=== PATIENT | male | born 1960 | race Two or more races ===

== ENCOUNTER → 2020-01-05 08:18 | Outpatient (REF) | payer OTHER, SELFPAY ==
--- NOTE | 2020-01-05 08:26 | CA_ITS ---
Transthoracic Echocardiogram Patient (Last, First, Middle): Tavares Cummings, Gender: Male Date of : 1960 Age: 59 Procedure Date: 01/05/2020 Procedure Type: Transthoracic Echocardiogram Location: OP Height: 162.56 cm Weight: 68.04 kg BSA: 1.73 m2 Heart Rate: bpm BP: 116 / 61 mmHg Analyst: JEAN CARLOS Referring MD: Glory Saeed MD Radiation Control Worker: Bimal Carlton MD Symptoms: Q21.0 - Ventricular septal defect Study Quality: Good ECG Rhythm: Sinus Conclusions: - 1. Small muscular VSD 2. Normal LV systolic and RV systolic function 3. Normal cardiac valvular Doppler 4. Normal RV systolic pressure 5. No pericardial effusion Findings Left Ventricle Normal left ventricular size, thickness, and systolic function. The visually estimated ejection fraction is between 60-65%. Diastolic function is normal for age. There is evidence of a small muscular ventricular septal defect with left to right shunting. Right Ventricle Normal right ventricular cavity size and systolic function. Atria Both atria are normal in size. There is no evidence of interatrial shunt. Aortic Valve Normal aortic valve structure and function. There is no aortic valve stenosis. There is no aortic valve regurgitation. Mitral Valve Normal mitral valve structure and function. There is trace mitral valve regurgitation. There is no mitral valve stenosis. Pulmonic Valve The pulmonic valve is likely normal. Tricuspid Valve Normal tricuspid valve structure. There is trace tricuspid valve regurgitation. The right ventricular systolic pressure is normal. The right ventricular systolic pressure is 25 mmHg. Normal right atrial pressure. There is no evidence of pulmonary hypertension. Great Vessels All visible segments of the aorta are normal in size. The pulmonary artery was not well visualized. Venous The inferior vena cava is normal in size and collapses greater than 50% with inspiration. Pericardium/Pleural There is no evidence of pericardial effusion. Prior Study Comparison No significant change compared to prior study dated: 09/06/2015. Measurements 2D Linear Measurements IVSd: 0.91 0.6-0.9/0.6-1.0 cm LVIDd: 4.81 3.9-5.3/4.2-5.9 cm LVIDd Index: 2.78 2.4-3.2/2.2-3.1 cm/m2 LVIDs: 3.47 2.0-3.6 cm LVPWd: 0.88 0.7-1.1 cm Ao Root: 2.70 2.1-3.5 cm LA Diam: 3.00 2.7-3.8/3.0-4.0 cm LAIDs Index: 1.73 1.5-2.3 cm/m2 LV Mass: 183.26 67-162/88-224 g LV Mass Index: 105.93 43-95/49-115 g/m2 LVOT Diam: 2.00 3.0+(-)1.3 cm 2D Systolic Function EF 4C: 54.10 >55% EF 2C: 61.40 >55% EF BiP: 56.70 >55% Mitral Valve MV Pk E: 0.78 MV PK A: 0.49 MV Decel Time: 187.00 E/A: 1.60 E'Lateral: 12.40 E'Medial: 10.20 E/E' Med: 7.60 E/E' Lat: 6.30 PHT: 55.00 MVA PHT: 4.00 Decel [place]: 4.14 Aortic Valve AoV Pk Ari: 1.21 AoV Pk Grad: 6.00 LVOT LVOT Pk Ari: 0.99 LVOT Mn Ari: 0.61 LVOT VTI: 0.21 LVOT Pk Grad: 4.00 LVOT Mn Grad: 2.00 LVOT Diam: 2.00 LVOT Area: 3.14 Diastolic Function MV Pk E: 0.78 MV Pk A: 0.49 E/A: 1.60 E'Medial: 10.20 E/E' Med: 7.60 E' Laterial: 12.40 E/E' Lat: 6.30 Tricuspid Valve TR Pk Ari: 2.33 TR Pk Grad: 22.00 RA Press: 3.00 RVSP: 25.00 Great Vessels Aorta Ao Root-2D: 2.70 2.0-3.7 cm Ao Asc: 2.90 2.1-3.4 cm Updated in Other Vendor System with Status of Final Bimal Carlton MD electronically signed on 01/06/2020 9:40:30 AM with status of Final
== END ==
LOC: HO.CARD 08:18
PROVIDERS: Visit Provider Internal Medicine
DX: Q21.0 Ventricular septal defect (principal)
CPT/HCPCS: 93306

== ENCOUNTER 2020-03-16 11:34 | Outpatient (REF) | payer OTHER, SELFPAY | END 2020-03-16 11:35 | disposition home or self-care (01) | LOC: HO.LAB 11:34 | PROVIDERS: PCP Internal Medicine; Visit Provider Internal Medicine | DX: Z20.828 Contact with and (suspected) exposure to other viral communicable diseases (principal) | CPT/HCPCS: 36415; C9803; U0003 ==

== ENCOUNTER 2020-05-11 15:11 | Outpatient (REF) | payer OTHER, SELFPAY | END 2020-05-11 15:12 | disposition home or self-care (01) | LOC: HO.LAB 15:11 | PROVIDERS: Visit Provider Internal Medicine | DX: Z20.822 Contact with and (suspected) exposure to COVID-19 (principal) | CPT/HCPCS: 36415; C9803; U0003; U0005 ==

== ENCOUNTER 2020-07-23 17:45 | Emergency (ER) | payer OTHER, SELFPAY ==
--- NOTE | ~2020-07-23 | XR_ITS ---
EXAMINATION: XR CHEST CLINICAL INFORMATION: Chest pain COMPARISON: 10/31/2017 TECHNIQUE: Frontal view of the chest was obtained. FINDINGS: The lungs are well expanded. There is no focal consolidation, edema, or effusion. No pneumothorax. The cardiomediastinal silhouette is within normal limits. No acute osseous abnormality. XR/XR chest 1V IMPRESSION: Clear lungs.
[2020-07-23 18:24] VITALS: BP 137/86; PULSE 58; RESP 20; TEMP 36.8; O2SAT 99; BMI 24.9
--- NOTE | 2020-07-23 18:26 | ECG_ITS ---
Test Reason : CHEST PAIN Blood Pressure : / mmHG Vent. Rate : 054 BPM Atrial Rate : 054 BPM P-R Int : 148 ms QRS Dur : 090 ms QT Int : 392 ms P-R-T Axes : 019 002 008 degrees QTc Int : 371 ms Sinus bradycardia Minimal voltage criteria for LVH, may be normal variant Borderline ECG When compared with ECG of 29-AUG-2019 20:28, No significant change was found Referred By: Generic ED Physician Electronically Signed By:WM WINTERS MD
[2020-07-23 18:55] LABS: MANUAL DIFF FLAG NO
[2020-07-23 19:03] LABS: Basophils Percent Auto 0.3 % (0-2); Eosinophils Absolute Auto 0.1 X10*3/uL (0.0-0.4); Eosinophils Percent Auto 1.3 % (0-4); Hematocrit 41.5 % (42-52); Hemoglobin 14.1 g/dl (14.0-18.0); Imm Gran Abs Auto 0.01 X10*3/uL (0.00-0.03); Imm Gran Pct Auto 0.1 % (0.0-0.4); Lymphocytes Absolute Auto 2.8 X10*3/uL (1.2-4.9); Lymphocytes Percent Auto 35.1 % (20-40); Mean Corpuscular Hemoglobin 29.4 pg (27.0-33.0); Mean Corpuscular Volume 86.6 fL (80-98); Mean Platelet Volume 10.3 fL (9.4-12.4); Monocytes Absolute Auto 0.7 X10*3/uL (0.1-1.2); Monocytes Percent Auto 8.2 % (2-11); Neutrophils Absolute Auto 4.4 X10*3/uL (2.0-8.3); Platelet Count 210 X10*3/uL (160-400); Red Blood Count 4.79 X10*6/uL (4.60-5.80)
[2020-07-23 19:24] LABS: Anion Gap 13 (12-20); Blood Urea Nitrogen 17 mg/dL (9-16); Carbon Dioxide 29 mmol/L (22-29); Chloride 101 mmol/L (96-108); Creatinine Clr Calc Pharmacy 63.1; Estimated Glomerular Filt Rate > 60; Glucose Random 90 mg/dL (60-115); Sodium 139 mmol/L (135-145)
[2020-07-23 19:32] LABS: Troponin-I High Sensitivity < 3.5 ng/L (<3.5-35.0)
--- NOTE | 2020-07-24 01:48 | ED_ITS ---
HPI - Chest Pain General Chief Complaint: Chest Pain Stated Complaint: chest pain Time Seen by Provider: 07/24/20 00:17 Source: patient Mode of arrival: ambulatory Limitations: language barrier History of Present Illness HPI narrative: 59-year-old male with past history of ventral septal defect presents with chest pain that started while he was working in the heat. 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 He stated that he was sweating and noted to have substernal chest pain that is now alleviated. The pain started at 4:00 p.m., felt tight, and was easily resolved with rest. He did report some dizziness. At this time he denies chest pain or pressure, palpitations, shortness of breath, shortness breath on exertion, abdominal pain, abdominal distention, dysuria, hematuria, fevers, chills, nausea, vomiting, diarrhea, constipation, ed fannie, dizziness, lightheadedness, or weakness. MD complaint: chest discomfort Pertinent past history: other (Ventral septal defect) Onset (ago): hour(s) (4:00 p.m.) Timing of current episode: episodic and now resolved Prior episodes: No Onset: during exertion (And prolonged heat exposure) Pain location: substernal Pain radiation: none Severity: mild Quality: tightness Relieving factors: rest Exacerbating factors: exertion (Prolonged heat exposure) Treatment prior to arrival: none Risk Factors Thoracic aortic dissection risk factors: none Related Data Previous Rx's Medication Instructions Recorded acetaminophen 650 mg 650 mg PO Q8H PRN 30 Days #90 tab 06/19/20 tablet,extended release Allergies Allergy/AdvReac Type Severity Reaction Status Date / Time omeprazole Allergy Intermediate sob,tachyca Verified 07/23/20 18:23 rdia ribavirin Allergy Intermediate rash Verified 07/23/20 18:23 Review of Systems Review of Systems: Constitutional: No Weight loss, No Fever, No Chills, No Night Sweats, No Fatigue, No Malaise ENT/Mouth: No Hearing loss, No Ear Pain, No Nasal Congestion, No Sinus Pain, No Hoarseness, No sore throat, No Rhinorrhea, No Swallowing Difficulty Eyes: No Eye Pain, No Swelling, No Redness, No Foreign Body, No Discharge, No Vision Changes Cardiovascular: Positive and now resolved Chest Pain, no SOB, no Dyspnea on Exertion, No Orthopnea, No Edema, No Palpitations Respiratory: No Cough, No Sputum, No Wheezing, No Smoke Exposure, No Dyspnea Gastrointestinal: pos Nausea, No Vomiting, No Diarrhea, No abdominal Pain, No Hematochezia, No Melena Genitourinary: No irregular bleeding, No Dysuria, No Urinary Frequency, No Hematuria, No Urinary Incontinence, No Urgency, No Flank Pain, No Urinary Flow Changes, No Hesitancy Musculoskeletal: No joint pain, No Myalgias, No Joint Swelling Skin: No Skin Lesions, No rash Neuro: No Weakness, No Numbness, No Paresthesias, No Loss of Consciousness, No Dizziness, No Headache Psych: No Anxiety/Panic, No Depression, No SI/HI/AH/VH Heme/Lymph: No Bruising, No Bleeding,No Lymphadenopathy Endocrine: No Polyuria, No Polydipsia, No Temperature Intolerance Yes all other systems are reviewed and are negative [facility] Past Medical History Attestation statement: The following information was validated with the patient. Source: old records reviewed Medical History History of hepatitis C virus infection VSD (ventricular septal defect) Surgical History No pertinent past surgical history Family History Family History Father CVD (cardiovascular disease) Mother Hypertension Family/Other FH: mental illness Social History Social History Alcohol intake: former Year quit: 2009 Smoking Status: Former smoker Tobacco Type: Cigarette Advance Directives: No Advance Directives Information Provided: No Physical Exam Vital Signs: Vital Signs: Last Vital Signs Temp 98.2 F 07/23/20 18:24 Pulse 58 07/23/20 18:24 Resp 20 07/23/20 18:24 BP 137/86 07/23/20 18:24 Pulse Ox 99 07/23/20 18:24 Body Mass Index 24.9 Appearance: Alert. Oriented X3. No acute distress. Eyes: Pupils equal, round and reactive to light. ENT: Pharynx normal. Neck: Normal inspection. Neck supple. CVS: Normal heart rate and rhythm. Pulses normal. Respiratory: No respiratory distress. Breath sounds normal. Abdomen: Soft and nontender. Skin: Skin warm and dry. Normal skin color. Normal skin turgor. Extremities: No lower extremity edema. Neuro: No motor deficit. No sensory deficit. Course Course Course Narrative: 59-year-old male with past medical history of ventral septal defect presents with an episode of chest pain that occurred while he was working in prolonged heat. Patient's lab values, chest x-ray and EKG were completed while he was in the waiting room. Lab values are negative, troponin is 0, EKG shows no changes from prior EKGs dating back to August of 2019. There are no electrolyte imbalances, patient does not have any chest pain at this time, is eating, drinking, and has no symptoms. Chest x-ray is negative. Plan of care is to discharge home. Patient verbalized understanding of and agrees to plan of care. negative cleaner utilized for all correspondence. Google translate utilized for discharge instructions. MDM - Chest Pain Differential Diagnosis Differential diagnosis: Likely pneumothorax, atypical chest pain, st elevation myocardial infarction and costochondritis Differential diagnosis: Heat exhaustion, electrolyte imbalance Medical Records Data Attestation: I reviewed the patient's medical records. Lab Data Attestation: I reviewed the patient's lab results. Result diagrams: 07/23/20 18:49 07/23/20 18:49 Labs: Lab Results 07/23/20 07/23/20 07/23/20 Range/Units 18:49 18:49 18:49 WBC 8.0 (4.8-10.8) X10*3/uL RBC 4.79 (4.60-5.80) X10*6/uL Hgb 14.1 (14.0-18.0) g/dl Hct 41.5 L (42-52) % MCV 86.6 (80-98) fL MCH 29.4 (27.0-33.0) pg MCHC 34.0 (31.0-36.0) g/dl RDW 12.0 (11.0-16.0) % Plt Count 210 (160-400) X10*3/uL MPV 10.3 (9.4-12.4) fL Immature Gran % (Auto) 0.1 (0.0-0.4) % Neut % (Auto) 55.0 (45-73) % Lymph % (Auto) 35.1 (20-40) % [place] % (Auto) 8.2 (2-11) % Eos % (Auto) 1.3 (0-4) % Baso % (Auto) 0.3 (0-2) % Lymph # (Auto) 2.8 (1.2-4.9) X10*3/uL [place] # (Auto) 0.7 (0.1-1.2) X10*3/uL Eos # (Auto) 0.1 (0.0-0.4) X10*3/uL Baso # (Auto) 0.0 (0.0-0.2) X10*3/uL Abs Immat Gran (auto) 0.01 (0.00-0.03) X10*3/uL Absolute Neuts (auto) 4.4 (2.0-8.3) X10*3/uL Absolute Nucleated RBC 0.000 (0.0-0.012) X10*3/uL Nucleated RBC % (auto) 0.0 (0.0-0.2) /100WBC Hold Blue Top SEE NOTE Sodium 139 (135-145) mmol/L Potassium 4.0 (3.3-5.1) mmol/L Chloride 101 (96-108) mmol/L Carbon Dioxide 29 (22-29) mmol/L Anion Gap 13 (12-20) BUN 17 H (9-16) mg/dL Creatinine 1.08 (0.5-1.4) mg/dL Estim Creat Clear Calc 63.1 Estimated GFR > 60 Random Glucose 90 (60-115) mg/dL Calcium 10.0 (8.4-10.2) mg/dL Troponin I High Sens (<3.5-35.0) ng/L 07/23/20 Range/Units 18:49 WBC (4.8-10.8) X10*3/uL RBC (4.60-5.80) X10*6/uL Hgb (14.0-18.0) g/dl Hct (42-52) % MCV (80-98) fL MCH (27.0-33.0) pg MCHC (31.0-36.0) g/dl RDW (11.0-16.0) % Plt Count (160-400) X10*3/uL MPV (9.4-12.4) fL Immature Gran % (Auto) (0.0-0.4) % Neut % (Auto) (45-73) % Lymph % (Auto) (20-40) % [place] % (Auto) (2-11) % Eos % (Auto) (0-4) % Baso % (Auto) (0-2) % Lymph # (Auto) (1.2-4.9) X10*3/uL [place] # (Auto) (0.1-1.2) X10*3/uL Eos # (Auto) (0.0-0.4) X10*3/uL Baso # (Auto) (0.0-0.2) X10*3/uL Abs Immat Gran (auto) (0.00-0.03) X10*3/uL Absolute Neuts (auto) (2.0-8.3) X10*3/uL Absolute Nucleated RBC (0.0-0.012) X10*3/uL Nucleated RBC % (auto) (0.0-0.2) /100WBC Hold Blue Top Sodium (135-145) mmol/L Potassium (3.3-5.1) mmol/L Chloride (96-108) mmol/L Carbon Dioxide (22-29) mmol/L Anion Gap (12-20) BUN (9-16) mg/dL Creatinine (0.5-1.4) mg/dL Estim Creat Clear Calc Estimated GFR Random Glucose (60-115) mg/dL Calcium (8.4-10.2) mg/dL Troponin I High Sens < 3.5 (<3.5-35.0) ng/L Imaging Data Chest x-ray: Attestation: I personally reviewed and interpreted this imaging study as follows: Radiologist's impression: EXAMINATION: XR CHEST CLINICAL INFORMATION: Chest pain COMPARISON: 10/31/2017 TECHNIQUE: Frontal view of the chest was obtained. FINDINGS: The lungs are well expanded. There is no focal consolidation, edema, or effusion. No pneumothorax. The cardiomediastinal silhouette is within normal limits. No acute osseous abnormality. XR/XR chest 1V IMPRESSION: Clear lungs. ECG Data ECG #1: Attestation: I personally reviewed and interpreted this ECG as follows: ECG interpretation date: 07/23/20 ECG interpretation time: 18:41 Interpretation: Vent. rate 54 BPM UT interval 148 ms QRS duration 90 ms QT/QTc 392/371 ms P-R-T axes 19 2 8 Sinus bradycardia Minimal voltage criteria for LVH, may be normal variant Borderline ECG When compared with ECG of 29-AUG-2019 20:28, No significant change was found Scores Heart Score History: -0- slightly suspicious ECG: -1- non specific repolarization disturbance Age: -1- >45 - <65 Risk factory: -0- no risk factors known Troponin: -0- < or = normal limit Score: 2 Risk: 1.7% Discharge Plan Discharge Clinical Impression: Heat exhaustion Qualifiers: Encounter type: initial encounter Qualified Code(s): T67.5XXA - Heat exhaustion, unspecified, initial encounter Chest pain Qualifiers: Chest pain type: unspecified Qualified Code(s): R07.9 - Chest pain, unspecified Patient Disposition: Home, Self-Care Instructions: Heat Exhaustion (ED), Noncardiac Chest Pain (ED) Additional Instructions: Se le evalu? por dolor en el pecho que se present? con agotamiento por calor. Si las enzimas card?acas son normales, flores radiograf?a de t?rax es normal, flores EKG es ritmo sinusal normal y no tiene cambios desde 2019. Ya no tiene dolor en el pecho, es muy probable que poli dolor en el pecho se deba a un golpe de calor. Aumente la cantidad de l?quidos stefania las pr?ximas 24 horas. Madelin un seguimiento con flores m?dico de atenci?n primaria a finales de esta semana. Thanh por elegir poli departamento de emergencias para flores evaluaci?n. Madelin un seguimiento con el m?dico de atenci?n primaria seg?n sea necesario. Regrese al departamento de emergencias por cualquier s?ntoma nuevo, preocupante o que empeore. You were evaluated for chest pain that presented with heat exhaustion. If cardiac enzymes are normal, your chest x-ray is normal, your EKG is normal sinus rhythm and has no changes since August of 2019. You no longer have chest pain, it is highly likely that this chest pain is because of heat stroke. Please increase fluids over the next 24 hours. Follow- up with primary care physician later this week. Thank you for choosing this emergency department for evaluation. Please follow-up with primary care physician as needed. Return to the emergency department for any new, concerning, or worsening symptoms. Prescriptions: No Action acetaminophen 650 mg tablet extended release 650 mg PO Q8H PRN (Reason: pain) 30 Days Qty: 90 RF: 4 Interventions: ED Discharge Assessment Last Done: 07/24/20 00:45 Discharge Date/Time: 07/24/20 00:46
== END 2020-07-24 00:46 | disposition home or self-care (01) ==
PROVIDERS: Emergency Provider Emergency Medicine; PCP Internal Medicine
DX: R07.9 Chest pain, unspecified (principal); T67.5XXA Heat exhaustion, unspecified, initial encounter; X30.XXXA Exposure to excessive natural heat, initial encounter; Y93.89 Activity, other specified; Y92.9 Unspecified place or not applicable; Y99.9 Unspecified external cause status
CPT/HCPCS: 36415; 71045; 80048; 84484; 85025; 93005; 99283

== ENCOUNTER 2021-01-08 09:09 | Outpatient (REF) | payer OTHER, SELFPAY | END 2021-01-08 09:10 | disposition home or self-care (01) | LOC: HO.LAB 09:09 | PROVIDERS: PCP Internal Medicine; Visit Provider Internal Medicine | DX: Z20.822 Contact with and (suspected) exposure to COVID-19 (principal) | CPT/HCPCS: C9803; U0003; U0005 ==

== ENCOUNTER 2021-02-18 10:24 | Emergency (ER) | payer OTHER, SELFPAY ==
--- NOTE | ~2021-02-18 | XR_ITS ---
EXAMINATION: XR CHEST CLINICAL INFORMATION: Chest pain COMPARISON: 07/23/2010 TECHNIQUE: Frontal view of the chest was obtained. FINDINGS: No significant abnormality is noted involving the heart, lungs, mediastinum, bony thorax or soft tissues. XR/XR chest 1V IMPRESSION: No acute pulmonary disease. No significant change from prior study.
--- NOTE | 2021-02-18 10:28 | ECG_ITS ---
Test Reason : cp Blood Pressure : / mmHG Vent. Rate : 076 BPM Atrial Rate : 076 BPM P-R Int : 138 ms QRS Dur : 086 ms QT Int : 392 ms P-R-T Axes : 029 000 -01 degrees QTc Int : 441 ms Sinus rhythm with marked sinus arrhythmia Minimal voltage criteria for LVH, may be normal variant ( R in aVL ) Borderline ECG When compared with ECG of 23-JUL-2020 18:41, QT has lengthened Referred By: Generic ED Physician Electronically Signed By:WM WINTERS MD
[2021-02-18 12:16] VITALS: BP 148/97; PULSE 54; RESP 17; TEMP 36.8; O2SAT 100; BMI 24.9
[2021-02-18 12:51] LABS: MANUAL DIFF FLAG NO
[2021-02-18 12:53] LABS: Basophils Percent Auto 0.3 % (0-2); Eosinophils Absolute Auto 0.1 X10*3/uL (0.0-0.4); Hematocrit 43.3 % (42.0-52.0); Hemoglobin 14.6 g/dl (14.0-18.0); Imm Gran Abs Auto 0.01 X10*3/uL (0.00-0.03); Imm Gran Pct Auto 0.1 % (0.0-0.4); Lymphocytes Absolute Auto 1.9 X10*3/uL (1.2-4.9); Lymphocytes Percent Auto 26.6 % (20-40); Mean Corpuscular HGB Conc 33.7 g/dl (31.0-36.0); Mean Corpuscular Hemoglobin 29.3 pg (27.0-33.0); Mean Corpuscular Volume 86.8 fL (80.0-98.0); Mean Platelet Volume 10.1 fL (9.4-12.4); Monocytes Absolute Auto 0.6 X10*3/uL (0.1-1.2); Monocytes Percent Auto 8.1 % (2-11); Neutrophils Absolute Auto 4.5 x10*3/uL (2.0-8.3); Neutrophils Percent Auto 63.9 % (45-73); Platelet Count 238 X10*3/uL (160-400); Red Blood Count 4.99 X10*6/uL (4.60-5.80)
[2021-02-18 13:11] LABS: Anion Gap 13 (12-20); Blood Urea Nitrogen 13 mg/dL (9-16); Carbon Dioxide 28 mmol/L (22-29); Chloride 102 mmol/L (96-108); Creatinine Clr Calc Pharmacy 65.4; Estimated Glomerular Filt Rate > 60; Glucose Random 100 mg/dL (60-115); Potassium 4.3 mmol/L (3.3-5.1); Sodium 139 mmol/L (135-145)
[2021-02-18 13:15] LABS: Troponin-I High Sensitivity < 3.5 ng/L (<3.5-35.0)
[2021-02-18 13:17] LABS: Calcium 10.7 mg/dL (8.4-10.2)
--- NOTE | 2021-02-18 16:40 | ED.CHESTPAIN ---
HPI - Chest Pain General Chief Complaint: Chest Pain Stated Complaint: chest pain, heart murmur Time Seen by Provider: 02/18/21 16:27 History of Present Illness HPI narrative: Patient is a 60-year-old male presents today with having palpitation. The symptoms started last night. Has been fairly constant. Not associated with ambulation or exertion. Not associated with any shortness of breath. No history of diabetes, hypertension, high cholesterol, smoking. No history of syncope or near syncope. No history of [place]. No history of recreational drug use. Patient from home. No leg swelling. No history of blood clots. No history of cancer. No family history of PE. Patient complained also of some gastric acid. Claims these symptom was fairly constant all night. Related Data Previous Rx's Medication Instructions Recorded acetaminophen 650 mg 650 mg PO Q8H PRN 30 Days #90 tab 06/19/20 tablet,extended release dicyclomine 20 mg tablet 20 mg PO TID 30 Days #90 tab 10/18/20 famotidine 20 mg tablet (Pepcid) 20 mg PO BID 5 Days #10 tab 02/18/21 Allergies Allergy/AdvReac Type Severity Reaction Status Date / Time omeprazole Allergy Intermediate sob,tachyca Verified 02/18/21 12:16 rdia ribavirin Allergy Intermediate rash Verified 02/18/21 12:16 Review of Systems Review of Systems: No fever no chills no cough no congestion or upper respiratory symptoms no diaphoresis no history of blood clots Yes all other systems are reviewed and are negative PMFSH Past Medical History Attestation statement: The following information was validated with the patient. Medical History Abdominal gas pain History of hepatitis C virus infection VSD (ventricular septal defect) Surgical History No pertinent past surgical history Family History Family History Father CVD (cardiovascular disease) Mother Hypertension Family/Other FH: mental illness Social History Social History Housing: Apartment Alcohol intake: former Year quit: 2009 Patient Tobacco Use Status: Former Tobacco user Tobacco use type: Cigarette e-Cigarette/Vaping Use: Never Used Second Hand Smoke Exposure: No Advance Directives: No Advance Directives Information Provided: Yes service: No Current occupational status: other Physical Exam Vital Signs: Vital Signs: Last Vital Signs Temp 98.2 F 02/18/21 12:16 Pulse 54 02/18/21 12:16 Resp 17 02/18/21 12:16 BP 148/97 H 02/18/21 12:16 Pulse Ox 100 02/18/21 12:16 BMI result Body Mass Index 24.9 Appearance: Alert. Oriented X3. No acute distress. Eyes: Pupils equal, round and reactive to light. ENT: Pharynx normal. Neck: Normal inspection. Neck supple. No lymph nodes noted. No crepitus CVS: Normal heart rate and rhythm. Pulses normal. Normal S1 and S2 Respiratory: No respiratory distress. Breath sounds normal. No Wheezing. No rales Abdomen: Soft and nontender. No rigidity. No distention. good BS x4 Skin: Skin warm and dry. Normal skin color. Normal skin turgor. Extremities: No lower extremity edema. Neurovascular intact to all extremities. No Lacerations. No Rash Neuro: Oriented X 3. No motor deficit. No sensory deficit. Moving all extermities. No slurred speech MDM - Chest Pain MDM Narrative Medical decision making narrative: Patient's EKG showed a sinus pattern heart rate was 70 DE QRS QT within normal limits is no acute ST segment elevation. Chest x-ray showed no evidence of pneumonia pneumothorax. Patient history not consistent with ACS. In the setting of negative troponin. In the setting of no risk factor patient's age of 60. Normal EKG. Jeffrey heart score is less than 3. Will discharge patient home. Patient has no risk for PE history not consistent with PE. Chest x-ray showed no pneumonia no pneumothorax. Will discharge patient home close follow-up on [facility] Medical Records Data Attestation: I reviewed the patient's medical records. Lab Data Result diagrams: 02/18/21 12:47 02/18/21 12:47 Labs: Lab Results 02/18/21 02/18/21 02/18/21 Range/Units 12:47 12:47 12:47 WBC 7.0 (4.8-10.8) X10*3/uL RBC 4.99 (4.60-5.80) X10*6/uL Hgb 14.6 (14.0-18.0) g/dl Hct 43.3 (42.0-52.0) % MCV 86.8 (80.0-98.0) fL MCH 29.3 (27.0-33.0) pg MCHC 33.7 (31.0-36.0) g/dl RDW 12.0 (11.0-16.0) % Plt Count 238 (160-400) X10*3/uL MPV 10.1 (9.4-12.4) fL Immature Gran % (Auto) 0.1 (0.0-0.4) % Neut % (Auto) 63.9 (45-73) % Lymph % (Auto) 26.6 (20-40) % Rains % (Auto) 8.1 (2-11) % Eos % (Auto) 1.0 (0-4) % Baso % (Auto) 0.3 (0-2) % Lymph # (Auto) 1.9 (1.2-4.9) X10*3/uL Rains # (Auto) 0.6 (0.1-1.2) X10*3/uL Eos # (Auto) 0.1 (0.0-0.4) X10*3/uL Baso # (Auto) 0.0 (0.0-0.2) X10*3/uL Abs Immat Gran (auto) 0.01 (0.00-0.03) X10*3/uL Absolute Neuts (auto) 4.5 (2.0-8.3) x10*3/uL Absolute Nucleated RBC 0.000 (0.0-0.012) X10*3/uL Nucleated RBC % (auto) 0.0 (0.0-0.2) /100WBC Sodium 139 (135-145) mmol/L Potassium 4.3 (3.3-5.1) mmol/L Chloride 102 (96-108) mmol/L Carbon Dioxide 28 (22-29) mmol/L Anion Gap 13 (12-20) BUN 13 (9-16) mg/dL Creatinine 1.03 (0.5-1.4) mg/dL Estim Creat Clear Calc 65.4 Estimated GFR > 60 Random Glucose 100 (60-115) mg/dL Calcium 10.7 H D (8.4-10.2) mg/dL Troponin I High Sens < 3.5 (<3.5-35.0) ng/L Discharge Plan Discharge Clinical Impression: Chest pain Patient Disposition: Home, Self-Care Instructions: Chest Pain (ED), Heart Palpitations (ED) Prescriptions: New famotidine [Pepcid] 20 mg tablet 20 mg PO BID 5 Days Qty: 10 RF: 0 No Action acetaminophen 650 mg tablet extended release 650 mg PO Q8H PRN (Reason: pain) 30 Days Qty: 90 RF: 4 dicyclomine 20 mg tablet 20 mg PO TID 30 Days Qty: 90 RF: 0 Referrals: Bimal Carlton MD [Physician] - 2 days
[2021-02-18 16:56] VITALS: BP 125/66; PULSE 52; RESP 16; TEMP 36.8; O2SAT 99
== END 2021-02-18 17:10 | disposition home or self-care (01) ==
LOC: HO.ED 16:44
PROVIDERS: Emergency Provider Emergency Medicine Emergency Medical Services; PCP Internal Medicine
DX: R07.9 Chest pain, unspecified (principal)
CPT/HCPCS: 36415; 71045; 80048; 84484; 85025; 93005; 99284

== ENCOUNTER 2021-06-11 08:53 | Outpatient (REF) | payer OTHER, SELFPAY ==
[2021-06-11 09:27] LABS: COVID-19 Test Positive (Negative); IDNOW Serial# 08D9AD1C
== END 2021-06-11 08:54 | disposition home or self-care (01) ==
LOC: HO.LAB 08:53
PROVIDERS: PCP Internal Medicine; Visit Provider Internal Medicine
DX: Z20.822 Contact with and (suspected) exposure to COVID-19 (principal)
CPT/HCPCS: 87635; C9803

== ENCOUNTER 2021-08-27 09:45 | Outpatient (REF) | payer OTHER, SELFPAY ==
--- NOTE | ~2021-08-27 | US_ITS ---
EXAMINATION: US COMPLETE ABDOMEN WITH LIVER ELASTOGRAPHY CLINICAL INFORMATION: History of hepatitis C. COMPARISON: None. TECHNIQUE: Real-time imaging of the abdominal viscera. Noninvasive ultrasound liver fibrosis assessment is performed using [employer] Elast[employer] point quantification shear wave elastography (2D-SWE) with a C5-2 MHz transducer. Multiple elastography samples are obtained. FINDINGS: PANCREAS: Normal. The visualized pancreatic head and body are normal in appearance. The remainder of the pancreas is obscured from visualization by the overlying bowel gas. ABDOMINAL AORTA: The proximal, middle, and distal aortic segments are normal in caliber. INFERIOR VENA CAVA: Visualized portions are normal. LIVER: Normal. The liver demonstrates normal size, contour and echogenicity. No focal lesion or intrahepatic biliary duct dilatation. The right lobe measures 11.4 cm in length. The left lobe measures 11.3 cm in length. Portal flow is hepatopedal. Shear wave liver elastography median stiffness is 2.03 m/s (reference: normal median stiffness is 1.3 m/s or less). IQR/median stiffness to assess sampling precision is 0.25 (reference: good quality data set is IQR/median stiffness of 0.15 or less). GALLBLADDER: Gallbladder wall thickness is 0.2 cm The gallbladder is physiologically distended without evidence of stones, sludge, polyps, wall thickening or pericholecystic fluid. COMMON BILE DUCT: Normal in caliber measuring 0.5 cm in diameter. RIGHT KIDNEY: Normal. No hydronephrosis. No renal calculi or focal parenchymal lesions. The kidney measures 9.1 cm in maximum dimension. LEFT KIDNEY: Normal. No hydronephrosis. No renal calculi or focal parenchymal lesions. The kidney measures 9.6 cm in maximum dimension. SPLEEN: Normal. The spleen measures 8.3 cm in maximum dimension. FREE FLUID: None. US/US abdomen comp w elastography IMPRESSION: 1. Unremarkable complete abdominal ultrasound. 2. Liver elastography: Median liver stiffness 2.03 m/s corresponding to cACLD suggestive. REFERENCE: Society of Radiologists in Ultrasound Liver Stiffness Thresholds (2019): LIVER STIFFNESS THRESHOLDS: *Liver Stiffness equal or less than 1.3 m/s: High probability of being normal. *Liver Stiffness less than 1.7 m/s: In the absence of other known clinical signs, rules out compensated advanced chronic liver disease. *Liver Stiffness 1.7-2.1 m/s: Suggestive of compensated advanced chronic liver disease but need further test for confirmation. *Liver Stiffness over 2.1 m/s: Rules in compensated advanced chronic liver disease. *Liver Stiffness over 2.4 m/s: Suggestive of clinically significant portal hypertension. QUALITY OF DATA SET: *IQR/Median value equal or less than 0.15 implies a quality data set. *IQR/Median value over 0.15 implies a poor quality data set. SIGNIFICANT CHANGE FROM PRIOR EXAM: Significant change if liver stiffness measurement is 10% or greater from prior exam. OTHER CONSIDERATIONS: The stage of liver fibrosis may be overestimated in the setting of acute hepatitis, liver inflammation, elevated liver function tests, hepatic vascular congestion, obstructive cholestasis, non-fasting state, and infiltrative diseases such as amyloidosis and lymphoma. In some patients with NAFLD, the liver stiffness thresholds for compensated advanced chronic liver disease may be lower. In causes other than viral hepatitis and NAFLD, liver stiffness thresholds are not well established.
[2021-08-27 10:53] LABS: MANUAL DIFF FLAG NO
[2021-08-27 11:44] LABS: Basophils Percent Auto 0.2 % (0-2); Eosinophils Absolute Auto 0.1 X10*3/uL (0.0-0.4); Eosinophils Percent Auto 1.4 % (0-4); Hematocrit 42.8 % (42.0-52.0); Hemoglobin 14.3 g/dl (14.0-18.0); Imm Gran Abs Auto 0.02 X10*3/uL (0.00-0.03); Imm Gran Pct Auto 0.4 % (0.0-0.4); Lymphocytes Percent Auto 34.2 % (20-40); Mean Corpuscular HGB Conc 33.4 g/dl (31.0-36.0); Mean Corpuscular Hemoglobin 28.8 pg (27.0-33.0); Mean Corpuscular Volume 86.1 fL (80.0-98.0); Mean Platelet Volume 10.6 fL (9.4-12.4); Monocytes Absolute Auto 0.5 X10*3/uL (0.1-1.2); Monocytes Percent Auto 8.6 % (2-11); Neutrophils Absolute Auto 3.2 x10*3/uL (2.0-8.3); Neutrophils Percent Auto 55.2 % (45-73); Platelet Count 250 X10*3/uL (160-400); Red Blood Count 4.97 X10*6/uL (4.60-5.80); Red Cell Distribution Width 12.3 % (11.0-16.0); White Blood Count 5.7 X10*3/uL (4.8-10.8)
[2021-08-27 11:51] LABS: INTERNATIONAL NORM RATIO 1.2 (0.9-1.1); Prothrombin Time 13.1 SEC (9.9-13.0)
[2021-08-27 12:26] LABS: Alanine Aminotransferase 22 U/L (0-40); Albumin Level 4.8 g/dL (3.5-5.0); Alkaline Phosphatase 52 U/L (39-117); Aspartate Amino Transferase 28 U/L (5-37); Bilirubin Direct 0.2 mg/dL (0.0-0.5); Bilirubin Total 0.7 mg/dL (0.0-1.0); Total Protein 8.4 g/dL (6.5-8.0)
[2021-08-29 12:06] LABS: Alpha Fetoprotein 7.6 ng/mL (<6.1)
[2021-08-30 13:21] LABS: HCV Log PCR <1.18 NOT DETECTED Log IU/mL (NOT DETECTED); HepC Viral Load <15 NOT DETECTED IU/mL (NOT DETECTED)
[2021-09-02 20:21] LABS: FIB-ALT 17 U/L (9-46); FIB-Alpha-2-Macroglobulin 452 mg/dL (106-279); FIB-Apolipoprotein A1 183 mg/dL (94-176); FIB-GGT 33 U/L (3-85); FIB-Haptoglobin 47 mg/dL (43-212); FIB-Total Bilirubin 0.6 mg/dL (0.2-1.2); Liver Fibrosis Score 0.71; Liver Fibrosis Stage F3; Nec Inflam Act Grade A0; Nec Inflam Act Score 0.11
== END 2021-08-27 09:46 | disposition home or self-care (01) ==
LOC: HO.US 09:45
PROVIDERS: Visit Provider Internal Medicine
DX: K74.00 Hepatic fibrosis, unspecified (principal); Z86.19 Personal history of other infectious and parasitic diseases
CPT/HCPCS: 36415; 76705; 76981; 80076; 81596; 82105; 85025; 85610; 87522

== ENCOUNTER 2021-09-24 08:49 | Outpatient (REF) | payer OTHER, SELFPAY ==
[2021-09-24 09:18] LABS: COVID-19 Test Negative (Negative)
== END 2021-09-24 08:50 | disposition home or self-care (01) ==
LOC: HO.LAB 08:49
PROVIDERS: Visit Provider Internal Medicine
DX: Z20.822 Contact with and (suspected) exposure to COVID-19 (principal)
CPT/HCPCS: 87635; C9803

== ENCOUNTER 2022-11-25 08:11 | Outpatient (REF) | payer OTHER, SELFPAY ==
[2022-11-25 11:10] LABS: Alanine Aminotransferase 14 U/L (0-40); Albumin Level 4.3 g/dL (3.5-5.0); Alkaline Phosphatase 44 U/L (39-117); Anion Gap 12 (12-20); Aspartate Amino Transferase 20 U/L (5-37); Bilirubin Total 0.6 mg/dL (0.0-1.0); Blood Urea Nitrogen 13 mg/dL (9-16); Calcium 9.9 mg/dL (8.4-10.2); Carbon Dioxide 28 mmol/L (22-29); Chloride 105 mmol/L (96-108); Cholesterol 240 mg/dL (<200); Estimated Glomerular Filt Rate > 60; Glucose Fasting 90 mg/dL (60-99); HDL Cholesterol 51 mg/dL (>40); LDL Cholesterol Calculated 162 mg/dL (<100); Sodium 141 mmol/L (135-145); Total Protein 7.9 g/dL (6.5-8.0); Triglycerides 135 mg/dL (<150)
== END 2022-11-25 08:12 | disposition home or self-care (01) ==
LOC: HO.LAB 08:11
PROVIDERS: PCP Internal Medicine; Visit Provider Internal Medicine
DX: Z00.00 Encounter for general adult medical examination without abnormal findings (principal)
CPT/HCPCS: 36415; 80053; 80061

== ENCOUNTER 2022-12-03 10:42 | Outpatient (AMB) | payer OTHER, SELFPAY ==
--- NOTE | 2022-12-03 10:44 | MHC.PC.OV ---
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 Accompanied by: Self / Same As Patient Allergies omeprazole Allergy (Intermediate, Verified 12/03/22 11:05) sob,tachycardia ribavirin Allergy (Intermediate, Verified 12/03/22 11:05) rash Medication List - Last Reconciled 12/03/22 by Glory Saeed MD acetaminophen ER 650 mg PO Q8H PRN 30 days losartan 25 mg PO DAILY Tobacco use date assessed: 04/10/22 Dental Screening Dental Screen Date: 12/03/22 Did you have a dental visit in the last 12 months?: Yes Did you have a dental problem in the last 6 months where you did not have access to dental care?: No Was dental information given to patient?: Patient has dentist HPI HPI Comments History of Present Illness Details This is a 62-year-old male with hypertension that comes for follow-up on recent labs. Has elevated cholesterol with a [place] risk score of 11% chance of having a heart attack or stroke in the next 10 years therefore I will start him on statins. Blood pressure stable. No chest pain or shortness of breath PFSH Medical History Abdominal gas pain History of hepatitis C virus infection VSD (ventricular septal defect) Surgical History No pertinent past surgical history Family History Father CVD (cardiovascular disease) Mother Hypertension Family/Other FH: mental illness Social History Housing: Apartment Alcohol intake: former Year quit: 2009 Patient Tobacco Use Status: Former Tobacco user Tobacco use type: Cigarette e-Cigarette/Vaping Use: Never Used Second Hand Smoke Exposure: No service: No Current occupational status: other Cognitive needs: No Hearing needs: No Vision needs: Yes (reading glasses) Questionnaire Thrive Questionnaire Date Thrive assessed: 04/10/22 KATEY-7 AMB Questionnaire KATEY-7 Date KATEY - 7 assessed: 04/10/22 Source: Developed by Drs. Jd Smith, Felicitas Cosme, Leonardo Rogers and colleagues, with an educational espinoza from [employer]. Review of Systems Const All systems reviewed & are unremarkable except as noted in HPI and below Eyes Reports no additional complaints, Denies change in vision and Denies other visual disturbances Card Denies chest pain at rest, Denies chest pain with activity, Denies edema, Denies irregular heart rhythm, Denies claudication, Denies dyspnea, Denies dyspnea on exertion, Denies orthopnea, Denies paroxysmal nocturnal dyspnea and Denies slow heart rate Resp Denies cough, Denies dyspnea and Denies dyspnea on exertion GI Denies abdominal pain, Denies change in bowel habits, Denies excessive flatus, Denies nausea and Denies vomiting Denies urinary hesitancy, Denies urinary incontinence and Denies urinary urgency Musc Denies abnormal gait, Denies atrophy, Denies deformity and Denies limited range of motion Skin/Breast Denies bleeding lesions, Denies changing lesions and Denies rash Neuro Denies abnormal gait and Denies lack of coordination Physical exam (Primary Care) Vital Signs: Last Vital Signs BP 110/70 12/03/22 10:45 BMI result Body Mass Index 25.6 Tobacco/Smoking Status: Tobacco use Status Tobacco use date assessed 04/10/22 12/03/22 10:46 Patient Tobacco Use Status Former Tobacco user 12/03/22 10:46 Tobacco use type Cigarette 12/03/22 10:46 e-Cigarette/Vaping Use Never Used 12/03/22 10:46 Thrive Assessment: Date of Thrive Assessment Date Thrive assessed 04/10/22 12/03/22 10:46 Eyes General: appearance normal, both eyes and all related structures Eyelids: Yes eyelids normal Conjunctivae: conjunctivae normal Neck Neck: Yes normal visual inspection and Yes supple Resp Effort & Inspection: normal respiratory effort Auscultation: clear to auscultation bilaterally Cardio Jugular venous distension: no JVD Rate: regular rate Rhythm: regular rhythm Heart sounds: Murmur heart sound present Extrem General: Yes full ROM Assessment and Plan Assessment & Plan (1) Hypertension: Code(s): I10 - Essential (primary) hypertension Plan: Continue losartan. Blood pressure goal is equal or less than 130/80. (2) Pure hypercholesterolemia: Code(s): E78.00 - Pure hypercholesterolemia, unspecified Plan: Start statins. Coding Level of Care Code Est Pt Level 3 (10529) Diagnoses Hypertension I10 Pure hypercholesterolemia E78.00 Time Spent (min) 19
[2022-12-03 10:45] VITALS: BP 110/70; BMI 25.6
== END 2022-12-03 11:13 | disposition home or self-care (01) ==
PROVIDERS: Visit Provider Internal Medicine
DX: I10 Essential (primary) hypertension (principal); E78.00 Pure hypercholesterolemia, unspecified
CPT/HCPCS: 99213

== ENCOUNTER 2023-01-07 09:22 | Outpatient (REF) | payer OTHER, SELFPAY ==
--- NOTE | ~2023-01-07 | US_ITS ---
EXAMINATION: US COMPLETE ABDOMEN WITH LIVER ELASTOGRAPHY CLINICAL INFORMATION: History of hepatitis C and liver fibrosis. Elevated alpha-fetoprotein COMPARISON: August 27, 2021 and MRI of April 26, 2018 TECHNIQUE: Real-time imaging of the abdominal viscera. Noninvasive ultrasound liver fibrosis assessment is performed using [employer] Elast[employer] point quantification shear wave elastography (2D-SWE) with a C5-2 MHz transducer. Multiple elastography samples are obtained. FINDINGS: PANCREAS: Normal. The visualized pancreatic head and body are normal in appearance. The remainder of the pancreas is obscured from visualization by the overlying bowel gas. ABDOMINAL AORTA: The mid and distal aspects obscured by overlying bowel gas. INFERIOR VENA CAVA: Visualized portions are normal. LIVER: Normal. The liver demonstrates normal size, contour and echogenicity. No focal lesion or intrahepatic biliary duct dilatation. The right lobe measures 11.0 cm in length. The left lobe measures 11.2 cm in length. Portal flow is hepatopedal Shear wave liver elastography median stiffness is 1.73 m/s (reference: normal median stiffness is 1.3 m/s or less). IQR/median stiffness to assess sampling precision is 0.1 (reference: good quality data set is IQR/median stiffness of 0.15 or less). GALLBLADDER: Normal. The gallbladder is physiologically distended without evidence of stones, sludge, polyps, wall thickening or pericholecystic fluid. COMMON BILE DUCT: Normal in caliber measuring 0.5 cm in diameter. RIGHT KIDNEY: Normal. No hydronephrosis. No renal calculi or focal parenchymal lesions. The kidney measures 9.3 cm in maximum dimension. LEFT KIDNEY: Normal. No hydronephrosis. No renal calculi or focal parenchymal lesions. The kidney measures 9.5 cm in maximum dimension. SPLEEN: Normal. The spleen measures 8.2 cm in maximum dimension. FREE FLUID: None. US/US abdomen comp w elastography IMPRESSION: 1. No hepatic lesion identified. 2. Liver elastography: Measurements are suggestive of compensated advanced chronic liver disease but need further test for confirmation. When compared with prior exam, there is a statistically significant decrease in liver stiffness (decrease at least 10%). REFERENCE: Society of Radiologists in Ultrasound Liver Stiffness Thresholds (2019): LIVER STIFFNESS THRESHOLDS: *Liver Stiffness equal or less than 1.3 m/s: High probability of being normal. *Liver Stiffness less than 1.7 m/s: In the absence of other known clinical signs, rules out compensated advanced chronic liver disease. *Liver Stiffness 1.7-2.1 m/s: Suggestive of compensated advanced chronic liver disease but need further test for confirmation. *Liver Stiffness over 2.1 m/s: Rules in compensated advanced chronic liver disease. *Liver Stiffness over 2.4 m/s: Suggestive of clinically significant portal hypertension. QUALITY OF DATA SET: *IQR/Median value equal or less than 0.15 implies a quality data set. *IQR/Median value over 0.15 implies a poor quality data set. SIGNIFICANT CHANGE FROM PRIOR EXAM: Significant change if liver stiffness measurement is 10% or greater from prior exam. OTHER CONSIDERATIONS: The stage of liver fibrosis may be overestimated in the setting of acute hepatitis, liver inflammation, elevated liver function tests, hepatic vascular congestion, obstructive cholestasis, non-fasting state, and infiltrative diseases such as amyloidosis and lymphoma. In some patients with NAFLD, the liver stiffness thresholds for compensated advanced chronic liver disease may be lower. In causes other than viral hepatitis and NAFLD, liver stiffness thresholds are not well established.
[2023-01-07 10:28] LABS: MANUAL DIFF FLAG NO
[2023-01-07 10:54] LABS: Basophils Percent Auto 0.3 % (0-2); Eosinophils Absolute Auto 0.1 X10*3/uL (0.0-0.4); Eosinophils Percent Auto 2.2 % (0-4); Hematocrit 40.7 % (42.0-52.0); Hemoglobin 13.7 g/dl (14.0-18.0); Imm Gran Abs Auto 0.01 X10*3/uL (0.00-0.03); Imm Gran Pct Auto 0.2 % (0.0-0.4); Lymphocytes Absolute Auto 2.2 X10*3/uL (1.2-4.9); Lymphocytes Percent Auto 34.5 % (20-40); Mean Corpuscular HGB Conc 33.7 g/dl (31.0-36.0); Mean Corpuscular Hemoglobin 29.1 pg (27.0-33.0); Mean Corpuscular Volume 86.6 fL (80.0-98.0); Mean Platelet Volume 10.5 fL (9.4-12.4); Monocytes Absolute Auto 0.6 X10*3/uL (0.1-1.2); Neutrophils Absolute Auto 3.5 x10*3/uL (2.0-8.3); Neutrophils Percent Auto 53.8 % (45-73); Platelet Count 219 X10*3/uL (160-400); Red Cell Distribution Width 12.3 % (11.0-16.0); White Blood Count 6.5 X10*3/uL (4.8-10.8)
[2023-01-07 11:01] LABS: INTERNATIONAL NORM RATIO 1.1 (0.9-1.1); Prothrombin Time 13.7 SEC (11.1-13.3)
[2023-01-07 11:21] LABS: Alanine Aminotransferase 22 U/L (0-40); Albumin Level 4.5 g/dL (3.5-5.0); Alkaline Phosphatase 48 U/L (39-117); Aspartate Amino Transferase 24 U/L (5-37); Bilirubin Direct 0.2 mg/dL (0.0-0.5); Bilirubin Total 0.8 mg/dL (0.0-1.0)
[2023-01-09 12:48] LABS: Alpha Fetoprotein 7.4 ng/mL (<6.1)
[2023-01-09 16:59] LABS: HCV Log PCR <1.18 NOT DETECTED Log IU/mL (NOT DETECTED); HepC Viral Load <15 NOT DETECTED IU/mL (NOT DETECTED)
[2023-01-13 15:34] LABS: FIB-ALT 20 U/L (9-46); FIB-Alpha-2-Macroglobulin 411 mg/dL (106-279); FIB-Apolipoprotein A1 163 mg/dL (94-176); FIB-GGT 30 U/L (3-70); FIB-Haptoglobin 66 mg/dL (43-212); FIB-Total Bilirubin 0.7 mg/dL (0.2-1.2); Liver Fibrosis Score 0.71; Liver Fibrosis Stage F3; Nec Inflam Act Grade A0; Nec Inflam Act Score 0.14
== END 2023-01-07 09:23 | disposition home or self-care (01) ==
LOC: HO.US 09:22
PROVIDERS: PCP Internal Medicine; Visit Provider Internal Medicine
DX: R77.2 Abnormality of alphafetoprotein (principal); K74.00 Hepatic fibrosis, unspecified; Z86.19 Personal history of other infectious and parasitic diseases
CPT/HCPCS: 36415; 76705; 76981; 80076; 81596; 82105; 85025; 85610; 87522

== ENCOUNTER 2023-03-14 16:57 | Emergency (ER) | payer OTHER, SELFPAY ==
[2023-03-14 17:51] VITALS: BP 136/77; PULSE 51; RESP 18; TEMP 36.3; O2SAT 100; BMI 25.4
--- NOTE | 2023-03-14 17:53 | ED.CHESTPAIN ---
HPI - Chest Pain General Chief Complaint: Chest Pain Stated Complaint: chest pain Time Seen by Provider: 03/14/23 17:53 Source: patient Mode of arrival: ambulatory Limitations: no limitations History of Present Illness HPI narrative: 62 yo male with PMH of HTN, hep C, VSD, migraines, HLD, here with c/o chest pain while watching TV - not while cleaning or doing activities, no radiation, no nausea, no dyspnea, occurred at rest lasted 30 min improved with belching and antacids. No hx of CAD, no hx of pain with walking or exercise MD complaint: chest pain Onset (ago): hour(s) (430pm) Timing of current episode: now resolved Prior episodes: No Onset: during rest Pain location: substernal Pain radiation: none Severity: moderate Quality: heaviness Relieving factors: nothing Exacerbating factors: nothing Treatment prior to arrival: none Related Data Home Medications Medication Instructions Recorded Confirmed losartan 25 mg tablet 25 mg PO DAILY 04/10/22 12/03/22 Previous Rx's Medication Instructions Recorded acetaminophen 650 mg 650 mg PO Q8H PRN pain 30 days #90 04/12/21 tablet,extended release tabs atorvastatin 20 mg tablet 20 mg PO BEDTIME 90 days #90 tabs 12/03/22 Allergies Allergy/AdvReac Type Severity Reaction Status Date / Time omeprazole Allergy Intermediate sob,tachyca Verified 03/14/23 17:51 rdia ribavirin Allergy Intermediate rash Verified 03/14/23 17:51 Review of Systems Review of Systems: Constitutional : No Weight loss, No Fever, No Chills ENT/Mouth : No sore throat, No Rhinorrhea Eyes: No Eye Pain, No Swelling Cardiovascular : pos Chest Pain, no SOB, no Dyspnea on Exertion, No Orthopnea, No Edema, No Palpitations Respiratory : No Cough, No Sputum Gastrointestinal : no Nausea, No Vomiting, No Diarrhea, No abdominal Pain, No Hematochezia, No Melena Genitourinary : No Dysuria, No Urinary Frequency Musculoskeletal : No joint pain, No Myalgias, No Joint Swelling Skin : No Skin Lesions, No rash Neuro : No Weakness, No Numbness, No Dizziness, No Headache Psych : No Anxiety/Panic, No Depression All other systems reviewed and are negative PMFSH Past Medical History Attestation statement: The following information was validated with the patient. Source: old records reviewed Onset Date is defined in the Problem List Problems that require an onset date and time if occurred within 24 hrs of arrival to the ED Aortic Dissection and Rupture; Neurologic impairment; Cardiopulmonary Arrest; Endotracheal Intubation; Insertion or Replacement of Mechanical Circulatory Assist Device Medical History Abdominal gas pain History of hepatitis C virus infection VSD (ventricular septal defect) Surgical History No pertinent past surgical history Family History Family History Father CVD (cardiovascular disease) Mother Hypertension Family/Other FH: mental illness Social History Social History Housing: Apartment Alcohol intake: former Year quit: 2009 Patient Tobacco Use Status: Former Tobacco user Tobacco use type: Cigarette e-Cigarette/Vaping Use: Never Used Second Hand Smoke Exposure: No Advance Directives: No Advance Directives Information Provided: Yes service: No Current occupational status: other Cognitive needs: No Hearing needs: No Vision needs: Yes (reading glasses) Physical Exam Vital Signs: Vital Signs: Last Vital Signs Temp 98.0 F 03/14/23 21:29 Pulse 42 L 03/14/23 21:29 Resp 12 03/14/23 21:29 BP 147/77 H 03/14/23 21:29 Pulse Ox 100 03/14/23 21:29 O2 Del Method Room Air 03/14/23 21:29 BMI result Body Mass Index 25.4 Appearance: Alert. Oriented X3. No acute distress. Eyes: Pupils equal, round and reactive to light. ENT: Pharynx normal. Neck: Normal inspection. Neck supple. CVS: Normal heart rate and rhythm. Pulses normal. Respiratory: No respiratory distress. Breath sounds normal. Abdomen: Soft and non-tender. Skin: Skin warm and dry. Normal skin color. Normal skin turgor. Extremities: No lower extremity edema. No calf ttp Neuro: Oriented X 3. No motor deficit. No sensory deficit. Course Course Course Narrative: This is a rapid medical exam. Deferred additional HPI, ROS, PE to primary provider. 62yo male here with chest pain since 4pm after cleaning his house. No other associated symptoms. Will obtain CXR, EKG. labs VSS Reevaluation(s) Reevaluation #1: trop flat x 2 Medical Decision Making Medical Decision Making [facility] Narrative: 62 yo male with PMH of HTN, hep C, VSD, migraines, HLD, here with c/o very atypical chest pain - no hx of exertional chest pain, normal distal pulses doubt dissection, no hypoxia / tachycardia signs of DVT to suggest VTE. His pain occurred at rest improved with belching - will obtain labs, troponin x 2 if negative can follow up with PCP Differential Diagnosis Differential Diagnoses: The differential diagnosis associated with the presentation includes atypical chest pain, MSK, GI related Admission/Observation Consideration of admission/observation: Escalation of care including admission/observation considered EKG, CXR, trop flat x 2 Lab Data [facility] Lab Attestation statement: I reviewed the patient's lab results. 03/14/23 18:32 03/14/23 18:32 Labs: Lab Results 03/14/23 03/14/23 Range/Units 18:32 21:35 WBC 7.7 (4.8-10.8) X10*3/uL RBC 4.72 (4.60-5.80) X10*6/uL Hgb 13.7 L (14.0-18.0) g/dl Hct 40.2 L (42.0-52.0) % MCV 85.2 (80.0-98.0) fL MCH 29.0 (27.0-33.0) pg MCHC 34.1 (31.0-36.0) g/dl RDW 12.0 (11.0-16.0) % Plt Count 217 (160-400) X10*3/uL MPV 10.4 (9.4-12.4) fL Immature Gran % (Auto) 0.3 (0.0-0.4) % Neut % (Auto) 58.9 (45-73) % Lymph % (Auto) 28.7 (20-40) % Woods % (Auto) 9.4 (2-11) % Eos % (Auto) 2.3 (0-4) % Baso % (Auto) 0.4 (0-2) % Lymph # (Auto) 2.2 (1.2-4.9) X10*3/uL Woods # (Auto) 0.7 (0.1-1.2) X10*3/uL Eos # (Auto) 0.2 (0.0-0.4) X10*3/uL Baso # (Auto) 0.0 (0.0-0.2) X10*3/uL Abs Immat Gran (auto) 0.02 (0.00-0.03) X10*3/uL Absolute Neuts (auto) 4.5 (2.0-8.3) x10*3/uL Absolute Nucleated RBC 0.000 (0.0-0.012) X10*3/uL Nucleated RBC % (auto) 0.0 (0.0-0.2) /100WBC PT 14.0 H (11.1-13.3) SEC INR 1.2 H (0.9-1.1) Sodium 139 (135-145) mmol/L Potassium 4.5 (3.3-5.1) mmol/L Chloride 102 (96-108) mmol/L Carbon Dioxide 27 (22-29) mmol/L Anion Gap 15 (12-20) BUN 14 (9-16) mg/dL Creatinine 0.92 (0.5-1.4) mg/dL Estim Creat Clear Calc 71.4 Estimated GFR > 60 Random Glucose 96 (60-115) mg/dL Calcium 10.3 H (8.4-10.2) mg/dL Total Bilirubin 0.6 (0.0-1.0) mg/dL Direct Bilirubin 0.2 (0.0-0.5) mg/dL AST 29 (5-37) U/L ALT 22 (0-40) U/L Alkaline Phosphatase 52 (39-117) U/L Troponin I High Sens < 2.7 < 2.7 (<3.5-35.0) ng/L Total Protein 8.5 H (6.5-8.0) g/dL Albumin 4.7 (3.5-5.0) g/dL Independent Interpretation I performed an independent interpretation of an: EKG and Plain X-Ray (normal ) Interpretation: Rate: 51 Rhythm: sinus bradycardia Ada: left Normal P waves. Normal VINOD. Normal QRS complex. ST T wave : no CLYDE, inverted t wave III qTC: 394 prior studies: no acute ischemia The study has been interpreted contemporaneously by me. . Radiology Impression Discussion of test interpretation with radiology: I have reviewed the radiologist's reading. External Record Review External record reviewed: Inpatient record Discharge Plan Discharge Clinical Impression: Atypical chest pain Patient Disposition: Home, Self-Care Instructions: Chest Pain (ED) Additional Instructions: chest xray, EKG, troponin normal x 2, return for worsening symptoms or any other concerns. follow up with your doctor for outpatient stress test in the next couple of weeks. radiograf?a de t?rax, electrocardiograma, troponina normal x 2, regreso si los s?ntomas empeoran o cualquier otra inquietud. taylor un seguimiento con flores m?dico para maged prueba de esfuerzo ambulatoria en las pr?ximas semanas Prescriptions: No Action acetaminophen 650 mg tablet extended release 650 mg PO Q8H PRN (Reason: pain) 30 Days Qty: 90 4RF losartan 25 mg tablet 25 mg PO DAILY atorvastatin 20 mg tablet 20 mg PO BEDTIME 90 Days Qty: 90 1RF Print Language: Turkmen
[2023-03-14 18:57] LABS: Alanine Aminotransferase 22 U/L (0-40); Albumin Level 4.7 g/dL (3.5-5.0); Alkaline Phosphatase 52 U/L (39-117); Anion Gap 15 (12-20); Aspartate Amino Transferase 29 U/L (5-37); Bilirubin Direct 0.2 mg/dL (0.0-0.5); Bilirubin Total 0.6 mg/dL (0.0-1.0); Blood Urea Nitrogen 14 mg/dL (9-16); Calcium 10.3 mg/dL (8.4-10.2); Carbon Dioxide 27 mmol/L (22-29); Chloride 102 mmol/L (96-108); Creatinine Clr Calc Pharmacy 71.4; Estimated Glomerular Filt Rate > 60; Glucose Random 96 mg/dL (60-115); Potassium 4.5 mmol/L (3.3-5.1); Sodium 139 mmol/L (135-145); Total Protein 8.5 g/dL (6.5-8.0)
[2023-03-14 21:29] VITALS: BP 147/77; PULSE 42; RESP 12; TEMP 36.7; O2SAT 100
[2023-03-14 22:00] LABS: Troponin-I High Sensitivity < 2.7 ng/L (<3.5-35.0)
[2023-03-14 22:27] VITALS: PULSE 51; RESP 18; TEMP 36.7; O2SAT 98
== END 2023-03-14 22:28 | disposition home or self-care (01) ==
PROVIDERS: Nurse Practitioner Family; Emergency Provider Emergency Medicine; PCP Internal Medicine
DX: R07.89 Other chest pain (principal); I10 Essential (primary) hypertension; E78.5 Hyperlipidemia, unspecified; Z79.899 Other long term (current) drug therapy; Z79.02 Long term (current) use of antithrombotics/antiplatelets
CPT/HCPCS: 36415; 71046; 80048; 80076; 84484; 85025; 85610; 93005; 99283; 99284

== ENCOUNTER → 2023-03-14 17:04 | Outpatient (BNV) | payer OTHER, SELFPAY | PROVIDERS: Emergency Provider Emergency Medicine; PCP Internal Medicine; Visit Provider Internal Medicine Cardiovascular Disease | DX: I49.1 Atrial premature depolarization (principal) | CPT/HCPCS: 93010 ==

== ENCOUNTER 2023-08-19 11:01 | Outpatient (AMB) | payer OTHER, SELFPAY ==
--- NOTE | 2023-08-19 11:03 | MHC.PC.OV ---
Vital Signs 08/19/23 11:04 Height 5 ft 4 in Weight 143 lb BMI 24.5 BP 110/80 Blood Pressure Location Lt brachial Position Sitting Intake Visit Reasons: Annual Exam 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 for a physical exam Director Of Outpatient Services Required: No Accompanied by: Self / Same As Patient Allergies omeprazole Allergy (Intermediate, Verified 08/19/23 11:13) sob,tachycardia ribavirin Allergy (Intermediate, Verified 08/19/23 11:13) rash Medication List - Last Reconciled 08/19/23 by Glory Saeed MD atorvastatin 20 mg PO BEDTIME 90 days losartan 25 mg PO DAILY Tobacco use date assessed: 08/19/23 Dental Screening Dental Screen Date: 08/19/23 Did you have a dental visit in the last 12 months?: Yes Did you have a dental problem in the last 6 months where you did not have access to dental care?: No Was dental information given to patient?: Patient has dentist HPI HPI Comments History of Present Illness Details This is a 62-year-old male that comes for his physical exam. Last colonoscopy was 2014 and was normal. No chest pain or shortness on breath. Has not take his blood pressure medication in about 2 weeks and this is why I will discontinue losartan. He admits not being compliant with atorvastatin and lipid panel will be ordered. [facility] Medical History Abdominal gas pain History of hepatitis C virus infection VSD (ventricular septal defect) Surgical History No pertinent past surgical history Family History Father CVD (cardiovascular disease) Mother Hypertension Family/Other FH: mental illness Social History Housing: Apartment Alcohol intake: former Year quit: 2009 Patient Tobacco Use Status: Former Tobacco user Tobacco use type: Cigarette e-Cigarette/Vaping Use: Never Used Second Hand Smoke Exposure: No service: No Current occupational status: other Cognitive needs: No Hearing needs: No Vision needs: Yes (reading glasses) Questionnaire PHQ-9 Over the last 2 weeks, how often have you been bothered by any of the following problems? 1. Little interest or pleasure in doing things: not at all 2. Feeling down, depressed, or hopeless: not at all 3. Trouble falling or staying asleep, or sleeping too much: not at all 4. Feeling tired or having little energy: not at all 5. Poor appetite or overeating: not at all 6. Feeling bad about yourself - or that you are a failure or have let yourself or your family down: not at all 7. Trouble concentrating on things, such as reading the newspaper or watching television: not at all 8. Moving or speaking so slowly that other people could have noticed. Or the opposite - being so fidgety or restless that you have been moving around a lot more than usual: not at all 9. Thoughts that you would be better off or of hurting yourself in some way: not at all Total score: 0 Depression Screening Interpretation: Negative Depression Screening Done: Yes 96275 - PHQ-9 Billing: Yes Source: Developed by Drs. Jd Smith, Felicitas Cosme, Leonardo Rogers and colleagues, with an educational espinoza from [employer]. Thrive Questionnaire Date Thrive assessed: 08/19/23 I am a: Patient What is your living situation today?: I have a steady place to live Within the past 12 months, did the food you bought not last and you didn't have the money to get more?: Never true Within the past 12 months, did you worry whether your food would run out before you got money to buy more?: Never true Do you have trouble paying for medicines?: No Do you have trouble getting transportation to medical appointments?: No Do you have trouble paying your heating and electricity bill?: No Do you have trouble taking care of your child, family member or friend?: No Do you have trouble with day-to-day activities such as bathing, preparing meals, shopping, managing finances, etc.?: No Are you currently unemployed and looking for a job?: No Are you interested in more education?: No Please select the resources that you would like help with: None Currently or been in a relationship where the following occur: no concerns reported THRIVE Score: 0 AUDIT C Alcohol Use Questionnaire (AUDIT-C) 1. How often do you have a drink containing alcohol?: Never Total Score: 0 Score Reviewed/Action Taken: No KATEY-7 AMB Questionnaire KATEY-7 Date KATEY - 7 assessed: 08/19/23 Feeling nervous, anxious, or on edge: 0 = Not at all Not being able to stop or control worryin = Not at all Worrying too much about different things: 0 = Not at all Trouble relaxin = Not at all Being so restless that it is hard to sit still: 0 = Not at all Becoming easily annoyed or irritable: 0 = Not at all Feeling afraid as if something awful might happen: 0 = Not at all Total KATEY-7 score (0-4 normal; 5-9 mild; 10-14 moderate; 15-21 severe): 0 Source: Developed by Drs. Jd Smith, Felicitas Cosme, Leonardo Rogers and colleagues, with an educational espinoza from [employer]. KATEY-7 Assessment Billing KATEY-7 Assessment Tool: KATEY-7 Assessment 49381 Review of Systems Const All systems reviewed & are unremarkable except as noted in HPI and below Eyes Reports no additional complaints, Denies change in vision and Denies other visual disturbances Card Denies chest pain at rest, Denies chest pain with activity, Denies edema, Denies irregular heart rhythm, Denies claudication, Denies dyspnea, Denies dyspnea on exertion, Denies orthopnea, Denies paroxysmal nocturnal dyspnea and Denies slow heart rate Resp Denies cough, Denies dyspnea and Denies dyspnea on exertion GI Denies abdominal pain, Denies change in bowel habits, Denies excessive flatus, Denies nausea and Denies vomiting Denies urinary hesitancy, Denies urinary incontinence and Denies urinary urgency Physical exam (Primary Care) Vital Signs: Last Vital Signs BP 110/80 08/19/23 11:04 BMI result Body Mass Index 24.5 Tobacco/Smoking Status: Tobacco use Status Tobacco use date assessed 08/19/23 08/19/23 11:09 Patient Tobacco Use Status Former Tobacco user 08/19/23 11:09 Tobacco use type Cigarette 08/19/23 11:09 e-Cigarette/Vaping Use Never Used 08/19/23 11:09 PHQ-9: PHQ-9 Score PHQ-9: Total score 0 08/19/23 11:09 Depression Screening Interpretation: Negative Thrive Assessment: Date of Thrive Assessment Date Thrive assessed 08/19/23 08/19/23 11:09 Currently or been in a relationship where the following occur: no concerns reported Const Orientation/consciousness: patient oriented x3 HENAZ Head: Yes normal to inspection, Yes normocephalic and Yes atraumatic Ears: external ears normal Eyes General: appearance normal, both eyes and all related structures Eyelids: Yes eyelids normal Conjunctivae: conjunctivae normal Neck Neck: Yes normal visual inspection and Yes supple Resp Effort & Inspection: normal respiratory effort Auscultation: clear to auscultation bilaterally Cardio Jugular venous distension: no JVD Rate: regular rate Rhythm: regular rhythm Heart sounds: S1 normal heart sound present and S2 normal heart sound present GI Inspection: Yes normal to inspection Palpation (GI): Soft to palpation and nontender Auscultation: normal bowel sounds Skin General skin exam: no rashes or lesions noted Neuro General: patient oriented x3 and no focal motor deficits Extrem General: Yes full ROM Psych Appearance: grossly normal Assessment and Plan Assessment & Plan (1) Encounter for physical examination: Comment: UTD eye and dental Code(s): Z00.00 - Encounter for general adult medical examination without abnormal findings Plan: Repeat in a year. Orders: Orders Comprehensive [place]. Panel Fast Today Z00.00 - Encounter for general adult medical examination without abnormal findings Lipid Panel Today E78.5 - Hyperlipidemia, unspecified PSA,Total (Free>4and<10) Today Z12.5 - Encounter for screening for malignant neoplasm of prostate Coding Level of Care Code Est Pt Prev Care 40-64y(17654) Diagnoses Encounter for physical examination Z00.00 Additional Codes KATEY-7 Assessment Billing - KATEY-7 Assessment Tool: KATEY-7 Assessment 67871 ([id number]) Time Spent (min) 31
[2023-08-19 11:04] VITALS: BP 110/80; BMI 24.5
== END 2023-08-19 11:26 | disposition home or self-care (01) ==
PROVIDERS: PCP Internal Medicine; Visit Provider Internal Medicine
DX: Z00.00 Encounter for general adult medical examination without abnormal findings (principal)
CPT/HCPCS: 99396

== ENCOUNTER 2023-12-14 08:18 | Outpatient (REF) | payer OTHER, SELFPAY ==
--- NOTE | ~2023-12-14 | US_ITS ---
EXAMINATION: US ABDOMEN LIMITED WITH LIVER ELASTOGRAPHY CLINICAL INFORMATION: History of hepatitis C. COMPARISON: January 07, 2023. TECHNIQUE: Real-time imaging of the abdominal viscera. Noninvasive ultrasound liver fibrosis assessment is performed using a Virtual View App Doreen to determine point quantification shear wave elastography (pSWE) with a 5 MHz transducer. Multiple elastography samples are obtained. FINDINGS: PANCREAS: Head and body appear unremarkable. Tail not visualized. LIVER: Liver appears unremarkable in size, contour and echogenicity. No focal lesion or intrahepatic biliary duct dilatation identified. The right lobe measures 11.9 cm in length. The left lobe measures 11.0 cm in length. Hepatopedal portal flow. Shear wave elastography provides a median stiffness of 1.71 m/s (reference: normal median stiffness is 0.81 - 1.22 m/s). On January 07, 2023 this measured 1.73. The IQR/median stiffness to assess sampling precision is 0.28 (reference: optimal IQR/median stiffness is under 0.3). On January 07, 2023 this measured 0.10. GALLBLADDER: The gallbladder is physiologically distended without evidence of stones, sludge, polyps, wall thickening or pericholecystic fluid. Technologist reports a negative sonographic Adams's sign. COMMON BILE DUCT: Normal in caliber measuring 0.4 cm in diameter. RIGHT KIDNEY: No hydronephrosis. No renal calculi or focal parenchymal lesion identified. The kidney measures 9.6 cm in maximum dimension. FREE FLUID: None. US/US abdomen das w elastography IMPRESSION: Elastography: Liver elastography measurements are consistent with a high risk for clinically significant liver fibrosis (METAVIR Stage F3-F4). No statistically significant change compared with January 07, 2023, although comparison may be imprecise due to the fact that different brands of ultrasound machines were used for these studies. Electronically signed by: Gianni Harrison MD 12/14/2023 11:49 AM EDT
[2023-12-14 08:31] LABS: MANUAL DIFF FLAG NO
[2023-12-14 09:07] LABS: Basophils Percent Auto 0.5 % (0-2); Eosinophils Absolute Auto 0.2 X10*3/uL (0.0-0.4); Eosinophils Percent Auto 2.1 % (0-4); Hematocrit 44.3 % (42.0-52.0); Hemoglobin 14.7 g/dl (14.0-18.0); Imm Gran Abs Auto 0.02 X10*3/uL (0.00-0.03); Imm Gran Pct Auto 0.3 % (0.0-0.4); Lymphocytes Absolute Auto 2.3 X10*3/uL (1.2-4.9); Lymphocytes Percent Auto 30.2 % (20-40); Mean Corpuscular HGB Conc 33.2 g/dl (31.0-36.0); Mean Corpuscular Hemoglobin 29.5 pg (27.0-33.0); Mean Corpuscular Volume 88.8 fL (80.0-98.0); Mean Platelet Volume 10.6 fL (9.4-12.4); Monocytes Absolute Auto 0.7 X10*3/uL (0.1-1.2); Monocytes Percent Auto 8.7 % (2-11); Neutrophils Absolute Auto 4.4 x10*3/uL (2.0-8.3); Neutrophils Percent Auto 58.2 % (45-73); Platelet Count 230 X10*3/uL (160-400); Red Blood Count 4.99 X10*6/uL (4.60-5.80); Red Cell Distribution Width 12.4 % (11.0-16.0); White Blood Count 7.5 X10*3/uL (4.8-10.8)
[2023-12-14 09:17] LABS: INTERNATIONAL NORM RATIO 1.1 (0.9-1.1); Prothrombin Time 12.5 SEC (10.9-12.4)
[2023-12-14 09:54] LABS: Alanine Aminotransferase 19 U/L (0-40); Albumin Level 4.8 g/dL (3.5-5.0); Alkaline Phosphatase 44 U/L (39-117); Aspartate Amino Transferase 25 U/L (5-37); Bilirubin Direct 0.2 mg/dL (0.0-0.5); Bilirubin Total 0.6 mg/dL (0.0-1.0); Total Protein 8.5 g/dL (6.5-8.0)
[2023-12-16 11:03] LABS: Alpha Fetoprotein 8.2 ng/mL (<6.1)
[2023-12-17 01:39] LABS: HCV Log PCR <1.18 NOT DETECTED Log IU/mL (NOT DETECTED); HepC Viral Load <15 NOT DETECTED IU/mL (NOT DETECTED)
[2023-12-21 14:38] LABS: FIB-ALT 16 U/L (9-46); FIB-Alpha-2-Macroglobulin 390 mg/dL (106-279); FIB-Apolipoprotein A1 205 mg/dL (94-176); FIB-GGT 30 U/L (3-70); FIB-Haptoglobin 55 mg/dL (43-212); FIB-Total Bilirubin 0.6 mg/dL (0.2-1.2); Liver Fibrosis Score 0.57; Liver Fibrosis Stage F2; Nec Inflam Act Grade A0; Nec Inflam Act Score 0.08; Reference ID 5150793
== END 2023-12-14 08:19 | disposition home or self-care (01) ==
LOC: HO.US 08:18
PROVIDERS: PCP Internal Medicine; Visit Provider Internal Medicine
DX: K74.00 Hepatic fibrosis, unspecified (principal); Z86.19 Personal history of other infectious and parasitic diseases
CPT/HCPCS: 36415; 76705; 76981; 80076; 81596; 82105; 85025; 85610; 87522

== ENCOUNTER 2024-02-24 09:50 | Outpatient (AMB) | payer OTHER, SELFPAY ==
--- NOTE | 2024-02-24 09:51 | MHC.PC.OV ---
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 The blood pressure readings have been elevated, with a recent measurement of 140/82 mmHg, which necessitates monitoring. The patient reports historically being prescribed medication for hypertension, although he has not used them recently. He has been advised to check his blood pressure at home every other day for the next three weeks. The patient has a history of hypercholesterolemia, possibly exacerbated by his dietary intake, including frequent consumption of chocolate and egg yolks. Dietary adjustments have been suggested, such as reducing egg yolk consumption. Laboratory tests have previously indicated high cholesterol levels. Previously, the patient had Hepatitis C, but current viral load assessments show low levels, suggesting control of the disease. The patient monitors liver enzymes under the care of a director of recruitment, and there are no active symptoms indicating liver dysfunction. Gastroesophageal reflux disease is noted but currently well-managed without medication. GERD has also stable with diet. [facility] Medical History (Updated 02/24/24 @ 11:02 by Glory Saeed MD) Abdominal gas pain History of hepatitis C virus infection VSD (ventricular septal defect) Surgical History No pertinent past surgical history Family History Father CVD (cardiovascular disease) Mother Hypertension Family/Other FH: mental illness Social History Housing: Apartment Alcohol intake: former Year quit: 2009 Patient Tobacco Use Status: Former Tobacco user Tobacco use type: Cigarette e-Cigarette/Vaping Use: Never Used Second Hand Smoke Exposure: No service: No Current occupational status: other Cognitive needs: No Hearing needs: No Vision needs: Yes (reading glasses) Questionnaire Thrive Questionnaire Date Thrive assessed: 08/19/23 KATEY-7 AMB Questionnaire KATEY-7 Date KATEY - 7 assessed: 08/19/23 Source: Developed by Drs. Jd Smith, Felicitas Cosme, Leonardo Rogers and colleagues, with an educational espinoza from [employer]. Review of Systems Const Details: - Cardiovascular: Denies chest pain. - Respiratory: Denies shortness of breath. - Gastrointestinal: Denies acid reflux or heartburn, well-controlled symptoms without medication. Physical exam (Primary Care) Vital Signs: Last Vital Signs BP 140/80 H 02/24/24 09:52 BMI result Body Mass Index 24.7 Tobacco/Smoking Status: Tobacco use Status Tobacco use date assessed 08/19/23 02/24/24 09:54 Patient Tobacco Use Status Former Tobacco user 02/24/24 09:54 Tobacco use type Cigarette 02/24/24 09:54 e-Cigarette/Vaping Use Never Used 02/24/24 09:54 Thrive Assessment: Date of Thrive Assessment Date Thrive assessed 08/19/23 02/24/24 09:54 Const Other: General: No confusion Respiratory: Normal respiratory effort, clear to auscultation bilaterally Cardiovascular: No jugular venous distension, regular rate, regular rhythm, systolic murmur GI: Normal to inspection, Soft to palpation and nontender, normal bowel sounds Neurology: Patient oriented x3, no focal motor deficits and No confusion Extremities: Full ROM Psychology: Grossly normal Office Procedures Flu Questionnaire Does the patient have a severe egg allergy?: No Immunizations Fluarix Triv [id number] (PF) 45 mcg (15 mcg x 3)/0.5 mL IM syringe Performing Provider: Glory Saeed MD [facility] [place] Documented (not given) by: EDWARD Ortiz on 02/24/24 09:58 Reason Not Given: Patient Refused Coding Level of Care Code Est Pt Level 4 (06347) Complex EM visit Add On G2211 Diagnoses Hypertension I10 Pure hypercholesterolemia E78.00 Chronic GERD K21.9 Transaminitis R74.01 Time Spent (min) 23 Assessment & Plan Assessment & Plan (1) Hypertension: Code(s): I10 - Essential (primary) hypertension Category: Medical (2) Pure hypercholesterolemia: Code(s): E78.00 - Pure hypercholesterolemia, unspecified Category: Medical (3) Chronic GERD: Code(s): K21.9 - Gastro-esophageal reflux disease without esophagitis Category: Medical (4) Transaminitis: Code(s): R74.01 - Elevation of levels of liver transaminase levels Category: Medical Plan - Continue to monitor blood pressure at home every other day and record readings for review in three weeks. - Consider initiating antihypertensive medication if the blood pressure remains elevated after monitoring period. - Dietary adjustments advised to manage cholesterol levels. Focus on reducing intake of chocolate and egg yolks. - Plan for blood work in six months to reassess cholesterol levels and liver function. - Continue monitoring for Hepatitis C as needed, but no current treatment necessary. Patient was informed and verbally consented to the use of an ambient scribe for clinic note documentation during this visit. I discussed with the patient the importance of monitoring his blood pressure regularly given the slightly elevated readings. We agreed on a three-week home monitoring plan to assess the need for antihypertensive medication. We also reviewed his dietary habits impacting his cholesterol levels and recommended reducing chocolate and egg yolk consumption. The patient understood the role of dietary changes in managing hypercholesterolemia and agreed to these modifications. I explained the potential need for medication if lifestyle changes do not suffice in controlling his cholesterol and blood pressure. We concurred on a follow-up for bloodwork in six months to check cholesterol levels and ensure liver function remains stable under the context of his previous Hepatitis C diagnosis. Orders: Orders Comprehensive [place]. Panel Fast 6 Months E78.00 - Pure hypercholesterolemia, unspecified Influenza [id number] Immunization Today Z23 - Encounter for immunization Lipid Panel 6 Months E78.5 - Hyperlipidemia, unspecified Patient Instructions: - Check and record blood pressure at home every other day for three weeks. - Reduce consumption of foods high in cholesterol, particularly chocolate and egg yolks. - Plan for blood tests in six months to reassess cholesterol and liver enzyme levels. - Return for follow-up to discuss blood pressure and cholesterol management based on home monitoring results.
[2024-02-24 09:52] VITALS: BP 140/80; BMI 24.7
--- OUTSIDE RECORDS SUMMARY | 2024-02-24 09:53 | XMS_ITS | Patient Health Record ---
Author Organization [facility] Address [address] [place] [address] Care Team Providers Care Air Liaison And Special Staff Name Role Phone Glory Hudson Primary Care Provider UnavailJd Cooley Unavailable [phone] ALLERGIES No Known Allergies RESULTS Component Value Reference Range Notes Alpha Fetoprotein (Not yet r eviewed by provider) Interpretation: Performing Lab:[facility], [address] [place] [phone] Notes/Report: Alpha Fetoprotein 8.2 <6.1 ng/mL This test was performed using the Jennifer Christian chemiluminescent method. Values obtained from different assay methods cannot be used interchangeably. AFP levels, regardless of value, should not be interpreted as absolute evidence of the presence or absence of disease. THIS TEST WAS PERFORMED AT: [facility] [address] [place] [phone] SANDI MERRILL MD Complete Blood Count Auto Di ff Reviewed date:12/14/2023 11:56:20 PM Interpretation: Performing Lab:[facility], [address] [place] [phone] Notes/Report: White Blood Count 7.5 4.8-10.8 X10*3/uL Red Blood Count 4.99 4.60-5.80 X10*6/uL Hemoglobin 14.7 14.0-18.0 g/dl Hematocrit 44.3 42.0-52.0 % Mean Corpuscular Volume 88.8 80.0-98.0 fL Mean Corpuscular Hemoglobin 29.5 27.0-33.0 pg Mean Corpuscular HGB Conc 33.2 31.0-36.0 g/dl Red Cell Distribution Width 12.4 11.0-16.0 % Platelet Count 230 160-400 X10*3/uL Mean Platelet Volume 10.6 9.4-12.4 fL Neutrophils Percent Auto 58.2 45-73 % Imm Gran Pct Auto 0.3 0.0-0.4 % Lymphocytes Percent Auto 30.2 20-40 % Monocytes Percent Auto 8.7 2-11 % Eosinophils Percent Auto 2.1 0-4 % Basophils Percent Auto 0.5 0-2 % NRBC Pct Auto 0.0 0.0-0.2 /100WBC Neutrophils Absolute Auto 4.4 2.0-8.3 x10*3/u L Imm Gran Abs Auto 0.02 0.00-0.03 X10*3/uL Lymphocytes Absolute Auto 2.3 1.2-4.9 X10*3/u L Monocytes Absolute Auto 0.7 0.1-1.2 X10*3/uL Eosinophils Absolute Auto 0.2 0.0-0.4 X10*3/u L Basophils Absolute Auto 0.0 0.0-0.2 X10*3/uL NRBC Abs Auto 0.000 0.0-0.012 X10*3/uL Prothrombin Time INR Reviewed date:12/14/2023 11:56:29 PM Interpretation: Performing Lab:[address] [phone] Notes/Report: Prothrombin Time 12.5 10.9-12.4 SEC INTERNATIONAL NORM RATIO 1.1 0.9-1.1 INTERNATIONAL NORMALIZED RATIO (INR) REFERENCE RANGES Reference Range For patients not on anticoagulant therapy: 0.9 - 1.1 INR ranges for oral anticoagulant therapy: For prevention and treatment of venous thrombosis and pulmonary embolism: 2.0 - 3.0 For acute myocardial infarction with aspirin therapy: 2.0 - 3.0 For acute myocardial infarction without aspirin therapy: 3.0 - 4.0 For patients with mechanical prosthetic heart valves: 2.5 - 3.5 Liver Panel Reviewed date:12/14/2023 11:57:10 PM Interpretation: Performing Lab:[address] [phone] Notes/Report: Bilirubin Total 0.6 0.0-1.0 mg/dL Bilirubin Direct 0.2 0.0-0.5 mg/dL Aspartate Amino Transferase 25 5-37 U/L Alanine Aminotransferase 19 0-40 U/L Total Protein 8.5 6.5-8.0 g/dL Albumin Level 4.8 3.5-5.0 g/dL Alkaline Phosphatase 44 39-117 U/L Liver Fibrosis Pnl Reviewed date:12/21/2023 05:49:30 PM Interpretation: Performing Lab:[facility], [address] [place] [phone] Notes/Report: Liver Fibrosis Score 0.57 Liver Fibrosis Stage F2 Liver Fibrosis Interpretation SEE NOTE moderate fibrosis Fibro Test Score (f) Metavir Score f>=0 and f<=0.21 : F0 (no fibrosis) f>0.21 and f<=0.27 : F0-F1 (no fibrosis) f>0.27 and f<=0.31 : F1 (minimal fibrosis) f>0.31 and f<=0.48 : F1-F2 (minimal fibrosis) f>0.48 and f<=0.58 : F2 (moderate fibrosis) f>0.58 and f<=0.72 : F3 (advanced fibrosis) f>0.72 and f<=0.74 : F3-F4 (advanced fibrosis) f>0.74 and f<=1.00 : F4 (severe fibrosis) Nec Inflam Act Score 0.08 Nec Inflam Act Grade A0 Nec Inflam Act Interpretation SEE NOTE no activity ActiTest Score (a) Metavir Score a>=0 and a<=0.17 : A0 (no activity) a>0.17 and a<=0.29 : A0-A1 (no activity) a>0.29 and a<=0.36 : A1 (minimal activity) a>0.36 and a<=0.52 : A1-A2 (minimal activity) a>0.52 and a<=0.60 : A2 (significant activity) a>0.60 and a<=0.62 : A2-A3 (significant activity) a>0.62 and a<=1.00 : A3 (severe activity) EOK-Kxgqd-2-Macroglobulin 390 106-279 mg/dL FIB-Haptoglobin 55 43-212 mg/dL FIB-Apolipoprotein A1 205 94-176 mg/dL FIB-Total Bilirubin 0.6 0.2-1.2 mg/dL FIB-GGT 30 3-70 U/L FIB-ALT 16 9-46 U/L Reference ID [id number] Footnote SEE NOTE The reliability of results is dependent on compliance with the preanalytical and analytical conditions recommended by [employer]. The tests have to be deferred for: acute hemolysis, acute hepatitis, acute inflammation, extra hepatic cholestasis. The advice of a specialist should be sought for interpretation in chronic hemolysis and Gilbert's syndrome. The test interpretation is not validated in liver transplant patients. Isolated extreme values of one of the components should lead to caution in interpreting the results. In case of discordance between a biopsy result and a test, it is recommended to seek the advice of a specialist. The causes of these discordances could be due to a flaw of the test or to a flaw in the biopsy: i.e. a liver biopsy has a 33% variability rate for one fibrosis stage. FibroTest is interpretable for chronic hepatitis B and C, alcoholic and non alcoholic steatosis. ActiTest is interpretable for chronic hepatitis B and C. The performance characteristics have been determined by [facility]. It has not been cleared or approved by the U.S. Food and Drug Administration. Performance characteristics refer to the analytical performance of the test. [employer], [employer], the associated logo, [employer] and all associated [employer]Wave morel are the registered trademarks of [employer]. All third libertarian morel - (R) and (TM) - are the property of their respective owners. (C) 6131-1055 [employer]. All rights reserved. THIS TEST WAS PERFORMED AT: [facility] [address] [place] [address] ANGELINE FLYNN MD,PHD,YING Hep C Viral Load Reviewed date:12/28/2023 11:11:01 PM Interpretation: Performing Lab:[facility], [address] [place] [phone] Notes/Report: HepC Viral Load <15 NOT DETECTED NOT DETECTED IU/mL HCV Log PCR <1.18 NOT DETECTED NOT DETECTED Log IU/mL For additional information, please refer to http://education.Sponge/faq/FAQ22v 1 (This link is being provided for informational/ educational purposes only.) THIS TEST WAS PERFORMED AT: [facility] [address] [place] [phone] SANDI MERRILL MD US abdomen das w elastograph y Reviewed date:12/14/2023 11:55:50 PM Interpretation: Performing Lab: Notes/Report: [address] [address] Ultrasound Report Signed Patient: Madelyn Cummings MR#: [id number] 6 : 1960 Acct:[id number] Age/Sex: 63 / M ADM Date: 12/14/23 Loc: HO.US Attending Dr: Jd Fraga MD Ordering Physician: Jd Fraga MD Date of Service: 12/14/23 Procedure(s): US abdomen das w elastography Accession Number(s): [id number] cc: Glory Hudson MD; Jd Fraga MD EXAMINATION: US ABDOMEN LIMITED WITH LIVER ELASTOGRAPHY CLINICAL INFORMATION: History of hepatitis C. COMPARISON: January 07, 2023. TECHNIQUE: Real-time imaging of the abdominal viscera. Noninvasive ultrasound liver fibrosis assessment is performed using a Giveit100 Doreen to determine point quantification shear wave elastography (pSWE) with a 5 MHz transducer. Multiple elastography samples are obtained. FINDINGS: PANCREAS: Head and body appear unremarkable. Tail not visualized. LIVER: Liver appears unremarkable in size, contour and echogenicity. No focal lesion or intrahepatic biliary duct dilatation identified. The right lobe measures 11.9 cm in length. The left lobe measures 11.0 cm in length. Hepatopedal portal flow. Shear wave elastography provides a median stiffness of 1.71 m/s (reference: normal median stiffness is 0.81 - 1.22 m/s). On January 07, 2023 this measured 1.73. The IQR/median stiffness to assess sampling precision is 0.28 (reference: optimal IQR/median stiffness is under 0.3). On January 07, 2023 this measured 0.10. GALLBLADDER: The gallbladder is physiologically distended without evidence of stones, sludge, polyps, wall thickening or pericholecystic fluid. Technologist reports a negative sonographic Adams's sign. COMMON BILE DUCT: Normal in caliber measuring 0.4 cm in diameter. RIGHT KIDNEY: No hydronephrosis. No renal calculi or focal parenchymal lesion identified. The kidney measures 9.6 cm in maximum dimension. FREE FLUID: None. US/US abdomen das w elastography IMPRESSION: Elastography: Liver elastography measurements are consistent with a high risk for clinically significant liver fibrosis (METAVIR Stage F3-F4). No statistically significant change compared with January 07, 2023, although comparison may be imprecise due to the fact that different brands of ultrasound machines were used for these studies. Electronically signed by: Gianni Harrison MD 12/14/2023 11:49 AM EDT RP Dictated By: Gianni Harrison Signed By: <Electronically signed by Gianni Harrison in OV> 12/14/23 1149 DD/ TD/TT: 12/14/23925 Contract Post Office Clerk: REASON FOR REFERRAL No Information MEDICATIONS Medication SIG (Take, Route, Frequency, Duration) Notes Start Date End Date Status Losartan Potassium 25 MG Oral for 90 Active Acetaminophen ER 650 MG Oral for 30 PRN Active Multivitamin Adult Orally A ctive Simethicone 125 MG 1 tablet after meals and at bedtime as needed Orally Four times a day Not-Taking SUMAtriptan Succinate 25 MG TAKE 1 TABLET BY MOUTH EVERY 2-4 HOURS NEEDED FOR MIGRAINE MAX 8 TABLETS DAILY Oral for 30 Not-Taking Omeprazole 20 MG 1 capsule Orally Onc e a day for 30 Not-Taking Atorvastatin Calcium 20 MG TAKE 1 TABLET BY MOUTH EVERY DAY AT BEDTIME Oral for 90 Active Ibuprofen 800 MG Orally Not -Taking IMMUNIZATIONS Vaccine Route Administration Date Status Comme nts Influenza Unknown 11/07/2017 Administered Influenza Unknown 11/07/2020 Administered Influenza Unknown 12/02/2022 Refused SOCIAL HISTORY Sex Assigned At : Social History Observation Description Sex Assigned At Unknown PROBLEMS Problem Type ICD Code Onset Dates Problem Status W/U Status Risk SNOMED Code Notes Problem Chronic hepatitis C without hepatic coma (B18.2) Active confirmed 293245692 Problem Elevated liver enzymes (R74.8) Active confirmed 011161151 Problem Gastroesophageal reflux disease, esophagitis presence not specified (K21.9) Active confirmed 647009833 Problem Elevated alpha fetoprotein (R77.2) Active confirmed 595843674 Problem History of hepatitis C (Z86.19) Active confirmed 64258621380837 Problem Liver fibrosis (K74.0) Active confirmed 91115816 Problem Liver fibrosis (K74.00) Active confirmed 16911253 VITAL SIGNS Blood pressure diastolic 00 mm Hg 12/03/2023 Height 65 in 12/03/2023 Blood pressure systolic 00 mm Hg 12/03/2023 Weight 145 lbs 12/03/2023 BMI 24.13 kg/m2 12/03/2023 Encounters Encounter Location Date Provider Diagnosis [facility] [address] [place] [address] 12/03/2023 Jd Fraga Liver fibrosis K74.00 and History of hepatitis C Z86.19 ASSESSMENTS Encounter Date Diagnosis Assessment Notes Treatment Notes Treatment Clinical Notes 12/03/2023 History of hepatitis C (ICD-10 - Z86.19) 12/03/2023 Liver fibrosis (ICD-10 - K74.00) 12/03/2023 Other We will schedul e your colonoscopy when I see you in 1 year. PLAN OF TREATMENT Pending Test Test Name Order Date LIVER PROFILE 12/03/2023 LIVER PROFILE 07/02/2021 LIVER PROFILE 03/10/2017 LIVER PROFILE 05/06/2016 LIVER PROFILE 06/02/2017 LIVER PROFILE 12/02/2022 LIVER PROFILE 03/16/2015 LIVER PROFILE 04/13/2017 CBC w DIFF 04/13/2017 CBC w DIFF 12/02/2016 CBC w DIFF 12/03/2023 CBC w DIFF 07/02/2021 CBC w DIFF 03/10/2017 CBC w DIFF 06/02/2017 CBC w DIFF 12/02/2022 CBC w DIFF 03/16/2015 PROTHROMBIN TIME (PT, INR) 07/02/2021 ALPHA-FETOPROTEIN,TUMOR MARKER 4 ALPHA-FETOPROTEIN,TUMOR MARKER 2 ALPHA-FETOPROTEIN,TUMOR MARKER 3 OTHER REF LAB TEST - MISC 06/19/2016 HEPATITIS C VIRAL LOAD 03/16/2015 HEPATITIS C VIRAL LOAD 12/02/2022 HEPATITIS C VIRAL LOAD 04/13/2017 HEPATITIS C VIRAL LOAD 05/06/2016 HEPATITIS C VIRAL LOAD 12/03/2023 HEPATITIS C VIRAL LOAD 03/10/2017 HEPATITIS C VIRAL LOAD 06/02/2017 HEPATITIS C VIRAL LOAD 07/02/2021 MRI ABD W&WO CONTRAST 04/13/2018 MRI ABD W&WO CONTRAST 01/03/2016 MRI ABD W&WO CONTRAST 01/13/2015 HCV LIVER FIBROSIS, FIBRO TEST 2 HCV LIVER FIBROSIS, FIBRO TEST 3 HCV LIVER FIBROSIS, FIBRO TEST 4 HCV RNA NS5A DRUG RESISTANCE 05/06/2016 US ABDOMEN COMP WITH ELASTOGRAPHY 2021 Prothrombin Time INR 12/02/2022 Prothrombin Time INR 12/03/2023 Alpha Fetoprotein 12/14/2023 US abdomen comp w elastography 4 US abdomen comp w elastography 3 US abdomen comp w elastography 3 Future Test Test Name Order Date COLONOSCOPY 07/20/2014 Next Appt Details Provider Name:Jd Fraga , 12/01/2024 11:00:00 AM, [address] [place] [address], [address], [place], [address], Insurance Providers Payer Name Payer Address Payer Phone Subscriber Number Group Number Insured Name Patient Relationship to Insured Coverage Start Date Coverage End Date [facility] [address] [address] [place], [place] [phone] [id number] MADELYN CUMMINGS Self - patient is the insured MEDICAID [facility] [address] [place] [address] [id number] MADELYN CUMMINGS Self - patient is the insured MEDICAL (GENERAL) HISTORY Medical History History ICD Code Chronic Hepatitis C--he desc ribes having been treated at [facility] for this many years ago and being treated with the non-pegylated IF TIW(no Ribavirin) without response--he describes a liver biopsy at [facility]. In January 2014 his hepatitis C viral load was over 2 million and his liver profile showed an AST of 72 and ALT of 80. His liver ultrasound was normal in March 2014. He had a negative hepatitis B antigen and positive hepatitis B surface antibody in 2013. He has hepatitis C genotype 1A . He had a liver biopsy in 2010 at [facility] with a grade 2/4 and stage III/IV. His alpha-fetoprotein level was 62 in February 2012. He had an abdominal ultrasound in March 2014 describing a normal liver, normal spleen, and no ascites. He was started on Harvoni and ribavirin to try to treat hepatitis C last year, but he had to stop that after a short time due to problems with anxiety and some palpitations. His workup also revealed probable resistance to ledipasvir(Michelle). Started Mavyret in early 04/2017----Hep C viral load neg. in early 05/2017 and LFT's were normal as well; Hep C viral load was neg. in 07/2017. His hepatitis C viral load remained negative in 2019 and his alpha-fetoprotein level dropped to 10. His MRI of the liver was also negative for any lesions in 2019. Nondetectable hepatitis C viral load in January of 2023. Denies NE,DM,CVA,Lung disease,renal dise ase Negative screening colonosco py in October of 2014, other than some internal hemorrhoids GERD Hypertension Surgical History Surgery Date(Month/Year)
--- OUTSIDE RECORDS SUMMARY | 2024-02-24 09:53 | XMS_ITS ---
Author Organization [facility] Address [address] [place] [address] Care Team Providers Care Loan Officer Assistant Name Role Phone Glory Hudson Primary Care Provider Jd Ayon Unavailable [phone] ALLERGIES No Known Allergies REASON FOR VISIT Patient presents today for ABNORMALITY OF ALPHAFETOPROTEIN MEDICATIONS Medication SIG (Take, Route, Frequency, Duration) Notes Start Date End Date Status Losartan Potassium 25 MG Oral for 90 Active Multivitamin Adult Orally A ctive Acetaminophen ER 650 MG Oral for 30 PRN Active Omeprazole 20 MG 1 capsule Orally Onc e a day for 30 Not-Taking SUMAtriptan Succinate 25 MG TAKE 1 TABLET BY MOUTH EVERY 2-4 HOURS NEEDED FOR MIGRAINE MAX 8 TABLETS DAILY Oral for 30 Not-Taking Simethicone 125 MG 1 tablet after meals and at bedtime as needed Orally Four times a day Not-Taking Ibuprofen 800 MG Orally Not -Taking IMMUNIZATIONS Vaccine Route Administration Date Status Comme nts Influenza Unknown 12/02/2022 Refused VITAL SIGNS BMI 24.83 kg/m2 12/02/2022 Blood pressure systolic 000 mm Hg 12/03/19 23 Blood pressure diastolic 00 mm Hg 023 Height 65 in 12/02/2022 Temperature 98.4 degrees Fahrenheit 12/03/19 23 Weight 149 lb 4 oz lbs 12/02/2022 Encounters Encounter Location Date Provider Diagnosis [facility] [address] [place] [address] 12/02/2022 Jd Fraga History of hepatitis C Z86.19 ; Elevated alpha fetoprotein R77.2 and Liver fibrosis K74.00 ASSESSMENTS Encounter Date Diagnosis Assessment Notes Treatment Notes Treatment Clinical Notes 12/02/2022 History of hepatitis C (ICD-10 - Z86.19) 12/02/2022 Elevated alpha fetoprotein (ICD-10 - R77.2) 12/02/2022 Liver fibrosis (ICD-10 - K74.00) PLAN OF TREATMENT Pending Test Test Name Order Date LIVER PROFILE 12/02/2022 CBC w DIFF 12/02/2022 ALPHA-FETOPROTEIN,TUMOR MARKER 3 HEPATITIS C VIRAL LOAD 12/02/2022 HCV LIVER FIBROSIS, FIBRO TEST 3 Prothrombin Time INR 12/02/2022 US abdomen comp w elastography 3 Next Appt Details Follow Up: 1 Year, Reason: Provider Name:Jd Shukla Fraga , 12/01/2024 11:00:00 AM, [address] [place] [address], [address], [place], [address], Progress Notes * Examination Category Sub-Category Detail Notes General Examination GENERAL APPEARANCE: pleasant , well nourished, well developed, in no acute distress EYES: sclera non-icteric NECK/THYROID: no cervical lymphade nopathy, neck supple HEART: S1, S2 normal LUNGS: clear to auscultatio n bilaterally ABDOMEN: normal bowel sounds, no guarding or rigidity, no hepatosplenomegaly, no masses palpable, soft, nontender, nondistended. NEUROLOGIC: alert and oriented SKIN: nonjaundiced, no spi gagan angiomata. EXTREMITIES: no edema ORAL CAVITY: mucosa moist
--- OUTSIDE RECORDS SUMMARY | 2024-02-24 09:53 | XMS_ITS ---
Author Organization [facility] Address [address] [place] [address] Care Team Providers Care Door Liner Name Role Phone Glory Hudson Primary Care Provider Jd Ayon Unavailable [phone] ALLERGIES No Known Allergies REASON FOR VISIT Patient presents today for hx hep c MEDICATIONS Medication SIG (Take, Route, Frequency, Duration) Notes Start Date End Date Status Losartan Potassium 25 MG Oral for 90 Active Simethicone 125 MG 1 tablet after meals [...] DAY AT BEDTIME Oral for 90 Active Acetaminophen ER 650 MG Oral for 30 PRN Active Multivitamin Adult Orally A ctive Ibuprofen 800 MG Orally Not -Taking VITAL SIGNS BMI 24.13 kg/m2 12/03/2023 Blood pressure systolic 00 mm Hg 12/03/19 24 Blood pressure diastolic 00 mm Hg 024 Height 65 in 12/03/2023 Weight 145 lbs 12/03/2023 Encounters Encounter Location Date Provider Diagnosis [facility] [address] [place] [address] 12/03/2023 Jd Fraga Liver fibrosis K74.00 and History of hepatitis C Z86.19 ASSESSMENTS Encounter Date Diagnosis Assessment Notes Treatment Notes Treatment Clinical Notes 12/03/2023 Liver fibrosis (ICD-10 - K74.00) 12/03/2023 History of hepatitis C (ICD-10 - Z86.19) 12/03/2023 Other We will schedul e your colonoscopy when I see you in 1 year. PLAN OF TREATMENT Treatment Notes Assessment Notes Other We will schedule you r colonoscopy when I see you in 1 year. Pending Test Test Name Order Date LIVER PROFILE 12/03/2023 CBC w DIFF 12/03/2023 ALPHA-FETOPROTEIN,TUMOR MARKER 4 HEPATITIS C VIRAL LOAD 12/03/2023 HCV LIVER FIBROSIS, FIBRO TEST 4 Prothrombin Time INR 12/03/2023 US abdomen comp w elastography 4 Next Appt Details Follow Up: 1 Year, Reason: Provider Name:Jd Fraga , 12/01/2024 11:00:00 AM, [address], [address], [place], [address], Progress Notes * Examination Category Sub-Category Detail [...]
== END 2024-02-24 10:26 | disposition home or self-care (01) ==
PROVIDERS: PCP Internal Medicine; Visit Provider Internal Medicine
DX: I10 Essential (primary) hypertension (principal); E78.00 Pure hypercholesterolemia, unspecified; K21.9 Gastro-esophageal reflux disease without esophagitis; R74.01 Elevation of levels of liver transaminase levels; Z23 Encounter for immunization

== ENCOUNTER → 2024-02-24 09:50 | Outpatient (BNVA) | payer OTHER, SELFPAY | PROVIDERS: PCP Internal Medicine; Visit Provider Internal Medicine | DX: I10 Essential (primary) hypertension (principal); E78.00 Pure hypercholesterolemia, unspecified; K21.9 Gastro-esophageal reflux disease without esophagitis; R74.01 Elevation of levels of liver transaminase levels | CPT/HCPCS: 90471; 99212 ==

== ENCOUNTER 2024-09-06 08:24 | Outpatient (REF) | payer OTHER, SELFPAY ==
--- OUTSIDE RECORDS SUMMARY | 2024-09-06 08:27 | XMS_ITS | Clinical Summary ---
Author Organization [address] [place] [address] Address [address] [place] [address] Phone Care Team Providers Care Edger Automatic Name Role Phone Glory Saeed MD Primary Care Provider [phone] Allergies Active Allergy Reactions Criticality Noted Date Comments Omeprazole Wheezing 07/31/2020 Ribavirin 07/31/2020 Other Reaction(s): Rash/Dermatitis Medications losartan (COZAAR) 25 mg tablet TAKE 1 TABLET BY MOUTH EVERY DAY 04/22/2023 Active acetaminophen (TYLENOL 8 HOUR) 650 mg 8 hr tablet Take 1 Tablet by mouth every 8 hours as needed. Active multivit-min/iron /folic acid/K (ADULTS MULTIVITAMIN ORAL) Take 1 tablet by mouth daily. Active Active Problems Problem Noted Date Diagnosed Date Palpitation 06/10/2022 Overview (03/10/2024): Last Assessment & Plan: Etiology for this is not clear. It happened 1 time. I did tell him though if this starts to recur to call me. I did tell him if it lasted over 10 to 15 minutes to call 911. Hypertension 03/31/2022 Overview (03/10/2024): Last Assessment & Plan: Today the blood pressure appears to be under good control. Wouldv continue with losartan. I did give him a slip for blood work. Chest pain 08/02/2020 Overview (03/10/2024): Last Assessment & Plan: The patient did undergo a stress echocardiogram. He did exercise for 6 minutes 21 seconds to a heart rate of 160 which is 99% of his max predicted heart rate. That time he had no chest discomforts. His blood pressure response exercise was normal. His resting ECG is unremarkable there is no ECG evidence for ischemia. Resting echocardiogram demonstrated his LVEF was normal with a muscular ventricular septal defect. There is no echocardiographic evidence for ischemia. Reviewed the results with the patient. At this time we will hold off with further cardiac evaluation. Ventricular septal defect 07/31/2020 Overview (03/10/2024): Last Assessment & Plan: Noted on echo. Stable. We will continue to monitor. Small in nature. Assessment & Plan (05/27/2024 1:40 PM EDT): Encounters Date Type Department Care Team Description 08/02/2024 11:00 AM EDT Ancillary Procedure [facility] [address] [place] [address] Ventricular septal defect; Primary hypertension from Last 3 Months Medical History Medical History Date Comments Dyspnea DX:Dyspnea Ventricular septal defect DX:Usman tricular septal defect Weight loss DX:Weight loss Family History Medical History Relation Name Comments Heart attack Father Other: CVD Father Hypertension Mother Other: Mental Illness Other Relation Name Status Comments Father Mother Other Social History Tobacco Use Types Packs/Day Years Used Date Smoking Tobacco: Former Smokeless Tobacco: Never Alcohol Use Standard Drinks/Week Comments Not Currently 0 (1 standard drink = 0.6 oz pur e alcohol) Sex and Gender Information Value Date Recorded Sex Assigned at Not on file Legal Sex Male 9:05 AM EST Gender Identity Not on file Sexual Orientation Not on file Obstetrics History Last Filed Vital Signs Vital Sign Reading Time Taken Comments Blood Pressure 112/64 08/02/2024 11:47 AM EDT Pulse 62 05/27/2024 1:26 PM EDT Temperature - - Respiratory Rate - - Oxygen Saturation 98% 05/27/2024 1:26 PM EDT Inhaled Oxygen Concentration - - Weight 66.7 kg (147 lb) 08/02/2024 11:47 AM EDT Height 162.6 cm (5' 4 ) 08/02/2024 11:47 AM EDT Body Mass Index 25.23 08/02/2024 11:47 AM EDT Plan of Treatment Health Maintenance Due Date Last Done Comments Hepatitis A Vaccines (1 of 2 - Risk 2-dose series) 1981 Hepatitis B Vaccines (2 of 3 - Risk 3-dose series) 02/26/2011 01/29/2011 Pneumococcal Vaccine: 50+ Years (1 of 1 - PCV) 2012 Zoster Vaccines (1 of 2) 2012 Cholesterol Screening (Lipid Panel) 02/09/2022 Colorectal Cancer Screening: Colonoscopy 02/09/2022 Depression Screening 02/09/2022 HIV Screening 02/09/2022 Hepatitis C Screening 02/09/2022 Social Influencers of Health Screening 02/09/2022 RSV Immunization Adult Patients (1 - Risk 60-74 years 1-dose series) 2022 COVID-19 Vaccine ( - season) 2023 Hypertension/CHF/CAD Annual BMP Blood Test 02/05/2024 02/04/2023 Influenza Vaccine (Season Ended) 2024 02/08/2021, 02/21/2019, 02/01/2018, Additional history exists DTaP,Tdap,and Td Vaccines (2 - Td or Tdap) 01/21/2026 01/22/2016 HIB Vaccines Aged Out No longer eligi ble based on patient's age to complete this topic HPV Vaccines Aged Out No longer eligi ble based on patient's age to complete this topic IPV Vaccines Aged Out No longer eligi ble based on patient's age to complete this topic MMR Vaccines Aged Out No longer eligi ble based on patient's age to complete this topic Meningococcal ACWY Vaccine Aged Out N o longer eligible based on patient's age to complete this topic Meningococcal B Vaccine Aged Out No l onger eligible based on patient's age to complete this topic Pneumococcal Vaccine: Pediatrics (0 to 5 Years) and At-Risk Patients (6 to 64 Years) Aged Out No longer eligible based on patient's age to complete this topic RSV Immunization Patients Under 20 months Aged Out No longer eligible based on patient's age to complete this topic Varicella Vaccines Aged Out No longer eligible based on patient's age to complete this topic Procedures Procedure Name Priority Date/Time Associated Diagnosis Comments TRANSTHORACIC ECHOCARDIOGRAM (TTE) COMPLETE Routine 08/02/2024 11:48 AM EDT Ventricular septal defect Primary hypertension ANNUAL BMP BLOOD TEST Routine 02/04/2023 from Last 3 Months or Most Recently Relevant to Health Maintenance Results * (ABNORMAL) TRANSTHORACIC ECHOCARDIOGRAM (TTE) COMPLETE (08/02/2024 11:48 AM EDT) Left Atrium Minor Casmalia 5.1 cm CV PACS Left Atrium Major Casmalia 4.5 cm CV PACS LA Area Sys (A2C) 18 cm2 CV PACS LA Area Sys (A4C) 11 cm2 CV PACS LA Volume (BP) 35 mL CV PACS RA Area 11.9 cm2 CV PACS RA 2D Volume 27 mL CV PACS AV Mean Gradient 3 mmHg CV PACS Ao VTI 28.5 cm CV PACS AV Peak Ari 1.3 m/s CV PACS AV Peak Gradient 7 mmHg CV PACS AV Area Continuity Equation 3.2 cm2 CV PACS AV Area Peak Velocity 3.0 cm2 CV PACS Aortic Sinus Valsalva 3.0 cm CV PACS Ascending Aorta 3.3 cm CV PACS IVC Proximal 1.7 cm CV PACS IVSD 0.9 0.6 - 1.0 cm CV PACS LVIDD 5.3 4.2 - 5.8 cm CV PACS LVIDS 3.2 2.5 - 4.0 cm CV PACS LVOT Diameter 2.1 cm CV PACS LVOT Mean Ari 0.7 m/s CV PACS LVOT Mean Grad 2 mmHg CV PACS LVOT Peak VTI 26.0 cm CV PACS LVOT Peak Ari 1.2 m/s CV PACS LVOT Peak Gradient 5 mmHg CV PACS LVPWD 0.8 0.6 - 1.0 cm CV PACS MV E' Tissue Velocity Lateral 12 cm/s CV PACS MV E' Tissue Velocity Septal 9 cm/s CV PACS LVOT Area 3.5 cm2 CV PACS LVOT Stroke Volume 90 mL CV PACS MV Deceleration [place] 4.6 m/s2 CV PACS E Wave Deceleration Time 168 119 - 242 ms CV PACS MV PHT 49 ms CV PACS MV Peak A Ari 0.90 m/s CV PACS MV Peak E Ari 0.78 m/s CV PACS MV Area PHT 4.5 cm2 CV PACS PV Acceleration Time 139 ms CV PACS PV Mean Gradient 1 mmHg CV PACS PV VTI 13.1 cm CV PACS PV Peak Velocity 0.7 m/s CV PACS PV Peak Gradient 2 mmHg CV PACS RVOT Diameter 2.1 cm CV PACS RVOT VTI 12.2 cm CV PACS RVOT Peak Ari 0.5 m/s CV PACS RV Diastolic Basal Dimension 2.7 2.5 - 4.1 cm CV PACS RVOT Area 3.5(A) 10 - 24 cm2 CV PACS RVOT Stroke Volume 42 cm3 CV PACS TAPSE 24 mm CV PACS TR Peak Velocity 1.81 m/s CV PACS TR Peak Gradient 13 mmHg CV PACS Qp:Qs Ratio 0.47 CV PACS E/E' Ratio Septal 9 CV PACS E/E' Ratio Averaged 8 CV PACS Relative Wall Thickness ratio 0.30 CV PACS LVOT:AV VTI Index 0.91 CV PACS FS 40 % CV PACS LV Mass 2D 162 g CV PACS LVOT flow 242 mL/s CV PACS AV Velocity Ratio 0.92 CV PACS E/A Ratio 0.9 CV PACS E/E' Ratio Lateral 7 CV PACS BSA 1.74 m2 CV PACS LA Volume Index (BP) 20 mL/m2 CV PACS LVIDD Index 3.08 cm/m2 CV PACS LVIDS Index 1.86 cm/m2 CV PACS LV Mass Index 2D 94 50 - 102 g/m2 CV PACS LVOT Stroke Index 52 mL/m2 CV PACS RA 2D Volume Index 16(A) 18 - 32 mL/m2 CV PACS NORA Index (VTI) 1.84 cm2/m2 CV PACS NORA Index (Pk Ari) 1.74 cm2/m2 CV PACS Ascending Aorta Index 1.92 cm/m2 CV PACS Anatomical Region Laterality Modality Ultrasound Narrative 08/08/2024 1:34 PM EDT Left ventricle cavity size is normal. Wall thickness is normal. Systolic function is normal with an ejection fraction of 55-60%. There are no regional LV wall motion abnormalities. Muscular ventricular septal defect noted appears similar to prior. Left to right shunting. Does not appear to of hemodynamic significance similar to prior studies. There is no diastolic dysfunction. Right ventricle cavity is normal. Right ventricular systolic function is normal. The atria are normal in size. No hemodynamically significant valve disease. See remainder of the report for additional findings. Left Ventricle Left ventricle cavity size is normal. Wall thickness is normal. Systolic function is normal with an ejection fraction of 55-60%. There are no regional LV wall motion abnormalities. Muscular ventricular septal defect noted appears similar to prior. Does not appear to of hemodynamic significance similar to prior studies. There is no diastolic dysfunction. Right Ventricle Right ventricle cavity appears normal. Systolic function is normal. Left Atrium Left atrium cavity size is normal. Right Atrium Right atrium cavity is normal. Mitral Valve The leaflets are mildly thickened. There is trace regurgitation. There is no evidence of mitral valve stenosis. Tricuspid Valve Tricuspid valve structure is normal. There is trace regurgitation. There is no evidence of tricuspid valve stenosis. Aortic Valve The aortic valve is trileaflet. There is no regurgitation or stenosis. Pulmonic Valve Pulmonic valve structure is normal. No significant pulmonic valve regurgitation. There is no evidence of pulmonic valve stenosis. Ascending Aorta The Sinus of Valsalva is (3.0 cm). The ascending aorta is (3.3 cm). Pericardium Pericardium appears normal. Study Details Overall the study quality was adequate. Kevin Mcbride MD CV ECHO PROCEDURES Final Result * Annual BMP Blood Test (02/04/2023) Annual BMP Blood Test abstracted Historical Provider HEALTH MAINTENANCE Final Result from Last 3 Months or Most Recently Relevant to Health Maintenance Insurance [facility] Care Teams Edger Automatic Relationship Specialty Start Date End Date Glory Saeed MD [address] [facility] , [address] [place] [address] Physician Associ D/B/A: [facility] [place] PCP - General Internal Medicine 06/21/20
--- OUTSIDE RECORDS SUMMARY | 2024-09-06 08:28 | XMS_ITS | Patient Health Record ---
Author Organization [facility] Address [address] [place] [address] Care Team Providers Care Psychologist Industrial Organizational Name Role Phone Glory Hudson Primary Care Provider UnavailJd Cooley Unavailable [phone] Allergies No Known Allergies Results Component Value Reference Range Notes Complete Blood Count Auto Di ff Reviewed date:12/14/2023 11:56:20 PM Interpretation: Performing Lab:[facility], [address] [place] [phone] Notes/Report: White Blood Count 7.5 4.8-10.8 X10*3/uL [...] INR Reviewed date:12/14/2023 11:56:29 PM Interpretation: Performing Lab:[address] [phone] Notes/Report: Prothrombin Time 12.5 10.9-12.4 [employer] [...] Panel Reviewed date:12/14/2023 11:57:10 PM Interpretation: Performing Lab:[facility], [address] [place] [phone] Notes/Report: Bilirubin Total 0.6 0.0-1.0 mg/dL Bilirubin Direct 0.2 0.0-0.5 mg/dL Aspartate Amino Transferase 25 5-37 U/L Alanine Aminotransferase 19 0-40 U/L Total Protein 8.5 6.5-8.0 g/dL Albumin Level 4.8 3.5-5.0 g/dL Alkaline Phosphatase 44 39-117 U/L Alpha Fetoprotein (Not yet r eviewed by provider) Interpretation: Performing Lab:[address] [address] Notes/Report: Alpha Fetoprotein 8.2 <6.1 ng/mL This test was performed using the Jennifer Christian chemiluminescent method. Values obtained from different assay methods cannot be used interchangeably. AFP levels, regardless of value, should not be interpreted as absolute evidence of the presence or absence of disease. THIS TEST WAS PERFORMED AT: [employer] [address] [place] [phone] SANDI MERRILL MD Liver Fibrosis Pnl Reviewed date:12/21/2023 05:49:30 PM Interpretation: Performing Lab:[facility], [address] [place] [phone] Notes/Report: Liver Fibrosis Score 0.57 Liver Fibrosis [...] a>0.62 and a<=1.00 : A3 (severe activity) JFE-Fwykq-2-Macroglobulin 390 106-279 mg/dL FIB-Haptoglobin 55 43-212 mg/dL FIB-Apolipoprotein A1 205 94-176 mg/dL FIB-Total Bilirubin 0.6 0.2-1.2 mg/dL FIB-GGT 30 3-70 U/L FIB-ALT 16 9-46 U/L Reference ID [id number] Footnote SEE NOTE The reliability of results [...] The performance characteristics have been determined by [facility]. It has not been cleared or approved by the U.S. Food and Drug Administration. Performance characteristics refer to the analytical performance of the test. [employer], [employer], the associated logo, [employer] and all associated [employer] morel are the registered trademarks of [employer]. All third alliance party morel - (R) and (TM) - are the property of their respective owners. (C) 5645-2952 [employer] Incorporated. All rights reserved. THIS TEST WAS PERFORMED AT: [employer] [facility] [address] [place] [address] ANGELINE FLYNN MD,PHD,YING Hep C Viral Load Reviewed date:12/28/2023 11:11:01 PM Interpretation: Performing Lab:[facility], [address] [place] [phone] Notes/Report: HepC Viral Load <15 NOT DETECTED NOT DETECTED IU/mL HCV Log PCR <1.18 NOT DETECTED NOT DETECTED Log IU/mL For additional information, please refer to http://education.Lovestruck.com/faq/FAQ22v 1 (This link is being provided for informational/ educational purposes only.) THIS TEST WAS PERFORMED AT: [employer] [address] [place] [phone] SANDI MERRILL MD US abdomen das w elastograph y Reviewed date:12/14/2023 11:55:50 PM Interpretation: Performing Lab: Notes/Report: [address] [address] Ultrasound Report Signed Patient: Madelyn Cummings MR#: [id number] 6 : 1960 Acct:[id number] Age/Sex: 63 / M ADM Date: 12/14/23 Loc: HO.US Attending Dr: Jd Fraga MD Ordering Physician: Jd Fraga MD Date of Service: 12/14/23 Procedure(s): US abdomen das w elastography Accession Number(s): [id number] cc: Glory Hudson MD; Jd Fraga MD EXAMINATION: US ABDOMEN LIMITED WITH LIVER ELASTOGRAPHY CLINICAL INFORMATION: History of hepatitis C. COMPARISON: January 07, 2023. TECHNIQUE: Real-time imaging of the abdominal viscera. Noninvasive ultrasound liver fibrosis assessment is performed using a [employer] Doreen to determine point quantification shear wave [...] in OV> 12/14/23 1149 DD/ TD/TT: 12/14/23925 Fuel Conversion Technician: Reason For Referral No Information Medications Medication SIG (Take, Route, Frequency, Duration) Notes [...] Active Ibuprofen 800 MG Orally Not -Taking Immunizations Vaccine Route Administration Date Status Comme nts Influenza Unknown 11/07/2017 Administered Influenza Unknown 11/07/2020 Administered Influenza Unknown 12/02/2022 Refused Problems Problem Type SNOMED Code ICD Code Onset Dates Problem Status W/U Status Risk Notes Problem 987244680 Chronic hepatiti s C without hepatic coma (B18.2) Active confirmed Problem 310984932 Elevated liver enzymes (R74.8) Active confirmed Problem 079808131 Gastroesophageal reflux disease, esophagitis presence not specified (K21.9) Active confirmed Problem 468279801 Elevated alpha fetoprotein (R77.2) Active confirmed Problem 24410155467456 History of hepatitis C (Z86.19) Active confirmed Problem 27306832 Liver fibrosis (K74.0) Active confirmed Problem 83681623 Liver fibrosis (K74.00) Active confirmed Vital Signs Blood pressure diastolic 00 mm Hg 12/03/2023 Height 65 in 12/03/2023 Blood pressure systolic 00 mm Hg 12/03/2023 Weight 145 lbs 12/03/2023 BMI 24.13 kg/m2 12/03/2023 Encounters Encounter Location Date Provider Diagnosis [facility] [address] [place] [address] 12/03/2023 Jd Fraga Liver fibrosis K74.00 and History of hepatitis C Z86.19 Assessments Encounter Date Diagnosis (ICD Code) Assessment Notes Treatment Notes Treatment Clinical Notes Section Notes 12/03/2023 History of hepatitis C (ICD-10 - Z86.19) Overall, Madelyn appears quite well. His liver disease remains well-compensated at the present time. He does not describe any symptoms nor show any signs of progressive liver disease. We did review his laboratories and ultrasound from last year. I shall schedule him for followup studies including the ultrasound and alpha-fetoprotei n level. We we also reviewed that he will be due for a followup colonoscopy in 2024. If things remain well I will see him in one year for a followup visit and then schedule his screening colonoscopy at that time. I did advise him to contact me before that if he has any problems or questions I can be of assistance with. Madelyn was comfortable with this plan. Thank you again for allowing me to participate in Madelyn's care. I shall continue to keep you advised of his progress. 12/03/2023 Liver fibrosis (ICD-10 - K74.00) Overall, Madelyn appears quite well. His liver disease remains well-compensated at the present time. He does not describe any symptoms nor show any signs of progressive liver disease. We did review his laboratories and ultrasound from last year. I shall schedule him for followup studies including the ultrasound and alpha-fetoprotei n level. We we also reviewed that he will be due for a followup colonoscopy in 2024. If things remain well I will see him in one year for a followup visit and then schedule his screening colonoscopy at that time. I did advise him to contact me before that if he has any problems or questions I can be of assistance with. Madelyn was comfortable with this plan. Thank you again for allowing me to participate in Madelyn's care. I shall continue to keep you advised of his progress. 12/03/2023 Other We will schedule your colonoscopy when I see you in 1 year. Overall, Madelyn appears quite well. His liver disease remains well-compensated at the present time. He does not describe any symptoms nor show any signs of progressive liver disease. We did review his laboratories and ultrasound from last year. I shall schedule him for followup studies including the ultrasound and alpha-fetoprotei n level. We we also reviewed that he will be due for a followup colonoscopy in 2024. If things remain well I will see him in one year for a followup visit and then schedule his screening colonoscopy at that time. I did advise him to contact me before that if he has any problems or questions I can be of assistance with. Madelyn was comfortable with this plan. Thank you again for allowing me to participate in Madelyn's care. I shall continue to keep you advised of his progress. Plan Of Treatment Pending Test Test Name Order Date LIVER PROFILE 05/06/2016 LIVER PROFILE 12/02/2022 LIVER PROFILE 04/13/2017 LIVER PROFILE 03/16/2015 LIVER PROFILE 07/02/2021 LIVER PROFILE 12/03/2023 LIVER PROFILE 06/02/2017 LIVER PROFILE 03/10/2017 CBC w DIFF 07/02/2021 CBC w DIFF 12/03/2023 CBC w DIFF 06/02/2017 CBC w DIFF 03/10/2017 CBC w DIFF 12/02/2022 CBC w DIFF 12/02/2016 CBC w DIFF 04/13/2017 CBC w DIFF 03/16/2015 PROTHROMBIN TIME (PT, INR) 07/02/2021 ALPHA-FETOPROTEIN,TUMOR MARKER 4 ALPHA-FETOPROTEIN,TUMOR MARKER 2 ALPHA-FETOPROTEIN,TUMOR MARKER 3 OTHER REF LAB TEST - MISC 06/19/2016 HEPATITIS C VIRAL LOAD 04/13/2017 HEPATITIS C VIRAL LOAD 03/16/2015 HEPATITIS C VIRAL LOAD 06/02/2017 HEPATITIS C VIRAL LOAD 03/10/2017 HEPATITIS C VIRAL LOAD 05/06/2016 HEPATITIS C VIRAL LOAD 12/03/2023 HEPATITIS C VIRAL LOAD 07/02/2021 HEPATITIS C VIRAL LOAD 12/02/2022 MRI ABD W&WO CONTRAST 01/03/2016 MRI ABD W&WO CONTRAST 01/13/2015 MRI ABD W&WO CONTRAST 04/13/2018 HCV LIVER FIBROSIS, FIBRO TEST 3 HCV LIVER FIBROSIS, FIBRO TEST 4 HCV LIVER FIBROSIS, FIBRO TEST 2 HCV RNA NS5A DRUG RESISTANCE 05/06/2016 US ABDOMEN COMP WITH ELASTOGRAPHY 2021 Prothrombin Time INR 12/02/2022 Prothrombin Time INR 12/03/2023 Alpha Fetoprotein 12/14/2023 US abdomen comp w elastography 4 US abdomen comp w elastography 3 US abdomen comp w elastography 3 Future Test Test Name Order Date COLONOSCOPY 07/20/2014 Next Appt Details Provider Name:Jd Fraga , 12/01/2024 11:00:00 AM, [address] [place] [address], [address], [place], [address], Insurance Providers Payer Name Payer Address Payer Phone Subscriber Number Group Number Insured Name Patient Relationship to Insured Coverage Start Date Coverage End Date [facility] [address] [address] [place], [place] [id number] MADELYN CUMMINGS Self - patient is the insured MEDICAID [facility] [address] [place] [address] [id number] MADELYN CUMMINGS Self - patient is the insured Medical (General) History Medical History History ICD Code Chronic Hepatitis C--he desc ribes having been treated at [facility] for this many years ago and being treated with the non-pegylated IF TIW(no Ribavirin) without response--he describes a liver biopsy at [facility]. In January 2014 his hepatitis C viral load was over 2 million and his liver profile showed an AST of 72 and ALT of 80. His liver ultrasound was normal in March 2014. He had a negative hepatitis B antigen and positive hepatitis B surface antibody in 2013. He has hepatitis C genotype 1A . He had a liver biopsy in 2010 at [facility] with a grade 2/4 and stage III/IV. [...] viral load in January of 2023. Denies MA,DM,CVA,Lung disease,renal dise ase Negative screening colonosco py in October of 2014, other than some internal hemorrhoids GERD Hypertension Surgical History Surgery Date(Month/Year)
[2024-09-06 09:45] LABS: Alanine Aminotransferase 28 U/L (0-40); Albumin Level 4.4 g/dL (3.5-5.0); Alkaline Phosphatase 47 U/L (39-117); Anion Gap 10 (12-20); Aspartate Amino Transferase 34 U/L (5-37); Blood Urea Nitrogen 15 mg/dL (9-16); Calcium 9.3 mg/dL (8.4-10.2); Carbon Dioxide 29 mmol/L (22-29); Chloride 105 mmol/L (96-108); Cholesterol 242 mg/dL (<200); Estimated Glomerular Filt Rate > 60; HDL Cholesterol 49 mg/dL (>40); Potassium 3.8 mmol/L (3.3-5.1); Sodium 140 mmol/L (135-145); Total Protein 7.5 g/dL (6.5-8.0); Triglycerides 125 mg/dL (<150)
== END 2024-09-06 08:25 | disposition home or self-care (01) ==
LOC: HO.LAB 08:24
PROVIDERS: PCP Internal Medicine; Visit Provider Internal Medicine
DX: E78.00 Pure hypercholesterolemia, unspecified (principal); E78.5 Hyperlipidemia, unspecified
CPT/HCPCS: 36415; 80053; 80061

== ENCOUNTER 2024-09-14 08:51 | Outpatient (AMB) | payer OTHER, SELFPAY ==
[2024-09-14 08:53] VITALS: BP 118/74; BMI 25.1
--- NOTE | 2024-09-14 08:53 | MHC.PC.OV ---
Vital Signs 09/14/24 08:53 Height 5 ft 4 in Weight 146 lb BMI 25.1 BP 118/74 Blood Pressure Location Lt brachial Position Sitting Intake Visit Reasons: Annual Examc- PHQ-9 needed. 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: Patient has dentist HPI HPI Comments History of Present Illness Details This is a 63-year-old male that comes for his physical exam. Vaccines are up-to-date. Colonoscopy done 2014 and this is follow by Gastroenterology. No chest pain or shortness on breath. No change in bowel or bladder habits. Has elevated cholesterol with a [place] risk score of 13.1% and just started statins. Advise low-cholesterol diet. He eats eggs every day. [facility] Medical History Abdominal gas pain History of hepatitis C virus infection VSD (ventricular septal defect) Surgical History No pertinent past surgical history Family History Father CVD (cardiovascular disease) Mother Hypertension Family/Other FH: mental illness Social History Housing: Apartment Alcohol intake: former Year quit: 2009 Patient Tobacco Use Status: Former Tobacco user Tobacco use type: Cigarette e-Cigarette/Vaping Use: Never Used Second Hand Smoke Exposure: No service: No Current occupational status: other Cognitive needs: No Hearing needs: No Vision needs: Yes (reading glasses) Questionnaire PHQ-9 Over the last 2 weeks, how often have you been bothered by any of the following problems? 1. Little interest or pleasure in doing things: not at all 2. Feeling down, depressed, or hopeless: not at all 3. Trouble falling or staying asleep, or sleeping too much: not at all 4. Feeling tired or having little energy: several days 5. Poor appetite or overeating: not at all 6. Feeling bad about yourself - or that you are a failure or have let yourself or your family down: not at all 7. Trouble concentrating on things, such as reading the newspaper or watching television: not at all 8. Moving or speaking so slowly that other people could have noticed. Or the opposite - being so fidgety or restless that you have been moving around a lot more than usual: not at all 9. Thoughts that you would be better off or of hurting yourself in some way: not at all Total score: 1 Depression Screening Interpretation: Negative Depression Screening Done: Yes 76181 - PHQ-9 Billing: Yes Source: Developed by Drs. Jd Smith, Felicitas Cosme, Leonardo Rogers and colleagues, with an educational espinoza from [employer]. Thrive Questionnaire Date Thrive assessed: 09/14/24 I am a: Patient What is your living situation today?: I have a steady place to live Within the past 12 months, did the food you bought not last and you didn't have the money to get more?: Never true Within the past 12 months, did you worry whether your food would run out before you got money to buy more?: Never true Do you have trouble paying for medicines?: No Do you have trouble getting transportation to medical appointments?: No Do you have trouble paying your heating and electricity bill?: No Do you have trouble taking care of your child, family member or friend?: No Do you have trouble with day-to-day activities such as bathing, preparing meals, shopping, managing finances, etc.?: No Are you currently unemployed and looking for a job?: No Are you interested in more education?: No Please select the resources that you would like help with: None Currently or been in a relationship where the following occur: No concerns reported THRIVE Score: 0 AUDIT C Alcohol Use Questionnaire (AUDIT-C) 1. How often do you have a drink containing alcohol?: Never Total Score: 0 Score Reviewed/Action Taken: No KATEY-7 AMB Questionnaire KATEY-7 Date KATEY - 7 assessed: 09/14/24 Feeling nervous, anxious, or on edge: 0 = Not at all Not being able to stop or control worryin = Not at all Worrying too much about different things: 0 = Not at all Trouble relaxin = Not at all Being so restless that it is hard to sit still: 0 = Not at all Becoming easily annoyed or irritable: 0 = Not at all Feeling afraid as if something awful might happen: 0 = Not at all Total KATEY-7 score (0-4 normal; 5-9 mild; 10-14 moderate; 15-21 severe): 0 Source: Developed by Drs. Jd Smith, Felicitas Cosme, Leonardo Rogers and colleagues, with an educational espinoza from [employer]. KATEY-7 Assessment Billing KATEY-7 Assessment Tool: KATEY-7 Assessment 87321 Review of Systems Const All systems reviewed & are unremarkable except as noted in HPI and below Card Denies chest pain at rest, Denies chest pain with activity, Denies edema, Denies irregular heart rhythm, Denies claudication, Denies dyspnea, Denies dyspnea on exertion, Denies orthopnea, Denies paroxysmal nocturnal dyspnea and Denies slow heart rate Resp Denies cough, Denies dyspnea and Denies dyspnea on exertion GI Denies abdominal pain, Denies change in bowel habits, Denies excessive flatus, Denies nausea and Denies vomiting Denies urinary hesitancy, Denies urinary incontinence and Denies urinary urgency Musc Denies abnormal gait, Denies atrophy, Denies deformity and Denies limited range of motion Skin/Breast Denies bleeding lesions, Denies changing lesions and Denies rash Neuro Denies abnormal gait, Denies behavioral changes and Denies lack of coordination Psych Denies behavioral changes Endo Denies cold intolerance Physical exam (Primary Care) Vital Signs: Last Vital Signs BP 118/74 09/14/24 08:53 BMI result Body Mass Index 25.1 Tobacco/Smoking Status: Tobacco use Status Tobacco use date assessed 09/14/24 09/14/24 08:58 Patient Tobacco Use Status Former Tobacco user 09/14/24 08:58 Tobacco use type Cigarette 09/14/24 08:58 e-Cigarette/Vaping Use Never Used 09/14/24 08:58 PHQ-9: PHQ-9 Score PHQ-9: Total score 1 09/14/24 08:58 Depression Screening Interpretation: Negative Thrive Assessment: Date of Thrive Assessment Date Thrive assessed 09/14/24 09/14/24 08:58 Currently or been in a relationship where the following occur: No concerns reported HENNV Head: Yes normal to inspection, Yes normocephalic and Yes atraumatic Ears: external ears normal Eyes General: appearance normal, both eyes and all related structures Eyelids: Yes eyelids normal Conjunctivae: conjunctivae normal Neck Neck: Yes normal visual inspection and Yes supple Resp Effort & Inspection: normal respiratory effort Auscultation: clear to auscultation bilaterally Cardio Jugular venous distension: no JVD Rate: regular rate Rhythm: regular rhythm Heart sounds: S1 normal heart sound present and S2 normal heart sound present GI Inspection: Yes normal to inspection Palpation (GI): Soft to palpation and nontender Auscultation: normal bowel sounds Skin General skin exam: no rashes or lesions noted Neuro General: no focal motor deficits Extrem General: Yes full ROM Psych Appearance: grossly normal Coding Level of Care Code Est Pt Prev Care 40-64y(35818) Diagnoses Encounter for physical examination Z00.00 Additional Codes PHQ-9 - 40782 - PHQ-9 Billing: Yes ([id number]) KATEY-7 Assessment Billing - KATEY-7 Assessment Tool: KATEY-7 Assessment 00302 ([id number]) Time Spent (min) 31 Assessment & Plan Assessment & Plan (1) Encounter for physical examination: Comment: UTD eye and dental Code(s): Z00.00 - Encounter for general adult medical examination without abnormal findings Category: Medical Plan Continue same medications. Repeat lipid panel in 6 months. Contact gastroenterology for colonoscopy. Orders: Orders Lipid Panel 6 Months E78.5 - Hyperlipidemia, unspecified Medications: New losartan 25 mg PO DAILY 90 tabs 1RF 90 days
--- OUTSIDE RECORDS SUMMARY | 2024-09-14 09:06 | XMS_ITS | Clinical Summary ---
Author Organization [address] [place] [address] Address [address] [place] [address] Phone Care Team Providers Care Salon Assistant Name Role Phone Glory Saeed MD Primary Care Provider [phone] Allergies Active Allergy Reactions Criticality Noted Date [...] Description 08/02/2024 11:00 AM EDT Ancillary Procedure [facility] [address] [place] [address] Ventricular septal defect; Primary hypertension [...] 60-74 years 1-dose series) 2022 COVID-19 Vaccine (1 - season) 2023 Hypertension/CHF/CAD Annual BMP Blood Test 02/05/2024 02/04/2023 Influenza Vaccine (#1) 2024 , 02/21/2019, 02/01/2018, Additional history exists DTaP,Tdap,and Td [...] 5 Years) and At-Risk Patients (6 to 49 Years) Aged Out No longer eligible based [...] (08/02/2024 11:48 AM EDT) Left Atrium Minor [place] 5.1 cm CV PACS Left Atrium Major [place] 4.5 cm CV PACS LA Area Sys [...] Volume 90 mL CV PACS MV Deceleration [place] 4.6 m/s2 CV PACS E Wave Deceleration [...] Most Recently Relevant to Health Maintenance Insurance [facility] Care Teams Salon Assistant Relationship Specialty Start Date End Date Glory Saeed MD [address] [facility] , [address] [place] [address] Physician Associ D/B/A: [facility] [place] PCP - General Internal Medicine 06/21/20
--- OUTSIDE RECORDS SUMMARY | 2024-09-14 09:06 | XMS_ITS | Patient Health Record ---
Author Organization [facility] Address [address] [place] [address] Care Team Providers Care Urban Redevelopment Specialist Name Role Phone Glory Hudson Primary Care Provider UnavailJd Cooley Unavailable [phone] Allergies No Known Allergies Results Component Value Reference Range Notes Complete Blood Count Auto Di ff Reviewed date:12/14/2023 11:56:20 PM Interpretation: Performing Lab:[facility], [address] [place] [phone] Notes/Report: White Blood Count 7.5 4.8-10.8 X10*3/uL [...] Reviewed date:12/14/2023 11:56:29 PM Interpretation: Performing Lab:[address] [phone] Notes/Report: Prothrombin Time 12.5 10.9-12.4 SEC INTERNATIONAL [...] Panel Reviewed date:12/14/2023 11:57:10 PM Interpretation: Performing Lab:[facility], [address] [place] [phone] Notes/Report: Bilirubin Total 0.6 0.0-1.0 mg/dL Bilirubin Direct 0.2 0.0-0.5 mg/dL Aspartate Amino Transferase 25 5-37 U/L Alanine Aminotransferase 19 0-40 U/L Total Protein 8.5 6.5-8.0 g/dL Albumin Level 4.8 3.5-5.0 g/dL Alkaline Phosphatase 44 39-117 U/L Alpha Fetoprotein (Not yet r eviewed by provider) Interpretation: Performing Lab:[address] [address] Notes/Report: Alpha Fetoprotein 8.2 <6.1 ng/mL This test was performed using the Jennifer Christian chemiluminescent method. Values obtained from different assay methods cannot be used interchangeably. AFP levels, regardless of value, should not be interpreted as absolute evidence of the presence or absence of disease. THIS TEST WAS PERFORMED AT: [facility] [address] [place] [phone] SANDI MERRILL MD Liver Fibrosis Pnl Reviewed date:12/21/2023 05:49:30 PM Interpretation: Performing Lab:[facility], [address] [place] [phone] Notes/Report: Liver Fibrosis Score 0.57 Liver Fibrosis [...] a>0.62 and a<=1.00 : A3 (severe activity) IJB-[place]whau-6-Macroglobulin 390 106-279 mg/dL FIB-Haptoglobin 55 43-212 mg/dL FIB-Apolipoprotein A1 205 94-176 mg/dL FIB-Total Bilirubin 0.6 0.2-1.2 mg/dL FIB-GGT 30 3-70 U/L FIB-ALT 16 9-46 U/L Reference ID [id number] Footnote SEE NOTE The reliability of results [...] The performance characteristics have been determined by [facility]. It has not been cleared or approved by the U.S. Food and Drug Administration. Performance characteristics refer to the analytical performance of the test. [employer], [employer], the associated logo, [employer] and all associated [employer] morel are the registered trademarks of [employer]. All third alliance party morel - (R) and (TM) - are the property of their respective owners. (C) 9154-8767 [employer]. All rights reserved. THIS TEST WAS PERFORMED AT: [employer] [facility] [address] [place] [address] ANGELINE FLYNN MD,PHD,YING Hep C Viral Load Reviewed date:12/28/2023 11:11:01 PM Interpretation: Performing Lab:[facility], [address] [place] [phone] Notes/Report: HepC Viral Load <15 NOT DETECTED NOT DETECTED IU/mL HCV Log PCR <1.18 NOT DETECTED NOT DETECTED Log IU/mL For additional information, please refer to http://education.Matcha/faq/FAQ22v 1 (This link is being provided for informational/ educational purposes only.) THIS TEST WAS PERFORMED AT: [facility] [address] [place] [phone] SANDI MERRILL MD US abdomen das w elastograph y Reviewed date:12/14/2023 11:55:50 PM Interpretation: Performing Lab: Notes/Report: [address] [address] Ultrasound Report Signed Patient: Madelyn Cummings MR#: [id number] 6 : 1960 Acct:[id number] Age/Sex: 63 / M ADM Date: 12/14/23 Loc: HO.US Attending Dr: Jd Fraga MD Ordering Physician: Jd Fraga MD Date of Service: 12/14/23 Procedure(s): US abdomen das w elastography Accession Number(s): [id number] cc: Glory Hudson MD; Jd Fraga MD EXAMINATION: US ABDOMEN LIMITED WITH LIVER ELASTOGRAPHY CLINICAL INFORMATION: History of hepatitis C. COMPARISON: January 07, 2023. TECHNIQUE: Real-time imaging of the abdominal viscera. Noninvasive ultrasound liver fibrosis assessment is performed using a [facility] to determine point quantification shear wave [...] in OV> 12/14/23 1149 DD/ TD/TT: 12/14/23925 Home Comfort Advisor: Reason For Referral No Information Medications Medication [...] Problem Status W/U Status Risk Notes Problem 767536269 Chronic hepatiti s C without hepatic coma (B18.2) Active confirmed Problem 529584516 Elevated liver enzymes (R74.8) Active confirmed Problem 297523470 Gastroesophageal reflux disease, esophagitis presence not specified (K21.9) Active confirmed Problem 213242069 Elevated alpha fetoprotein (R77.2) Active confirmed Problem 87826490303003 History of hepatitis C (Z86.19) Active confirmed Problem 62720383 Liver fibrosis (K74.0) Active confirmed Problem 94017487 Liver fibrosis (K74.00) Active confirmed Vital Signs Blood pressure diastolic 00 mm Hg 12/03/2023 Height 65 in 12/03/2023 Blood pressure systolic 00 mm Hg 12/03/2023 Weight 145 lbs 12/03/2023 BMI 24.13 kg/m2 12/03/2023 Encounters Encounter Location Date Provider Diagnosis [facility] [address] [place] [address] 12/03/2023 Jd Fraga Liver fibrosis K74.00 and [...] 06/02/2017 LIVER PROFILE 03/10/2017 CBC w DIFF 12/03/2023 CBC w DIFF 06/02/2017 CBC w DIFF 03/10/2017 CBC w DIFF 12/02/2022 CBC w DIFF 12/02/2016 CBC w DIFF 04/13/2017 CBC w DIFF 03/16/2015 CBC w DIFF 07/02/2021 PROTHROMBIN TIME (PT, INR) 07/02/2021 ALPHA-FETOPROTEIN,TUMOR MARKER 4 ALPHA-FETOPROTEIN,TUMOR MARKER 2 ALPHA-FETOPROTEIN,TUMOR MARKER 3 OTHER REF LAB TEST - MISC 06/19/2016 HEPATITIS C VIRAL LOAD 06/02/2017 HEPATITIS C VIRAL LOAD 03/10/2017 HEPATITIS C VIRAL LOAD 05/06/2016 HEPATITIS C VIRAL LOAD 12/03/2023 HEPATITIS C VIRAL LOAD 07/02/2021 HEPATITIS C VIRAL LOAD 12/02/2022 HEPATITIS C VIRAL LOAD 04/13/2017 HEPATITIS C VIRAL LOAD 03/16/2015 MRI ABD W&WO CONTRAST 01/03/2016 MRI ABD [...] Provider Name:Jd Fraga , 12/01/2024 11:00:00 AM, [address] [place] [address], [address], [place], [address], Insurance Providers Payer Name Payer Address Payer Phone Subscriber Number Group Number Insured Name Patient Relationship to Insured Coverage Start Date Coverage End Date [facility] [employer] [facility] [address] [address] [place], [place] [phone] [id number] MADELYN CUMMINGS Self - patient is the insured MEDICAID [facility] [address] [place] [address] [phone] [id number] MADELYN CUMMINGS Self - patient is the insured Medical (General) History Medical History History ICD Code Chronic Hepatitis C--he desc ribes having been treated at [facility] for this many years ago and being treated with the non-pegylated IF TIW(no Ribavirin) without response--he describes a liver biopsy at [facility]. In January 2014 his hepatitis [...] had a liver biopsy in 2010 at [facility] with a grade 2/4 and [...] viral load in January of 2023. Denies CO,DM,CVA,Lung disease,renal dise ase Negative screening colonosco py in October of 2014, other than some internal hemorrhoids GERD Hypertension Surgical History Surgery Date(Month/Year)
== END 2024-09-14 09:39 | disposition home or self-care (01) ==
LOC: HO.HMCH 08:52
PROVIDERS: PCP Internal Medicine; Visit Provider Internal Medicine
DX: Z00.00 Encounter for general adult medical examination without abnormal findings (principal)

== ENCOUNTER → 2024-09-14 08:51 | Outpatient (BNVA) | payer OTHER, SELFPAY | PROVIDERS: PCP Internal Medicine; Visit Provider Internal Medicine | DX: Z00.00 Encounter for general adult medical examination without abnormal findings (principal); E78.00 Pure hypercholesterolemia, unspecified | CPT/HCPCS: 96127; 99396 ==

== ENCOUNTER 2024-09-23 19:17 | Emergency (ER) | payer OTHER, SELFPAY ==
--- NOTE | 2024-09-23 | ECG_ITS ---
Test Reason : cp Blood Pressure : */* mmHG Vent. Rate : 51 BPM Atrial Rate : 51 BPM P-R Int : 144 ms QRS Dur : 92 ms QT Int : 424 ms P-R-T Axes : -21 4 10 degrees QTcB Int : 390 ms Sinus bradycardia Otherwise normal ECG When compared with ECG of 14-Mar-2023 17:05, Premature atrial complexes are no longer Present Referred By: Ean Tee Electronically Signed By: BRITNI JADE
--- NOTE | ~2024-09-23 | XR_ITS ---
CLINICAL HISTORY: cp sob 1 view chest x-ray Comparison: CR/DC/SR - XR CHEST 2 VIEWS - 03/14/23 18:04 EST Findings: No consolidation or effusion. Normal size heart. No acute fracture. IMPRESSION: 1. No acute findings. This document has been electronically signed by: Oliver Bragg MD on 09/23/2024 20:18:03
[2024-09-23 19:26] VITALS: BP 146/74; PULSE 53; RESP 16; TEMP 36.6; O2SAT 100; BMI 24.9
--- NOTE | 2024-09-23 19:30 | ED.CHESTPAIN ---
HPI - Chest Pain General Chief Complaint: Chest Pain Stated Complaint: cp Time Seen by Provider: 09/23/24 19:31 Source: patient Mode of arrival: ambulatory Limitations: language barrier (Patient's 1st language is English, he does speak some [place], [facility] diplomatic interpreter) History of Present Illness ED Provider: Dr. David Tobar HPI narrative: 63-year-old male with a history of hypertension, hyperlipidemia, hepatitis-C which was treated, ventricular septal defect who presents emergency department for evaluation of shortness of breath and chest pain. 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 He states that there was a weird smell coming from the air conditioner. He states that he felt short of breath. He then developed a heaviness in his chest as if he had gas pains. He states that the pain started at 18:30 hours, has been intermittent, waxing and waning intensity with 10/10 at its worse in 8 on the pain did radiate to his neck but not to his jaw, arms or back. He states that the shortness of breath has resolved. He denied headache, nausea, vomiting, diaphoresis. He states he did feel lightheaded and dizzy but this has resolved as well. He denied fever, chills, rhinorrhea, sore throat, cough, abdominal pain. Related Data Previous Rx's ?Medication ?Instructions ?Recorded atorvastatin 10 mg tablet (Lipitor) 10 mg PO BEDTIME 90 days #90 tabs 09/10/24 losartan 25 mg tablet 25 mg PO DAILY 90 days #90 tabs 09/14/24 Allergies Allergy/AdvReac Type Severity Reaction Status Date / Time omeprazole Allergy Intermediate sob,tachyca Verified 09/23/24 19:28 rdia ribavirin Allergy Intermediate rash Verified 09/23/24 19:28 Review of Systems Review of Systems: Yes all other systems are reviewed and are negative [facility] Past Medical History [facility] Narrative: Social history: He denies tobacco, alcohol and drug use. Family history: No history of early heart attack, he states that his father had a heart attack at age 73 in his mother did have heart disease. Medical History Abdominal gas pain History of hepatitis C virus infection VSD (ventricular septal defect) Surgical History No pertinent past surgical history Family History Family History Father CVD (cardiovascular disease) Mother Hypertension Family/Other FH: mental illness Social History Social History Housing: Apartment Alcohol intake: former Year quit: 2009 Patient Tobacco Use Status: Former Tobacco user Tobacco use type: Cigarette Smoked in Last 30 Days: No e-Cigarette/Vaping Use: Never Used Second Hand Smoke Exposure: No Use of substances other than those prescribed or required for medical reasons: No Advance Directives: No Advance Directives Information Provided: No Do you have a plan to hurt others: No Plan service: No Current occupational status: other Cognitive needs: No Hearing needs: No Vision needs: Yes (reading glasses) Physical Exam Vital Signs: Vital Signs: Last Vital Signs Temp 97.9 F 09/23/24 19:26 Pulse 53 09/23/24 19:26 Resp 16 09/23/24 19:26 BP 146/74 H 09/23/24 19:26 Pulse Ox 100 09/23/24 19:26 O2 Del Method Room Air 09/23/24 19:26 BMI result Body Mass Index 24.9 Vital signs revealed an elevated blood pressure otherwise unremarkable Exam: General: Awake, alert in no distress Head: Normocephalic, atraumatic EENT: PERRL, Lids normal, sclera normal, conjunctiva normal, nose normal , ears normal, throat without erythema or exudates Neck: Supple, no adenopathy Lung: breath sounds symmetric, no wheezing, rales or rhonchi Chest: symmetric movement, nontender Heart: regular rate and rhythm, normal S1, S2 , holosystolic murmur best heard at the left lower sternal border Abdomen: soft, non-tender, nondistended, normal bowel sounds Back: no vertebral tenderness, no CVAT Extremities: no deformities, moves all extremities symmetrically Neuro: Awake, alert, oriented, normal speech, cranial nerves intact, moves all extremities symmetrically Psych: Pleasant, cooperative Medications Administered Discontinued Medications Generic Name Dose Route Start Last Admin Trade Name Freq PRN Reason Stop Dose Admin Aspirin 324 mg 07/18/25 20:04 09/23/24 20:10 Aspirin 81 Mg Tab.Chew PO 09/23/24 20:05 324 mg ONCE ONE Administration Ketorolac Tromethamine 15 mg 09/23/24 20:04 09/23/24 20:11 Ketorolac Tromethamine 15 Mg/Ml Vial IVPUSH 09/23/24 20:05 15 mg ONCE STA Administration Medical Decision Making Medical Decision Making [facility] Narrative: 63-year-old male with a history of hypertension, hyperlipidemia, hepatitis-C which was treated, ventricular septal defect who presents emergency department for evaluation of shortness of breath and chest pain. 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 He states that there was a weird smell coming from the air conditioner. He states that he felt short of breath. He then developed a heaviness in his chest as if he had gas pains. He states that the pain started at 18:30 hours, has been intermittent, waxing and waning intensity with 10/10 at its worse in 8 on the pain did radiate to his neck but not to his jaw, arms or back. He states that the shortness of breath has resolved. He denied headache, nausea, vomiting, diaphoresis. He states he did feel lightheaded and dizzy but this has resolved as well. Vital signs revealed an elevated blood pressure. Physical exam revealed a holosystolic murmur best heard at left lower sternal border consistent with a his VSD. Exam was otherwise unremarkable Differential diagnosis: ?Includes but is not limited to myocardial infarction, myocardial ischemia costochondritis, chest wall pain, carbon monoxide poisoning, bronchospasm, anemia, electrolyte abnormalities Course: 20:00 My independent interpretation patient's laboratory evaluation as follows: CBC was normal. BUN elevated 20, creatinine normal 1.18. Glucose elevated 131 LFTs were normal. High sensitive troponin I was detectable but not elevated at 3.5, repeat due at 19:30 hours. Patient was treated with Toradol 15 mg IV and aspirin 324 mg to chew. 22:51 Patient's 2 hour troponin was unchanged at 3.2. At this time I do not think that the patient had myocardial injury is the cause of his symptoms. I did discuss this with the patient. I did tell him that the restorationist bus admission system should be checked to make sure that there is not carbon monoxide leaking into the bus. Admission/Observation Consideration of admission/observation: Escalation of care including admission/observation considered (Yes) Lab Data MDM Lab Attestation statement: I reviewed the patient's lab results. 09/23/24 19:32 09/23/24 19:32 Labs: Lab Results 09/23/24 09/23/24 Range/Units 19:32 21:31 WBC 7.9 (4.8-10.8) X10*3/uL RBC 4.73 (4.60-5.80) X10*6/uL Hgb 14.1 (14.0-18.0) g/dl Hct 39.7 L (42.0-52.0) % MCV 83.9 (80.0-98.0) fL MCH 29.8 (27.0-33.0) pg MCHC 35.5 (31.0-36.0) g/dl RDW 11.8 (11.0-16.0) % Plt Count 234 (160-400) X10*3/uL MPV 10.1 (9.4-12.4) fL Immature Gran % (Auto) 0.3 (0.0-0.4) % Neut % (Auto) 51.5 (45-73) % Lymph % (Auto) 37.1 (20-40) % Harney % (Auto) 8.1 (2-11) % Eos % (Auto) 2.6 (0-4) % Baso % (Auto) 0.4 (0-2) % Lymph # (Auto) 2.9 (1.2-4.9) X10*3/uL Harney # (Auto) 0.6 (0.1-1.2) X10*3/uL Eos # (Auto) 0.2 (0.0-0.4) X10*3/uL Baso # (Auto) 0.0 (0.0-0.2) X10*3/uL Abs Immat Gran (auto) 0.02 (0.00-0.03) X10*3/uL Absolute Neuts (auto) 4.1 (2.0-8.3) x10*3/uL Absolute Nucleated RBC 0.000 (0.0-0.012) X10*3/uL Nucleated RBC % (auto) 0.0 (0.0-0.2) /100WBC Sodium 140 (135-145) mmol/L Potassium 3.7 (3.3-5.1) mmol/L Chloride 105 (96-108) mmol/L Carbon Dioxide 27 (22-29) mmol/L Anion Gap 12 (12-20) BUN 20 H (9-16) mg/dL Creatinine 1.18 (0.5-1.4) mg/dL Estim Creat Clear Calc 55.0 Estimated GFR > 60 Random Glucose 131 H (60-115) mg/dL Calcium 9.5 (8.4-10.2) mg/dL Total Bilirubin 0.4 (0.0-1.0) mg/dL AST 33 (5-37) U/L ALT 29 (0-40) U/L Alkaline Phosphatase 57 (39-117) U/L Troponin I High Sens 3.5 3.2 (<3.5-35.0) ng/L Total Protein 8.4 H (6.5-8.0) g/dL Albumin 4.8 (3.5-5.0) g/dL Influenza Type A (PCR) NEGATIVE (Negative) Influenza Type B (PCR) NEGATIVE (Negative) RSV RNA Qual (PCR) NEGATIVE (Negative) SARS-CoV-2 RNA (RT-PCR) NEGATIVE (Negative) Independent Interpretation I performed an independent interpretation of an: EKG and Plain X-Ray Interpretation: My independent interpretation patient's 12 EKG done on 09/23/2024 at 19:20 hours is as follows: Sinus bradycardia with a rate of 15, normal AR interval, QRS duration QTC interval, less than [address] segment elevation in lead 1 aVL, less than [address] segment depression in AVF. Inverted T-wave 3 and V1. Compared to an EKG dated 03/14/2023, the ST segment abnormalities are old, the inverted T-wave in 3 in his old in the inverted T-wave in V1 is new. This is reassuring and there is no significant change, ST segment elevations and depressions are old. My independent interpretation of the patient's one-view chest x-ray is as follows: No acute disease Radiology Impression Radiologist Impression: 1 view chest x-ray Comparison: CR/AR/SR - XR CHEST 2 VIEWS - 03/14/23 18:04 EST Findings: No consolidation or effusion. Normal size heart. No acute fracture. IMPRESSION: 1. No acute findings. This document has been electronically signed by: Oliver Bragg MD on 09/23/2024 20:18:03 Discharge Plan Discharge Clinical Impression: Chest pain, Acute dyspnea, Light-headed feeling Patient Disposition: Home, Self-Care Additional Instructions: Your blood work was unremarkable Your EKG was no different than your previous EKG which is reassuring. Your chest x-ray was normal. At this time, I do not have a clear cause for your symptoms. However, whenever someone gets lightheaded, dizzy and short of breath from exposure to odors in a bus were car it is important that the vehicle gets checked for exhaust leaks and carbon monoxide. You should not drive with a bus and people should not run bus until the bus gets check to make sure that it is safe. Follow-up with your doctor in 2 days. Please return to the emergency department if your symptoms get worse or if you develop any symptoms that are concerning to you. Prescriptions: No Action atorvastatin [Lipitor] 10 mg tablet 10 mg PO BEDTIME 90 Days Qty: 90 1RF losartan 25 mg tablet 25 mg PO DAILY 90 Days Qty: 90 1RF Print Language: English
[2024-09-23 19:38] LABS: MANUAL DIFF FLAG NO
[2024-09-23 19:39] LABS: Hematocrit 39.7 % (42.0-52.0); Hemoglobin 14.1 g/dl (14.0-18.0); Imm Gran Abs Auto 0.02 X10*3/uL (0.00-0.03); Imm Gran Pct Auto 0.3 % (0.0-0.4); Lymphocytes Absolute Auto 2.9 X10*3/uL (1.2-4.9); Mean Corpuscular HGB Conc 35.5 g/dl (31.0-36.0); Mean Corpuscular Hemoglobin 29.8 pg (27.0-33.0); Mean Corpuscular Volume 83.9 fL (80.0-98.0); NRBC Abs Auto 0.000 X10*3/uL (0.0-0.012); NRBC Pct Auto 0.0 /100WBC (0.0-0.2); Platelet Count 234 X10*3/uL (160-400); Red Blood Count 4.73 X10*6/uL (4.60-5.80); White Blood Count 7.9 X10*3/uL (4.8-10.8)
--- NOTE | 2024-09-23 19:41 | MHC.EDTECH ---
EKG completed at triage. There is a duplicate order .
--- NOTE | 2024-09-23 19:41 | PC.NURSE ---
pt from home, a&ox4, respirations even and unlabored. pt reports onset of midsternal chest pain after placing ac into the window. pt reports some intermittent shortness of breath and nausea. pt 100& on room air, nsr on tele. 18g placed in left ac, labs obtained.
[2024-09-23 19:53] LABS: Alanine Aminotransferase 29 U/L (0-40); Albumin Level 4.8 g/dL (3.5-5.0); Alkaline Phosphatase 57 U/L (39-117); Anion Gap 12 (12-20); Aspartate Amino Transferase 33 U/L (5-37); Blood Urea Nitrogen 20 mg/dL (9-16); Calcium 9.5 mg/dL (8.4-10.2); Carbon Dioxide 27 mmol/L (22-29); Chloride 105 mmol/L (96-108); Creatinine Clr Calc Pharmacy 55.0; Estimated Glomerular Filt Rate > 60; Potassium 3.7 mmol/L (3.3-5.1); Sodium 140 mmol/L (135-145); Total Protein 8.4 g/dL (6.5-8.0)
[2024-09-23 20:00] LABS: Troponin-I High Sensitivity 3.5 ng/L (<3.5-35.0)
--- OUTSIDE RECORDS SUMMARY | 2024-09-23 20:04 | XMS_ITS | Patient Health Record ---
Author Organization [facility] Address [address] [place] [address] Care Team Providers Care Flight Service Agent Name Role Phone Glory Hudson Primary Care Provider UnavailJd Cooley Unavailable [phone] Allergies No Known Allergies Results Component Value Reference Range Notes Complete Blood Count Auto Di ff Reviewed date:12/14/2023 11:56:20 PM Interpretation: Performing Lab:[facility], [address] [place] [phone] Notes/Report: White Blood Count 7.5 4.8-10.8 X10*3/uL [...] INR Reviewed date:12/14/2023 11:56:29 PM Interpretation: Performing Lab:[address] [phone] Notes/Report: Prothrombin Time 12.5 10.9-12.4 SEC [employer] [...] Panel Reviewed date:12/14/2023 11:57:10 PM Interpretation: Performing Lab:[facility], [address] [place] [phone] Notes/Report: Bilirubin Total 0.6 0.0-1.0 mg/dL Bilirubin Direct 0.2 0.0-0.5 mg/dL Aspartate Amino Transferase 25 5-37 U/L Alanine Aminotransferase 19 0-40 U/L Total Protein 8.5 6.5-8.0 g/dL Albumin Level 4.8 3.5-5.0 g/dL Alkaline Phosphatase 44 39-117 U/L Alpha Fetoprotein (Not yet r eviewed by provider) Interpretation: Performing Lab:[address] [address] Notes/Report: Alpha Fetoprotein 8.2 <6.1 ng/mL This test was performed using the Jennifer Christian chemiluminescent method. Values obtained from different assay methods cannot be used interchangeably. AFP levels, regardless of value, should not be interpreted as absolute evidence of the presence or absence of disease. THIS TEST WAS PERFORMED AT: [facility] [address] [place] [phone] SANDI MERRILL MD Liver Fibrosis Pnl Reviewed date:12/21/2023 05:49:30 PM Interpretation: Performing Lab:[facility], [address] [place] [phone] Notes/Report: Liver Fibrosis Score 0.57 Liver Fibrosis [...] a>0.62 and a<=1.00 : A3 (severe activity) JMQ-Btidl-2-Macroglobulin 390 106-279 mg/dL FIB-Haptoglobin 55 43-212 mg/dL FIB-Apolipoprotein A1 205 94-176 mg/dL FIB-Total Bilirubin 0.6 0.2-1.2 mg/dL FIB-GGT 30 3-70 U/L FIB-ALT 16 9-46 U/L Reference ID [id number] Footnote SEE NOTE The reliability of results [...] The performance characteristics have been determined by [facility]. It has not been cleared or approved by the U.S. Food and Drug Administration. Performance characteristics refer to the analytical performance of the test. [employer], [employer], the associated logo, [employer] and all associated [employer] morel are the registered trademarks of [employer]. All third green party morel - (R) and (TM) - are the property of their respective owners. (C) 3440-3984 [employer]. All rights reserved. THIS TEST WAS PERFORMED AT: [employer] [facility] [address] [place] [address] ANGELINE FLYNN MD,PHD,YING Hep C Viral Load Reviewed date:12/28/2023 11:11:01 PM Interpretation: Performing Lab:[facility], [address] [place] [phone] Notes/Report: HepC Viral Load <15 NOT DETECTED NOT DETECTED IU/mL HCV Log PCR <1.18 NOT DETECTED NOT DETECTED Log IU/mL For additional information, please refer to http://education.GeneriCo/faq/FAQ22v 1 (This link is being provided for informational/ educational purposes only.) THIS TEST WAS PERFORMED AT: [facility] [address] [place] [phone] SANDI MERRILL MD US abdomen das w elastograph y Reviewed date:12/14/2023 11:55:50 PM Interpretation: Performing Lab: Notes/Report: [address] [address] Ultrasound Report Signed Patient: Madelyn Cummings MR#: [id number] 6 : 1960 Acct:[id number] Age/Sex: 63 / M ADM Date: 12/14/23 Loc: HO.US Attending Dr: Jd Fraga MD Ordering Physician: Jd Fraga MD Date of Service: 12/14/23 Procedure(s): US abdomen das w elastography Accession Number(s): [id number] cc: Glory Hudson MD; Jd Fraga MD EXAMINATION: US ABDOMEN LIMITED WITH LIVER ELASTOGRAPHY CLINICAL INFORMATION: History of hepatitis C. COMPARISON: January 07, 2023. TECHNIQUE: Real-time imaging of the abdominal viscera. Noninvasive ultrasound liver fibrosis assessment is performed using a [address] [employer] to determine point quantification shear wave [...] in OV> 12/14/23 1149 DD/ TD/TT: 12/14/23925 Account Development Representative: Reason For Referral No Information Medications Medication [...] Problem Status W/U Status Risk Notes Problem 026538154 Chronic hepatiti s C without hepatic coma (B18.2) Active confirmed Problem 027043700 Elevated liver enzymes (R74.8) Active confirmed Problem 210538485 Gastroesophageal reflux disease, esophagitis presence not specified (K21.9) Active confirmed Problem 349466400 Elevated alpha fetoprotein (R77.2) Active confirmed Problem 61907489599812 History of hepatitis C (Z86.19) Active confirmed Problem 47989604 Liver fibrosis (K74.0) Active confirmed Problem 73650869 Liver fibrosis (K74.00) Active confirmed Vital Signs Blood pressure diastolic 00 mm Hg 12/03/2023 Height 65 in 12/03/2023 Blood pressure systolic 00 mm Hg 12/03/2023 Weight 145 lbs 12/03/2023 BMI 24.13 kg/m2 12/03/2023 Encounters Encounter Location Date Provider Diagnosis [facility] [address] [place] [address] 12/03/2023 Jd Fraga Liver fibrosis K74.00 and [...] PROFILE 07/02/2021 LIVER PROFILE 12/03/2023 LIVER PROFILE 03/10/2017 LIVER PROFILE 06/02/2017 CBC w DIFF 12/03/2023 CBC w DIFF 03/10/2017 CBC w DIFF 06/02/2017 CBC w DIFF 12/02/2022 CBC w DIFF 12/02/2016 CBC w DIFF 04/13/2017 CBC w DIFF 03/16/2015 CBC w DIFF 07/02/2021 PROTHROMBIN TIME (PT, INR) 07/02/2021 ALPHA-FETOPROTEIN,TUMOR MARKER 4 ALPHA-FETOPROTEIN,TUMOR MARKER 2 ALPHA-FETOPROTEIN,TUMOR MARKER 3 OTHER REF LAB TEST - MISC 06/19/2016 HEPATITIS C VIRAL LOAD 03/10/2017 HEPATITIS C VIRAL LOAD 06/02/2017 HEPATITIS C VIRAL LOAD 05/06/2016 HEPATITIS C [...] Provider Name:Jd Fraga , 12/01/2024 11:00:00 AM, [address] [place] [address], [address], [place], [address], Insurance Providers Payer Name Payer Address Payer Phone Subscriber Number Group Number Insured Name Patient Relationship to Insured Coverage Start Date Coverage End Date [facility] [employer] [facility] [address] [address] [place], [place] [id number] MADELYN CUMMINGS Self - patient is the insured MEDICAID [facility] [address] [place] [address] [id number] MADELYN CUMMINGS Self - patient is the insured Medical (General) History Medical History History ICD Code Chronic Hepatitis C--he desc ribes having been treated at [facility] for this many years ago and being treated with the non-pegylated IF TIW(no Ribavirin) without response--he describes a liver biopsy at [facility]. In January 2014 his hepatitis [...] had a liver biopsy in 2010 at [facility] with a grade 2/4 and [...] viral load in January of 2023. Denies SD,DM,CVA,Lung disease,renal dise ase Negative screening colonosco py in October of 2014, other than some internal hemorrhoids GERD Hypertension Surgical History Surgery Date(Month/Year)
--- OUTSIDE RECORDS SUMMARY | 2024-09-23 20:04 | XMS_ITS | Clinical Summary ---
Author Organization [facility] [facility] Address [address] [place] [phone] Phone Care Team Providers Care Gas Substation Operator Name Role Phone Unknown, Unknown Primary Care Provider Vishnu stewart Social History Tobacco Use Types Packs/Day Years Used Date Smoking Tobacco: Never Assessed Sex and Gender Information Value Date Recorded Sex Assigned at Not on file Legal Sex Male 3:38 PM EST Gender Identity Not on file Sexual Orientation Not on file Plan of Treatment Not on file Medical Devices Not on file Insurance [facility] [place] [address] [place] [address] [place] [address] [place] [address] [facility] P[facility] Care Teams Gas Substation Operator Relationship Specialty Start Date End Date Unknown, Unknown, PCP - General 04/13/14 Additional Source Comments The information contained in this document represents components of the legal health record. It is not the complete legal health record.[facility]
[2024-09-23 20:19] LABS: Resp Syncy Virus RNA Qual PCR NEGATIVE (Negative); SARS COV2 PCR INHOUSE NEGATIVE (Negative)
[2024-09-23 22:02] LABS: Troponin-I High Sensitivity 3.2 ng/L (<3.5-35.0)
[2024-09-23 23:08] VITALS: BP 120/62; PULSE 54; RESP 17; TEMP 36.9; O2SAT 98
== END 2024-09-23 23:11 | disposition home or self-care (01) ==
PROVIDERS: Emergency Provider Emergency Medicine Emergency Medical Services; PCP Internal Medicine
DX: R07.9 Chest pain, unspecified (principal); R06.02 Shortness of breath; R42 Dizziness and giddiness; I10 Essential (primary) hypertension; E78.5 Hyperlipidemia, unspecified; Z79.02 Long term (current) use of antithrombotics/antiplatelets; Z79.899 Other long term (current) drug therapy
CPT/HCPCS: 36415; 71045; 80053; 84484; 85025; 87637; 93005; 96374; 99284; 99285; J1885

== ENCOUNTER → 2024-09-23 19:20 | Outpatient (BNV) | payer OTHER, SELFPAY | PROVIDERS: Emergency Provider Emergency Medicine Emergency Medical Services; PCP Internal Medicine; Visit Provider Internal Medicine | DX: R00.1 Bradycardia, unspecified (principal) | CPT/HCPCS: 93010 ==

== ENCOUNTER → 2024-09-23 19:50 | Outpatient (BNV) | payer OTHER, SELFPAY | PROVIDERS: Emergency Provider Emergency Medicine Emergency Medical Services; PCP Internal Medicine; Visit Provider Radiology Diagnostic Radiology | DX: R06.02 Shortness of breath (principal); R07.9 Chest pain, unspecified | CPT/HCPCS: 71045 ==

== ENCOUNTER 2024-12-14 10:23 | Outpatient (AMB) | payer OTHER, SELFPAY ==
--- NOTE | 2024-12-14 10:33 | MHC.PC.OV ---
Vital Signs 12/14/24 10:34 Height 5 ft 4 in Weight 144 lb 2 oz BMI 24.7 BP 130/62 Blood Pressure Location Lt brachial Position Sitting Respiration 18 Pulse 59 Pulse Source Pulse Oximeter Temp 97.1 F Temp Source Temporal Artery Scan Pulse Oximetry (%) 99 Oxygen Delivery Method Room Air Intake Visit Reasons: lump near private part Die Trouble Shooter Required: Yes Die Trouble Shooter Language: Kinyarwanda Accompanied by: Self / Same As Patient Allergies omeprazole Allergy (Intermediate, Verified 12/14/24 10:37) sob,tachycardia ribavirin Allergy (Intermediate, Verified 12/14/24 10:37) rash Tobacco use date assessed: 12/14/24 Dental Screening Dental Screen Date: 12/14/24 Did you have a dental visit in the last 12 months?: No Did you have a dental problem in the last 6 months where you did not have access to dental care?: No Was dental information given to patient?: Patient has dentist HPI HPI Comments History of Present Illness Details The patient is a 64-year-old male presenting with a palpable mass in the right inguinal region. The mass appeared suddenly about a week ago without any known inciting event such as heavy lifting. It is tender to touch but does not cause pain during ambulation. The patient has attempted self-treatment with topical creams, including Vicks and another cream provided by his mother, without relief. [facility] Medical History Abdominal gas pain History of hepatitis C virus infection VSD (ventricular septal defect) Surgical History No pertinent past surgical history Family History Father CVD (cardiovascular disease) Mother Hypertension Family/Other FH: mental illness Social History Housing: Apartment Alcohol intake: former Year quit: 2009 Patient Tobacco Use Status: Former Tobacco user Tobacco use type: Cigarette e-Cigarette/Vaping Use: Never Used Second Hand Smoke Exposure: No service: No Current occupational status: other Cognitive needs: No Hearing needs: No Vision needs: Yes (reading glasses) Questionnaire PHQ-9 Over the last 2 weeks, how often have you been bothered by any of the following problems? 1. Little interest or pleasure in doing things: more than half the days 2. Feeling down, depressed, or hopeless: more than half the days 3. Trouble falling or staying asleep, or sleeping too much: not at all 4. Feeling tired or having little energy: not at all 5. Poor appetite or overeating: not at all 6. Feeling bad about yourself - or that you are a failure or have let yourself or your family down: not at all 7. Trouble concentrating on things, such as reading the newspaper or watching television: not at all 8. Moving or speaking so slowly that other people could have noticed. Or the opposite - being so fidgety or restless that you have been moving around a lot more than usual: not at all 9. Thoughts that you would be better off or of hurting yourself in some way: not at all Total score: 4 Source: Developed by Drs. Jd Smith, Felicitas Cosme, Leonardo Rogers and colleagues, with an educational espinoza from [employer]. Thrive Questionnaire Date Thrive assessed: 09/14/24 I am a: Parent/Caregiver What is your living situation today?: I have a steady place to live Within the past 12 months, did the food you bought not last and you didn't have the money to get more?: Often true Within the past 12 months, did you worry whether your food would run out before you got money to buy more?: Sometimes True Do you have trouble paying for medicines?: No Do you have trouble getting transportation to medical appointments?: No Do you have trouble paying your heating and electricity bill?: No Do you have trouble taking care of your child, family member or friend?: No Do you have trouble with day-to-day activities such as bathing, preparing meals, shopping, managing finances, etc.?: No Are you currently unemployed and looking for a job?: Yes Are you interested in more education?: No Please select the resources that you would like help with: None Currently or been in a relationship where the following occur: No concerns reported THRIVE Score: 2 AUDIT C Alcohol Use Questionnaire (AUDIT-C) 1. How often do you have a drink containing alcohol?: Never Total Score: 0 KATEY-7 AMB Questionnaire KATEY-7 Date KATEY - 7 assessed: 09/14/24 Feeling nervous, anxious, or on edge: 1 = Several days Not being able to stop or control worryin = More than half the days Worrying too much about different things: 1 = Several days Trouble relaxin = Several days Being so restless that it is hard to sit still: 1 = Several days Becoming easily annoyed or irritable: 2 = More than half the days Feeling afraid as if something awful might happen: 2 = More than half the days Total KATEY-7 score (0-4 normal; 5-9 mild; 10-14 moderate; 15-21 severe): 10 Source: Developed by Drs. Jd Smith, Felicitas Cosme, Leonardo Rogers and colleagues, with an educational espinoza from [employer]. Physical exam (Primary Care) Vital Signs: Last Vital Signs Temp 97.1 F 12/14/24 10:34 Pulse 59 12/14/24 10:34 Resp 18 12/14/24 10:34 BP 130/62 12/14/24 10:34 Pulse Ox 99 12/14/24 10:34 Oxygen Delivery Method Room Air 12/14/24 10:34 BMI result Body Mass Index 24.7 Tobacco/Smoking Status: Tobacco use Status Tobacco use date assessed 12/14/24 12/14/24 10:40 Patient Tobacco Use Status Former Tobacco user 12/14/24 10:40 Tobacco use type Cigarette 12/14/24 10:40 e-Cigarette/Vaping Use Never Used 12/14/24 10:40 PHQ-9: PHQ-9 Score PHQ-9: Total score 4 12/14/24 10:41 Thrive Assessment: Date of Thrive Assessment Date Thrive assessed 09/14/24 12/14/24 10:40 Currently or been in a relationship where the following occur: No concerns reported Const Other: Pertinent findings are in BOLD GENERAL APPEARANCE NAD, activity normal for age, well developed/ well nourished, no cyanosis, pallor, or diaphoresis. EYES lids/conjunctiva normal. EARS/NOSE/THROAT Mucous membranes moist, nares normal, lips/teeth normal uvula midline without oral pharyngeal erythema, exudate or swelling TMs normal bilaterally. No lymphangitis/lymphedema. HEAD/NECK normocephalic atraumatic, no facial trauma, neck is supple. RESPIRATORY respiratory effort normal, speaks in full sentences, no tripod position, no accessory muscle use. Lungs clear to auscultation without rhonchi, wheezes, rales CARDIAC Regular rate and rhythm, no edema. ABDOMINAL Soft, ND/NT. No evidence of fluid wave. No pulsatile masses on exam, rebound tenderness, Adams sign or pain over Mcburney's point. Inguinal hernia reproduceable. MUSCLES/EXTREMITIES No abnormal range of motion, no swelling. SKIN Warm, pink and dry. No rashes, dermatoses, petechiae or lesions. NEUROLOGICAL Speech is clear and appropriate. Normal level of consciousness. Gait and coordination are normal. 5/5 strength in all extremities. PSYCH Normal mood and affect. Judgement/competence is appropriate Coding Level of Care Code Est Pt Level 3 (82680) Diagnoses Inguinal hernia K40.90 Time Spent (min) 20 Assessment & Plan Assessment & Plan (1) Inguinal hernia: Code(s): K40.90 - Unilateral inguinal hernia, without obstruction or gangrene, not specified as recurrent Category: Medical Plan: - Referral to surgery for urgent evaluation and management. - CT scan ordered to assess the extent of the hernia. - Advised to seek immediate care if symptoms worsen, such as increased pain, fever, or bowel obstruction symptoms. Plan I discussed with the patient the likelihood of an inguinal hernia and the need for urgent surgical evaluation. We reviewed the plan to obtain a CT scan to further assess the condition and the importance of seeking immediate care if symptoms worsen. Orders: Orders CT abdomen wo IV con Today K40.90 - Unilateral inguinal hernia, without obstruction or gangrene, not specified as recurrent Referrals General Surgery Referral K40.90 - Unilateral inguinal hernia, without obstruction or gangrene, not specified as recurrent
[2024-12-14 10:34] VITALS: BP 130/62; PULSE 59; RESP 18; TEMP 36.2; O2SAT 99; BMI 24.7
== END 2024-12-14 10:58 | disposition home or self-care (01) ==
LOC: HO.HMCH 10:24
PROVIDERS: PCP Internal Medicine; Visit Provider Internal Medicine
DX: K40.90 Unilateral inguinal hernia, without obstruction or gangrene, not specified as recurrent (principal)

== ENCOUNTER → 2024-12-14 10:23 | Outpatient (BNVA) | payer OTHER, SELFPAY | PROVIDERS: PCP Internal Medicine; Visit Provider Internal Medicine | DX: K40.90 Unilateral inguinal hernia, without obstruction or gangrene, not specified as recurrent (principal) | CPT/HCPCS: 99212 ==

== ENCOUNTER 2025-01-17 09:43 | Outpatient (REF) | payer OTHER, SELFPAY ==
--- NOTE | ~2025-01-17 | US_ITS ---
EXAMINATION: US COMPLETE ABDOMEN WITH LIVER ELASTOGRAPHY CLINICAL INFORMATION: Previous exam most recent December 2023 COMPARISON: None available. TECHNIQUE: Real-time imaging of the abdominal viscera. Noninvasive ultrasound liver fibrosis assessment is performed using Siemens shear wave elastography (pSWE).. Multiple (15) elastography samples are obtained. FINDINGS: PANCREAS: The visualized pancreatic head and body are normal in appearance. The remainder of the pancreas is obscured from visualization by the overlying bowel gas. ABDOMINAL AORTA: No aortic aneurysm is seen. INFERIOR VENA CAVA: Visualized portions are normal. LIVER: The liver demonstrates slightly lobulated contour and heterogeneous echotexture suggestive of hepatocellular disease and mild cirrhotic change. No focal lesion or intrahepatic biliary duct dilatation. The right lobe measures 11 cm in length. The left lobe measures 9.4 cm in length. Portal flow is normal/hepatopedal Shear wave liver elastography median stiffness is 1.79 m/s (reference: normal median stiffness is 1.3 m/s or less). Previous 1.71 m/s. IQR/median stiffness to assess sampling precision is 0.27 (reference: good quality data set is IQR/median stiffness of 0. 3 0 or less). GALLBLADDER: The gallbladder is physiologically distended without evidence of stones, sludge, polyps, wall thickening or pericholecystic fluid. COMMON BILE DUCT: Normal in caliber measuring 0.3 cm in diameter. RIGHT KIDNEY: No hydronephrosis. No renal calculi or focal parenchymal lesions. The kidney measures 9 cm in maximum dimension. LEFT KIDNEY: No hydronephrosis. No renal calculi or focal parenchymal lesions. The kidney measures 10.9 cm in maximum dimension. SPLEEN: Unremarkable. The spleen measures 7.5 cm in maximum dimension. FREE FLUID: None seen. US/US abdomen comp w elastography IMPRESSION: 1. Impression: Mild cirrhotic changes of the liver. No focal liver lesion or ascites. 2. Liver elastography: Liver stiffness 1.79 m/s. Measurements are suggestive of compensated advanced chroniic liver disease but need further test for confirmation. Liver stiffness measurement is without significant change from prior exam (change under 10%). REFERENCE: Society of Radiologists in Ultrasound Liver Stiffness Thresholds (2020): LIVER STIFFNESS THRESHOLDS: *Liver Stiffness equal or less than 1.3 m/s: High probability of being normal. *Liver Stiffness less than 1.7 m/s: In the absence of other known clinical signs, rules out compensated advanced chronic liver disease. *Liver Stiffness 1.7-2.1 m/s: Suggestive of compensated advanced chronic liver disease but need further test for confirmation. *Liver Stiffness over 2.1 m/s: Rules in compensated advanced chronic liver disease. *Liver Stiffness over 2.4 m/s: Suggestive of clinically significant portal hypertension. QUALITY OF DATA SET: *IQR/Median value equal or less than 0.30 implies a quality data set. *IQR/Median value over 0.30 implies a poor quality data set. SIGNIFICANT CHANGE FROM PRIOR EXAM: Significant change if liver stiffness measurement is 10% or greater from prior exam. OTHER CONSIDERATIONS: The stage of liver fibrosis may be overestimated in the setting of acute hepatitis, liver inflammation, elevated liver function tests, hepatic vascular congestion, obstructive cholestasis, non-fasting state, and infiltrative diseases such as amyloidosis and lymphoma. In some patients with NAFLD, the liver stiffness thresholds for compensated advanced chronic liver disease may be lower. In causes other than viral hepatitis and NAFLD, liver stiffness thresholds are not well established. Electronically signed by: Carlotta Bowen MD 01/17/2025 10:43 AM EST
--- OUTSIDE RECORDS SUMMARY | 2025-01-17 10:54 | XMS_ITS | Clinical Summary ---
Author Organization [facility] Address [address] [place] [phone] Phone Care Team Providers Care Firewall Security Engineer Name Role Phone Unknown, Unknown Primary Care [...] file Medical Devices Not on file Insurance [facility] [place] [address] [place] [address] [place] [address] [place] [address] [facility] PCC Care Teams Firewall Security Engineer Relationship Specialty Start Date End Date Unknown, Unknown, PCP - General 04/13/14 Additional Source Comments The information contained in this document represents components of the legal health record. It is not the complete legal health record.[facility]
--- OUTSIDE RECORDS SUMMARY | 2025-01-17 10:54 | XMS_ITS | Patient Health Record ---
Author Organization [facility] Address [address] [place] [address] Care Team Providers Care Senior Compensation Analyst Name Role Phone Glory Hudson Primary Care Provider Unavailab Jd Choe Unavailable [phone] Allergies No Known Allergies Results Component Value Reference Range Notes US abdomen comp w elastograp hy (Not yet reviewed by provider) Interpretation: Performing Lab: Notes/Report: [facility] [address] [place] [address] Ultrasound Report Signed Patient: Madelyn Cummings MR#: [id number] 6 : 1960 Acct:[id number] Age/Sex: 64 / M ADM Date: 01/17/25 Loc: HO.US Attending Dr: Jd Fraga MD Ordering Physician: Jd Fraga MD Date of Service: 01/17/25 Procedure(s): US abdomen comp w elastography Accession Number(s): [id number] cc: Glory Hudson MD; Jd Fraga MD Reason for Exam: HEP C,LIVER FIBROSIS EXAMINATION: US COMPLETE ABDOMEN WITH LIVER ELASTOGRAPHY CLINICAL INFORMATION: Previous exam most recent December 2023 COMPARISON: None available. TECHNIQUE: Real-time imaging of the abdominal viscera. Noninvasive ultrasound liver fibrosis assessment is performed using Siemens shear wave elastography (pSWE).. Multiple (15) elastography samples are obtained. FINDINGS: PANCREAS: The visualized pancreatic head and body are normal in appearance. The remainder of the pancreas is obscured from visualization by the overlying bowel gas. ABDOMINAL AORTA: No aortic aneurysm is seen. INFERIOR VENA CAVA: Visualized portions are normal. LIVER: The liver demonstrates slightly lobulated contour and heterogeneous echotexture suggestive of hepatocellular disease and mild cirrhotic change. No focal lesion or intrahepatic biliary duct dilatation. The right lobe measures 11 cm in length. The left lobe measures 9.4 cm in length. Portal flow is normal/hepatopedal Shear wave liver elastography median stiffness is 1.79 m/s (reference: normal median stiffness is 1.3 m/s or less). Previous 1.71 m/s. IQR/median stiffness to assess sampling precision is 0.27 (reference: good quality data set is IQR/median stiffness of 0. 3 0 or less). GALLBLADDER: The gallbladder is physiologically distended without evidence of stones, sludge, polyps, wall thickening or pericholecystic fluid. COMMON BILE DUCT: Normal in caliber measuring 0.3 cm in diameter. RIGHT KIDNEY: No hydronephrosis. No renal calculi or focal parenchymal lesions. The kidney measures 9 cm in maximum dimension. LEFT KIDNEY: No hydronephrosis. No renal calculi or focal parenchymal lesions. The kidney measures 10.9 cm in maximum dimension. SPLEEN: Unremarkable. The spleen measures 7.5 cm in maximum dimension. FREE FLUID: None seen. US/US abdomen comp w elastography IMPRESSION: 1. Impression: Mild cirrhotic changes of the liver. No focal liver lesion or ascites. 2. Liver elastography: Liver stiffness 1.79 m/s. Measurements are suggestive of compensated advanced chroniic liver disease but need further test for confirmation. Liver stiffness measurement is without significant change from prior exam (change under 10%). REFERENCE: Society of Radiologists in Ultrasound Liver Stiffness Thresholds (2020): LIVER STIFFNESS THRESHOLDS: *Liver Stiffness equal or less than 1.3 m/s: High probability of being normal. *Liver Stiffness less than 1.7 m/s: In the absence of other known clinical signs, rules out compensated advanced chronic liver disease. *Liver Stiffness 1.7-2.1 m/s: Suggestive of compensated advanced chronic liver disease but need further test for confirmation. *Liver Stiffness over 2.1 m/s: Rules in compensated advanced chronic liver disease. *Liver Stiffness over 2.4 m/s: Suggestive of clinically significant portal hypertension. QUALITY OF DATA SET: *IQR/Median value equal or less than 0.30 implies a quality data set. *IQR/Median value over 0.30 implies a poor quality data set. SIGNIFICANT CHANGE FROM PRIOR EXAM: Significant change if liver stiffness measurement is 10% or greater from prior exam. OTHER CONSIDERATIONS: The stage of liver fibrosis may be overestimated in the setting of acute hepatitis, liver inflammation, elevated liver function tests, hepatic vascular congestion, obstructive cholestasis, non-fasting state, and infiltrative diseases such as amyloidosis and lymphoma. In some patients with NAFLD, the liver stiffness thresholds for compensated advanced chronic liver disease may be lower. In causes other than viral hepatitis and NAFLD, liver stiffness thresholds are not well established. Electronically signed by: Carlotta Bowen MD 01/17/2025 10:43 AM EST Dictated By: Carlotta Bowen MD Signed By: <Electronically signed by Carlotta Bowen MD in OV> 01/17/25 1043 DD/ 1005 TD/TT: 01/17/25 1025 Editor Magazine: COOPER Reason For Referral No Information Medications Medication SIG (Take, Route, Frequency, Duration) Notes Start Date End Date Status Ibuprofen 800 MG Orally Not -Taking Simethicone 125 MG 1 tablet after meals and at bedtime as needed Orally Four times a day Not-Taking SUMAtriptan Succinate 25 MG TAKE 1 TABLET BY MOUTH EVERY 2-4 HOURS NEEDED FOR MIGRAINE MAX 8 TABLETS DAILY Oral; Duration: 30 Not-Taking Omeprazole 20 MG 1 capsule Orally Onc e a day; Duration: 30 Not-Taking Atorvastatin Calcium 20 MG TAKE 1 TABLET BY MOUTH EVERY DAY AT BEDTIME Oral; Duration: 90 Active Losartan Potassium 25 MG Oral; Duration: 90 Active Acetaminophen ER 650 MG Oral; Duration: 30 PRN Active Multivitamin Adult Orally A ctive Immunizations Vaccine Route Administration Date Status Comme nts Influenza Unknown 11/07/2017 Administered Influenza Unknown 11/07/2020 Administered Influenza Unknown 12/02/2022 Refused Influenza Unknown 12/01/2024 Refused Problems Problem Type SNOMED Code ICD Code Onset Dates Problem Status W/U Status Risk Notes Problem Colon cancer screening (121236525) Colon cancer screening (Z12.11) Active confirmed Problem Chronic hepatitis C (690650985) Chronic hepatitis C without hepatic coma (B18.2) Active confirmed Problem Elevated liver enzymes level (890349282) Elevated liver enzymes (R74.8) Active confirmed Problem Gastroesophageal reflux disease (830915154) Gastroesophageal reflux disease, esophagitis presence not specified (K21.9) Active confirmed Problem Serum alpha-fetoprotein level elevated (576990545) Elevated alpha fetoprotein (R77.2) Active confirmed Problem History of hepatitis C (60972801955440) History of hepatitis C (Z86.19) Active confirmed Problem Hepatic fibrosis (disorder) (40689840) Liver fibrosis (K74.0) Active confirmed Problem Hepatic fibrosis (disorder) (87449216) Liver fibrosis (K74.00) Active confirmed Vital Signs Temperature 98.4 degrees Fahrenheit 12/01/2024 Blood pressure diastolic 01 mm Hg 12/01/2024 Height 65 in 12/01/2024 Blood pressure systolic 001 mm Hg 12/01/2024 Weight 146.4 lbs 12/01/2024 BMI 24.36 kg/m2 12/01/2024 Procedures Procedure Date Ordered Date Performed Result Body Sit e COLONOSCOPY 12/01/2024 N/A Encounters Encounter Location Date Provider Diagnosis [facility] [address] [place] [phone] 12/01/2024 Jd Fraga History of hepatitis C Z86.19 ; Liver fibrosis K74.00 and Colon cancer screening Z12.11 [facility] [address] [place] [phone] 12/01/2024 Jd Fraga Assessments Encounter Date Diagnosis (ICD Code) Assessment Notes Treatment Notes Treatment Clinical Notes Section Notes 12/01/2024 History of hepatitis C (ICD-10 - Z86.19) Overall, Madelyn appears quite well. He does not show any signs nor have any symptoms of progressive liver disease. I shall check a follow-up abdominal ultrasound along with laboratories including a liver fibrosis score and alpha-fetoprotei n level. We did review that he should have the studies yearly due to his previous history of hepatitis C and evidence of fibrosis on his previous liver biopsy. I have also recommended a follow-up colonoscopy for further screening given his last exam being just over 10 years ago. We did review the rationale for this in regard to colon cancer prevention. Full consent is obtained for this, including risk of bleeding and perforation. The procedure will be done with monitored anesthesia care. Madelyn was comfortable with this plan. Thank you again for allowing me to participate in Madelyn's care. I shall continue to keep you advised of his progress. 12/01/2024 Liver fibrosis (ICD-10 - K74.00) Overall, Madelyn appears quite well. He does not show any signs nor have any symptoms of progressive liver disease. I shall check a follow-up abdominal ultrasound along with laboratories including a liver fibrosis score and alpha-fetoprotei n level. We did review that he should have the studies yearly due to his previous history of hepatitis C and evidence of fibrosis on his previous liver biopsy. I have also recommended a follow-up colonoscopy for further screening given his last exam being just over 10 years ago. We did review the rationale for this in regard to colon cancer prevention. Full consent is obtained for this, including risk of bleeding and perforation. The procedure will be done with monitored anesthesia care. Madelyn was comfortable with this plan. Thank you again for allowing me to participate in Madelyn's care. I shall continue to keep you advised of his progress. 12/01/2024 Colon cancer screening (ICD-10 - Z12.11) Overall, Madelyn appears quite well. He does not show any signs nor have any symptoms of progressive liver disease. I shall check a follow-up abdominal ultrasound along with laboratories including a liver fibrosis score and alpha-fetoprotei n level. We did review that he should have the studies yearly due to his previous history of hepatitis C and evidence of fibrosis on his previous liver biopsy. I have also recommended a follow-up colonoscopy for further screening given his last exam being just over 10 years ago. We did review the rationale for this in regard to colon cancer prevention. Full consent is obtained for this, including risk of bleeding and perforation. The procedure will be done with monitored anesthesia care. Madelyn was comfortable with this plan. Thank you again for allowing me to participate in Emilianos care. I shall continue to keep you advised of his progress. Plan Of Treatment Pending Test Test Name Order Date COLONOSCOPY 12/01/2024 LIVER PROFILE 05/06/2016 LIVER PROFILE 04/13/2017 LIVER PROFILE 12/02/2022 LIVER PROFILE 03/16/2015 LIVER PROFILE 12/01/2024 LIVER PROFILE 03/10/2017 LIVER PROFILE 07/02/2021 LIVER PROFILE 12/03/2023 LIVER PROFILE 06/02/2017 CBC w DIFF 07/02/2021 CBC w DIFF 12/03/2023 CBC w DIFF 06/02/2017 CBC w DIFF 04/13/2017 CBC w DIFF 12/02/2022 CBC w DIFF 03/16/2015 CBC w DIFF 12/02/2016 CBC w DIFF 12/01/2024 CBC w DIFF 03/10/2017 PROTHROMBIN TIME (PT, INR) 07/02/2021 ALPHA-FETOPROTEIN,TUMOR MARKER 5 ALPHA-FETOPROTEIN,TUMOR MARKER 4 ALPHA-FETOPROTEIN,TUMOR MARKER 2 ALPHA-FETOPROTEIN,TUMOR MARKER 3 OTHER REF LAB TEST - MISC 06/19/2016 HEPATITIS C VIRAL LOAD 03/10/2017 HEPATITIS C VIRAL LOAD 05/06/2016 HEPATITIS C VIRAL LOAD 12/01/2024 HEPATITIS C VIRAL LOAD 06/02/2017 HEPATITIS C VIRAL LOAD 12/03/2023 HEPATITIS C VIRAL LOAD 07/02/2021 HEPATITIS C VIRAL LOAD 04/13/2017 HEPATITIS C VIRAL LOAD 03/16/2015 HEPATITIS C VIRAL LOAD 12/02/2022 MRI ABD W&WO CONTRAST 01/13/2015 MRI ABD W&WO CONTRAST 01/03/2016 MRI ABD W&WO CONTRAST 04/13/2018 HCV LIVER FIBROSIS, FIBRO TEST 3 HCV LIVER FIBROSIS, FIBRO TEST 5 HCV LIVER FIBROSIS, FIBRO TEST 4 HCV LIVER FIBROSIS, FIBRO TEST 2 HCV RNA NS5A DRUG RESISTANCE 05/06/2016 US ABDOMEN COMP WITH ELASTOGRAPHY 2021 Prothrombin Time INR 12/02/2022 Prothrombin Time INR 12/01/2024 Prothrombin Time INR 12/03/2023 Alpha Fetoprotein 12/14/2023 US abdomen comp w elastography 4 US abdomen comp w elastography 3 US abdomen comp w elastography 5 US abdomen comp w elastography 3 US abdomen comp w elastography 5 Future Test Test Name Order Date COLONOSCOPY 07/20/2014 Next Appt Details Provider Name:Jd Shukla Philly , 03/15/2025 09:30:00 AM, [address] [place] [address] , [place], [place], [phone], Insurance Providers Payer Name Payer Address Payer Phone Subscriber Number Group Number Insured Name Patient Relationship to Insured Coverage Start Date Coverage End Date [facility] [address] [address] [place], [place] [id number] [phone] [id number] MADELYN CUMMINGS Self - patient is the insured MEDICAID OF [facility] [address] [place] [phone] [id number] MADELYN CUMMINGS Self - patient is the insured Medical (General) History Medical History History ICD Code Chronic Hepatitis C- he desc ribes having been treated at [facility] for this many years ago and being treated with the non-pegylated IF TIW(no Ribavirin) without response- he describes a liver biopsy at [facility]. In January 2014 his hepatitis C [...] had a liver biopsy in 2010 at [facility] with a grade 2/4 and stage [...] His workup also revealed probable resistance to ledipasvir(Harvoni). Started Mavyret in early 04/2017- - Hep C viral load neg. in early 05/2017 and LFT's were normal as well; Hep C viral load was neg. in 07/2017. His hepatitis C viral load remained negative in 2019 and his alpha-fetoprotein level dropped to 10. His MRI of the liver was also negative for any lesions in 2019. Nondetectable hepatitis C viral load in January of 2023. Denies WA,DM,CVA,Lung disease,renal dise ase Negative screening colonosco py in October of 2014, other than some internal hemorrhoids GERD Hypertension Surgical History Surgery Date(Month/Year)
--- OUTSIDE RECORDS SUMMARY | 2025-01-17 10:54 | XMS_ITS | Clinical Summary ---
Author Organization [address] [place] [address] Address [address] [place] [address] Phone Care Team Providers Care Drill Punch Operator Name Role Phone Glory Saeed MD Primary Care Provider [phone] Allergies Active Allergy Reactions Criticality Noted Date [...] Assessment & Plan (05/27/2024 1:40 PM EDT): Medical History Medical History Date Comments Dyspnea [...] Health Maintenance Due Date Last Done Comments Colorectal Cancer Screening: Colonoscopy 1960 Hepatitis B Vaccines (2 of 3 - 19+ 3-dose series) 02/26/2011 01/29/2011 Pneumococcal Vaccine: 50+ Years (1 of 1 - PCV) 2012 Zoster Vaccines (1 of 2) 2012 Cholesterol Screening (Lipid Panel) 02/09/2022 HIV Screening 02/09/2022 Hepatitis C Screening 02/09/2022 Social Influencers of Health Screening 02/09/2022 Hypertension/CHF/CAD Annual BMP Blood Test 02/05/2024 02/04/2023 Depression Screening 03/09/2024 COVID-19 Vaccine (1 - 2024- season) 2024 Influenza Vaccine (#1) 2024 , 02/21/2019, 02/01/2018, Additional history exists DTaP,Tdap,and Td Vaccines (2 - Td or Tdap) 01/21/2026 01/22/2016 RSV Immunization Adult Patients (1 - 1-dose 75+ series) 2037 HIB Vaccines Aged Out No longer eligi ble based on patient's age to complete this topic HPV Vaccines Aged Out No longer eligi ble based on patient's age to complete this topic Hepatitis A Vaccines Aged Out No long er eligible based on patient's age to complete [...] Procedure Name Priority Date/Time Associated Diagnosis Comments ANNUAL BMP BLOOD TEST Routine 02/04/2023 from Last 3 Months or Most Recently Relevant to Health Maintenance Results * Annual BMP Blood Test (02/04/2023) Annual BMP Blood Test abstracted us Historical Provider HEALTH MAINTENANCE Final Result from Last 3 Months or Most Recently Relevant to Health Maintenance Insurance [facility] Care Teams Drill Punch Operator Relationship Specialty Start Date End Date Glory Saeed MD [address] [facility] , [address] [facility] D/B/A: [facility] GIOVANNI Hernandez PCP - General Internal Medicine 06/21/20
== END 2025-01-17 09:44 | disposition home or self-care (01) ==
LOC: HO.US 09:43
PROVIDERS: PCP Internal Medicine; Visit Provider Internal Medicine
DX: K74.00 Hepatic fibrosis, unspecified (principal); Z86.19 Personal history of other infectious and parasitic diseases
CPT/HCPCS: 76700; 76981

== ENCOUNTER → 2025-01-17 10:05 | Outpatient (BNV) | payer OTHER, SELFPAY | PROVIDERS: PCP Internal Medicine; Visit Provider Radiology Diagnostic Radiology | DX: B18.2 Chronic viral hepatitis C (principal); K74.00 Hepatic fibrosis, unspecified | CPT/HCPCS: 76700 ==